=== PATIENT | female | born 1935 | race Caucasian/White ===

== ENCOUNTER → 2017-01-18 | Outpatient (CLI) | payer MEDICARE, OTHER ==
[2017-01-18 10:56] LABS: ABSOLUTE BASOPHILS # (AUTO) 0.1 10^3/uL (0.0-0.2); ABSOLUTE EOSINOPHILS # (AUTO) 0.3 10^3/uL (0.0-0.6); ABSOLUTE LYMPHOCYTES (AUTO) 1.8 10^3/uL (0.5-4.7); ABSOLUTE MONOCYTES (AUTO) 0.6 10^3/uL (0.1-1.4); ABSOLUTE NEUT (AUTO) 4.5 10^3/uL (1.7-8.2); BASOPHILS % (AUTO) 0.8 % (0-2); EOSINOPHILS % (AUTO) 4.1 % (0-6); HEMATOCRIT 39.7 % (36.0-47.0); HEMOGLOBIN 13.1 g/dL (12.0-15.5); HGB HCT DIFFERENCE -0.4; LYMPHOCYTES % (AUTO) 25.3 % (13-45); MEAN CORPUSCULAR HEMOGLOBIN 29.5 pg (27.0-33.4); MEAN CORPUSCULAR VOLUME 89 fl (80-97); MONOCYTES % (AUTO) 8.1 % (3-13); RED BLOOD COUNT 4.44 10^6/uL (3.72-5.28); RED CELL DISTRIBUTION WIDTH 13.8 % (11.5-14.0); SEGMENTED NEUTROPHILS % (AUTO) 61.7 % (42-78); WHITE BLOOD COUNT 7.3 10^3/uL (4.0-10.5)
[2017-01-18 11:26] LABS: ALANINE AMINOTRANSFERASE 26 U/L (9-52); ALBUMIN 3.5 g/dL (3.5-5.0); ALKALINE PHOSPHATASE 95 U/L (38-126); ANION GAP 10 (5-19); ASPARTATE AMINO TRANSFERASE 22 U/L (14-36); BILIRUBIN,TOTAL 0.5 mg/dL (0.2-1.3); BLOOD UREA NITROGEN 14 mg/dL (7-20); CALCIUM 9.9 mg/dL (8.4-10.2); CARBON DIOXIDE 25 mmol/L (22-30); CHLORIDE 106 mmol/L (98-107); CREATININE RESULT 0.77 mg/dL (0.52-1.25); GLUCOSE 140 mg/dL (75-110); POTASSIUM 4.9 mmol/L (3.6-5.0); SODIUM 140.9 mmol/L (137-145); TOTAL PROTEIN 6.6 g/dL (6.3-8.2)
[2017-01-19 11:39] LABS: CREATININE URINE 115.9 mg/dL (Not Estab.); MICROALBUMIN URINE 12.1 ug/mL (Not Estab.)
== END ==
LOC: OD 09:50
PROVIDERS: ATTEND Family Medicine
DX: E11.9 Type 2 diabetes mellitus without complications (principal); Z79.899 Other long term (current) drug therapy
CPT/HCPCS: 36415; 80048; 80076; 82043; 82570; 83036; 85025

== ENCOUNTER → 2017-07-26 | Outpatient (CLI) | payer MEDICARE, OTHER ==
[2017-07-26 08:37] LABS: ABSOLUTE BASOPHILS # (AUTO) 0.1 10^3/uL (0.0-0.2); ABSOLUTE EOSINOPHILS # (AUTO) 0.3 10^3/uL (0.0-0.6); ABSOLUTE LYMPHOCYTES (AUTO) 2.2 10^3/uL (0.5-4.7); ABSOLUTE MONOCYTES (AUTO) 0.5 10^3/uL (0.1-1.4); BASOPHILS % (AUTO) 1.1 % (0-2); EOSINOPHILS % (AUTO) 4.6 % (0-6); HEMOGLOBIN 13.1 g/dL (12.0-15.5); HGB HCT DIFFERENCE -0.7; LYMPHOCYTES % (AUTO) 30.7 % (13-45); MEAN CORPUSCULAR HEMOGLOBIN 29.2 pg (27.0-33.4); MEAN CORPUSCULAR HGB CONC 32.8 g/dL (32.0-36.0); MEAN CORPUSCULAR VOLUME 89 fl (80-97); RED CELL DISTRIBUTION WIDTH 14.8 % (11.5-14.0); SEGMENTED NEUTROPHILS % (AUTO) 56.6 % (42-78); WHITE BLOOD COUNT 7.1 10^3/uL (4.0-10.5)
[2017-07-26 09:16] LABS: ALANINE AMINOTRANSFERASE 21 U/L (9-52); ALBUMIN 3.8 g/dL (3.5-5.0); ALKALINE PHOSPHATASE 126 U/L (38-126); ANION GAP 10 (5-19); ASPARTATE AMINO TRANSFERASE 19 U/L (14-36); BILIRUBIN,DIRECT 0.4 mg/dL (0.0-0.4); BILIRUBIN,TOTAL 0.6 mg/dL (0.2-1.3); BLOOD UREA NITROGEN 12 mg/dL (7-20); CALCIUM 9.6 mg/dL (8.4-10.2); CARBON DIOXIDE 27 mmol/L (22-30); CHLORIDE 105 mmol/L (98-107); CHOLESTEROL 172.14 mg/dL (0-200); CREATININE RESULT 0.73 mg/dL (0.52-1.25); Direct HDL 77 mg/dL (>40); GLUCOSE 192 mg/dL (75-110); POTASSIUM 5.2 mmol/L (3.6-5.0); SODIUM 142.1 mmol/L (137-145); TOTAL PROTEIN 6.3 g/dL (6.3-8.2); TRIGLYCERIDES 130 mg/dL (<150)
[2017-07-26 09:27] LABS: DIRECT LDL 67 mg/dL (<100)
[2017-07-29 14:54] LABS: CREATININE URINE 171.7 mg/dL (Not Estab.); MICROALBUMIN URINE 21.1 ug/mL (Not Estab.)
== END ==
LOC: OD 07:20
PROVIDERS: ATTEND Family Medicine
DX: E11.9 Type 2 diabetes mellitus without complications (principal); E78.5 Hyperlipidemia, unspecified; E55.9 Vitamin D deficiency, unspecified; Z79.899 Other long term (current) drug therapy
CPT/HCPCS: 36415; 80053; 80061; 82043; 82306; 82570; 83036; 84443; 85025

== ENCOUNTER → 2017-08-04 | Outpatient (CLI) | payer MEDICARE, OTHER ==
--- NOTE | 2017-08-04 11:19 | WOMENS IMAGING REPORT ---
EXAM DESCRIPTION: BONE DENSITY HIP/SPINE COMPLETED DATE/TIME: 08/04/2017 9:18 am REASON FOR STUDY: AGE-RELATED OSTEOPROSIS; M81.0 Z12.31 ENCNTR SCREEN MAMMOGRAM FOR MALIGNANT NEOPL ASM OF LAURYN M81.0 AGE-RELATED OSTEOPOROSIS W/O CURRENT PATHOLOGICAL FRAC COMPARISON: 2005, 2009, 2012, 2014 TECHNIQUE: Dual-Energy X-ray Absorptiometry (DEXA) of the AP Spine and Hip. LIMITATIONS: None. FINDINGS: LUMBAR SPINE: The bone mineral density (BMD) measured from L1-L4 in the AP projection correlates with a T-score of -2.4, which is borderline osteoporotic as defined by the World Health Organization. This represents a 4% increase in bone density compared to 2005. This is not statistically significantly different fr om study in 2014 HIP: The bone mineral density (BMD) measured in the left femoral neck at the hip correlates with a T-score of -2.0 , which is osteopenic as defined by the World Health Organization. This represents an 8% in crease in bone density compared to 2014. IMPRESSION: 1. LUMBAR SPINE: Borderline osteoporotic 2. HIP: Osteopenic COMMENT: The World Health Organization defines low BMD as follows: T-score: Normal: Greater than -1.0 Osteopenia: Between -1.0 and -2.5 Osteoporosis: Less than -2.5 without fractures Established osteoporosis: Less than -2.5 with fractures In general, you may wish to consider: Diagnosis Treatment Follow-up DEXA Normal BMD Prevention 2-3 years Osteopenia Prevention/Therapy 1-2 years Osteoporosis Therapy Yearly TECHNICAL DOCUMENTATION: JOB ID: [id number] [employer]- All Rights Reserved
--- NOTE | 2017-08-04 17:11 | WOMENS IMAGING REPORT ---
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 LIMITATIONS: None. FINDINGS: Findings present which are benign by mammographic criteria. No suspicious masses, calcifi cations or architectural distortion. Pertinent benign findings: Stable bilateral breast parenchymal calcifications Read with the assistance of CAD. .[facility] - R2 Cenova Version 1.3 .[facility] Imaging - R2 Cenova Version 1.3 .[facility] Imaging - R2 Cenova Version 2.4 .[facility] - R2 Cenova Version 2.4 .[facility] - R2 [employer] Cook Version 9.2 Benign mammographic findings may include one or more of the following: Smooth masses, popcorn/rim/co arse calcifications, asymmetries, post-procedure changes, and lesions with long-standing stability. IMPRESSION: BENIGN MAMMOGRAPHIC FINDINGS. BIRADS 2 BREAST DENSITY: b. There are scattered areas of fibroglandular density. BIRAD: 2 BENIGN FINDING(S) RECOMMENDATION: RECOMMENDATION: ROUTINE SCREENING Please continue bilateral screening tomosynthesis in July 2018 COMMENT: The patient has been notified of the results by letter per SA requirements. Additional no tification policies are in place for contacting patient with suspicious or incomplete findings. Quality ID #[id number]: The [employer] recommends an annual screening mammogram for women aged 40 years or over. This facility utilizes a reminder system to ensure that all patients receive reminder letters, and/or direct phone calls for appointments. This includes reminders for routine scr eening mammograms, diagnostic mammograms, or other Breast Imaging Interventions when appropriate. Th is patient will be placed in the appropriate reminder system. The [employer] (ACR) has developed recommendations for screening MRI of the breast s in certain patient populations, to be used in conjunction with mammography. Breast MRI surveillanc e may be appropriate for women with more than 20% lifetime risk of developing breast cancer as deter mined by genetic testing, significant family history of the disease, or history of mantle radiation f or Hodgkins Disease. ACR Practice Guidelines 2008. DBT Technology DBT is a type of tomographic mammography. With conventional mammography, overlapping breast tissue ma y make lesions difficult to detect, even with good compression. DBT uses an x-ray tube that rotates a round the breast, taking images at different angles. These images are then combined to create thin sl ices of the breast that the radiologist can view as a 3D reconstruction. The Hologic unit can perform full-field digital mammograms (2D imaging); or DBT (3D imaging); or both, in a combination mode that quickly performs both the mammogram and the tomosynthesis scan while the breast is still compressed. PQRS 6045F: Fluoroscopic imaging is not utilized for breast tomosynthesis. TECHNICAL DOCUMENTATION: FINDING NUMBER: (1) ASSESSMENT: (1) JOB ID: [id number]- All Rights Reserved
== END ==
LOC: WI 08:38
PROVIDERS: ATTEND Family Medicine
DX: Z12.31 Encounter for screening mammogram for malignant neoplasm of breast (principal); M81.0 Age-related osteoporosis without current pathological fracture
CPT/HCPCS: 77063; 77080; G0202; 77067

== ENCOUNTER → 2017-10-28 | Outpatient (CLI) | payer MEDICARE, OTHER ==
[2017-10-28 10:18] LABS: ANION GAP 11 (5-19); BLOOD UREA NITROGEN 16 mg/dL (7-20); CALCIUM 9.9 mg/dL (8.4-10.2); CARBON DIOXIDE 27 mmol/L (22-30); CHLORIDE 105 mmol/L (98-107); GLUCOSE 199 mg/dL (75-110); SODIUM 142.7 mmol/L (137-145)
[2017-10-28 10:25] LABS: POTASSIUM 6.1 mmol/L (3.6-5.0)
[2017-10-28 12:58] LABS: ABSOLUTE BASOPHILS # (AUTO) 0.1 10^3/uL (0.0-0.2); ABSOLUTE EOSINOPHILS # (AUTO) 0.2 10^3/uL (0.0-0.6); ABSOLUTE LYMPHOCYTES (AUTO) 2.4 10^3/uL (0.5-4.7); ABSOLUTE MONOCYTES (AUTO) 0.4 10^3/uL (0.1-1.4); ABSOLUTE NEUT (AUTO) 4.6 10^3/uL (1.7-8.2); BASOPHILS % (AUTO) 1.1 % (0-2); EOSINOPHILS % (AUTO) 2.7 % (0-6); HEMATOCRIT 38.8 % (36.0-47.0); HEMOGLOBIN 13.1 g/dL (12.0-15.5); HGB HCT DIFFERENCE 0.5; MEAN CORPUSCULAR HEMOGLOBIN 29.8 pg (27.0-33.4); MEAN CORPUSCULAR HGB CONC 33.8 g/dL (32.0-36.0); MEAN CORPUSCULAR VOLUME 88 fl (80-97); MONOCYTES % (AUTO) 5.8 % (3-13); RED CELL DISTRIBUTION WIDTH 13.7 % (11.5-14.0); SEGMENTED NEUTROPHILS % (AUTO) 59.4 % (42-78); WHITE BLOOD COUNT 7.7 10^3/uL (4.0-10.5)
--- NOTE | 2017-10-28 13:35 | EKG REPORT ---
SEVERITY:- NORMAL ECG - SINUS RHYTHM : Confirmed by: Brent Pack MD 28-Oct-2017 13:35:02
== END ==
LOC: OD 09:00
PROVIDERS: ATTEND Family Medicine
DX: E87.5 Hyperkalemia (principal); E11.9 Type 2 diabetes mellitus without complications
CPT/HCPCS: 36415; 80048; 83036; 84132; 85025; 93005; 93010

== ENCOUNTER → 2018-01-24 | Outpatient (CLI) | payer MEDICARE, OTHER ==
[2018-01-24 09:51] LABS: ANION GAP 12 (5-19); BLOOD UREA NITROGEN 16 mg/dL (7-20); CALCIUM 9.9 mg/dL (8.4-10.2); CARBON DIOXIDE 24 mmol/L (22-30); CHLORIDE 105 mmol/L (98-107); GLUCOSE 181 mg/dL (75-110); POTASSIUM 5.4 mmol/L (3.6-5.0); SODIUM 141.2 mmol/L (137-145)
== END ==
LOC: OD 08:30
PROVIDERS: ATTEND Family Medicine
DX: E11.9 Type 2 diabetes mellitus without complications (principal)
CPT/HCPCS: 36415; 80048; 83036

== ENCOUNTER → 2018-01-31 | Outpatient (CLI) | payer MEDICARE, OTHER ==
[2018-02-03 11:42] LABS: ALDOSTERONE 2.1 ng/dL (0.0-30.0)
[2018-02-03 14:29] LABS: RENIN ACTIVITY 1.153 ng/mL/hr (0.167-5.380)
== END ==
LOC: OD 07:45
PROVIDERS: ATTEND Family Medicine
DX: E87.5 Hyperkalemia (principal)
CPT/HCPCS: 36415; 82088; 82533; 84132; 84244

== ENCOUNTER → 2018-04-29 | Outpatient (CLI) | payer MEDICARE, OTHER ==
[2018-04-29 08:46] LABS: HEMATOCRIT 39.7 % (36.0-47.0); RED BLOOD COUNT 4.45 10^6/uL (3.72-5.28); WHITE BLOOD COUNT 7.4 10^3/uL (4.0-10.5)
[2018-04-29 08:47] LABS: ABSOLUTE BASOPHILS # (AUTO) 0.1 10^3/uL (0.0-0.2); ABSOLUTE EOSINOPHILS # (AUTO) 0.3 10^3/uL (0.0-0.6); ABSOLUTE LYMPHOCYTES (AUTO) 2.1 10^3/uL (0.5-4.7); ABSOLUTE MONOCYTES (AUTO) 0.6 10^3/uL (0.1-1.4); ABSOLUTE NEUT (AUTO) 4.4 10^3/uL (1.7-8.2); BASOPHILS % (AUTO) 1.1 % (0-2); EOSINOPHILS % (AUTO) 4.1 % (0-6); LYMPHOCYTES % (AUTO) 27.8 % (13-45); MEAN CORPUSCULAR HEMOGLOBIN 29.3 pg (27.0-33.4); MEAN CORPUSCULAR HGB CONC 32.9 g/dL (32.0-36.0); MEAN CORPUSCULAR VOLUME 89 fl (80-97); MONOCYTES % (AUTO) 7.5 % (3-13); PLATELET COUNT 221 10^3/uL (150-450); RED CELL DISTRIBUTION WIDTH 13.8 % (11.5-14.0); SEGMENTED NEUTROPHILS % (AUTO) 59.5 % (42-78); TOTAL CELLS COUNTED % (AUTO) 100 %
[2018-04-29 09:19] LABS: ALANINE AMINOTRANSFERASE 23 U/L (9-52); ALBUMIN 3.7 g/dL (3.5-5.0); ALKALINE PHOSPHATASE 104 U/L (38-126); ANION GAP 10 (5-19); ASPARTATE AMINO TRANSFERASE 17 U/L (14-36); BILIRUBIN,DIRECT 0.3 mg/dL (0.0-0.4); BILIRUBIN,TOTAL 0.6 mg/dL (0.2-1.3); BLOOD UREA NITROGEN 14 mg/dL (7-20); CALCIUM 9.3 mg/dL (8.4-10.2); CARBON DIOXIDE 23 mmol/L (22-30); CHLORIDE 110 mmol/L (98-107); CHOLESTEROL 184.83 mg/dL (0-200); GLUCOSE 162 mg/dL (75-110); POTASSIUM 4.9 mmol/L (3.6-5.0); SODIUM 142.8 mmol/L (137-145); TOTAL PROTEIN 6.3 g/dL (6.3-8.2); TRIGLYCERIDES 100 mg/dL (<150)
[2018-04-29 09:30] LABS: DIRECT LDL 72 mg/dL (<100)
[2018-04-30 11:38] LABS: CREATININE URINE 112.7 mg/dL (Not Estab.); MICROALBUMIN URINE 8.4 ug/mL (Not Estab.)
== END ==
LOC: OD 07:47
PROVIDERS: ATTEND Family Medicine
DX: E11.9 Type 2 diabetes mellitus without complications (principal); E78.5 Hyperlipidemia, unspecified; Z79.899 Other long term (current) drug therapy
CPT/HCPCS: 36415; 80053; 80061; 82043; 82570; 83036; 84443; 85025

== ENCOUNTER → 2018-08-02 | Outpatient (CLI) | payer MEDICARE, OTHER ==
[2018-08-02 09:08] LABS: ABSOLUTE BASOPHILS # (AUTO) 0.1 10^3/uL (0.0-0.2); ABSOLUTE EOSINOPHILS # (AUTO) 0.2 10^3/uL (0.0-0.6); ABSOLUTE LYMPHOCYTES (AUTO) 1.9 10^3/uL (0.5-4.7); ABSOLUTE MONOCYTES (AUTO) 0.5 10^3/uL (0.1-1.4); ABSOLUTE NEUT (AUTO) 3.8 10^3/uL (1.7-8.2); BASOPHILS % (AUTO) 1.2 % (0-2); EOSINOPHILS % (AUTO) 3.6 % (0-6); HEMATOCRIT 38.2 % (36.0-47.0); HEMOGLOBIN 12.8 g/dL (12.0-15.5); LYMPHOCYTES % (AUTO) 29.3 % (13-45); MEAN CORPUSCULAR HEMOGLOBIN 29.8 pg (27.0-33.4); MEAN CORPUSCULAR HGB CONC 33.6 g/dL (32.0-36.0); MEAN CORPUSCULAR VOLUME 89 fl (80-97); PLATELET COUNT 190 10^3/uL (150-450); RED BLOOD COUNT 4.31 10^6/uL (3.72-5.28); RED CELL DISTRIBUTION WIDTH 13.9 % (11.5-14.0); SEGMENTED NEUTROPHILS % (AUTO) 57.9 % (42-78); TOTAL CELLS COUNTED % (AUTO) 100 %; WHITE BLOOD COUNT 6.5 10^3/uL (4.0-10.5)
[2018-08-02 09:52] LABS: ALANINE AMINOTRANSFERASE 21 U/L (9-52); ALBUMIN 3.7 g/dL (3.5-5.0); ALKALINE PHOSPHATASE 93 U/L (38-126); ANION GAP 9 (5-19); ASPARTATE AMINO TRANSFERASE 20 U/L (14-36); BILIRUBIN,DIRECT 0.3 mg/dL (0.0-0.4); BILIRUBIN,TOTAL 0.7 mg/dL (0.2-1.3); BLOOD UREA NITROGEN 16 mg/dL (7-20); CALCIUM 9.3 mg/dL (8.4-10.2); CARBON DIOXIDE 23 mmol/L (22-30); CHLORIDE 109 mmol/L (98-107); CHOLESTEROL 159.47 mg/dL (0-200); GLUCOSE 161 mg/dL (75-110); POTASSIUM 4.6 mmol/L (3.6-5.0); SODIUM 141.1 mmol/L (137-145); TOTAL PROTEIN 6.4 g/dL (6.3-8.2); TRIGLYCERIDES 90 mg/dL (<150)
[2018-08-02 10:03] LABS: DIRECT LDL 61 mg/dL (<100)
[2018-08-03 12:38] LABS: CREATININE URINE 118.9 mg/dL (Not Estab.); MICROALBUMIN URINE 5.8 ug/mL (Not Estab.)
== END ==
LOC: OD 07:57
PROVIDERS: ATTEND Family Medicine
DX: E11.9 Type 2 diabetes mellitus without complications (principal); E55.9 Vitamin D deficiency, unspecified; E78.5 Hyperlipidemia, unspecified; Z79.899 Other long term (current) drug therapy
CPT/HCPCS: 36415; 80053; 80061; 82043; 82306; 82570; 83036; 84443; 85025

== ENCOUNTER → 2019-01-03 | Outpatient (CLI) | payer MEDICARE, OTHER ==
--- NOTE | 2019-01-05 16:54 | WOMENS IMAGING REPORT ---
EXAM DESCRIPTION: 3D SCREENING MAMMO BILAT COMPLETED DATE/TIME: 01/03/2019 9:24 am REASON FOR STUDY: Z12.31 SCREENING MAMMO Z12.31 ENCNTR SCREEN MAMMOGRAM FOR MALIGNANT NEOPLASM OF B RE COMPARISON: Multiple since 2009 TECHNIQUE: Standard craniocaudal and mediolateral oblique views of each breast recorded using digita l acquisition and breast tomosynthesis. LIMITATIONS: None. FINDINGS: No masses, calcifications or architectural distortion. No areas of suspicion. Read with the assistance of CAD. .[facility] - R2 Cenova Version 1.3 .[facility] Imaging - R2 Cenova Version 2.1 .[facility] Imaging - R2 Cenova Version 2.4 .[facility] - R2 Cenova Version 2.4 .[facility] - R2 Field Technical Assistant Version 9.2 IMPRESSION: NORMAL MAMMOGRAM. BIRADS 1. BREAST DENSITY: b. There are scattered areas of fibroglandular density. BIRAD: 1 NEGATIVE RECOMMENDATION: ROUTINE SCREENING COMMENT: The patient has been notified of the results by letter per SA requirements. Additional no tification policies are in place for contacting patient with suspicious or incomplete findings. Quality ID #[id number]: The [employer] recommends an annual screening mammogram for women aged 40 years or over. This facility utilizes a reminder system to ensure that all patients receive reminder letters, and/or direct phone calls for appointments. This includes reminders for routine scr eening mammograms, diagnostic mammograms, or other Breast Imaging Interventions when appropriate. Th is patient will be placed in the appropriate reminder system. The [employer] (ACR) has developed recommendations for screening MRI of the breast s in certain patient populations, to be used in conjunction with mammography. Breast MRI surveillanc e may be appropriate for women with more than 20% lifetime risk of developing breast cancer as deter mined by genetic testing, significant family history of the disease, or history of mantle radiation f or Hodgkins Disease. ACR Practice Guidelines 2008. DBT Technology DBT is a type of tomographic mammography. With conventional mammography, overlapping breast tissue ma y make lesions difficult to detect, even with good compression. DBT uses an x-ray tube that rotates a round the breast, taking images at different angles. These images are then combined to create thin sl ices of the breast that the radiologist can view as a 3D reconstruction. The [employer] unit can perform full-field digital mammograms (2D imaging); or DBT (3D imaging); or both, in a combination mode that quickly performs both the mammogram and the tomosynthesis scan while the breast is still compressed. PQRS 6045F: Fluoroscopic imaging is not utilized for breast tomosynthesis. TECHNICAL DOCUMENTATION: FINDING NUMBER: (1) ASSESSMENT: (1) JOB ID: [id number] [employer]- All Rights Reserved Reading location - IP/workstation name: [email or web address]
== END ==
LOC: WI 07:22
PROVIDERS: ATTEND Family Medicine
DX: Z12.31 Encounter for screening mammogram for malignant neoplasm of breast (principal)
CPT/HCPCS: 77063; 77067

== ENCOUNTER → 2019-02-02 | Outpatient (CLI) | payer MEDICARE, OTHER ==
[2019-02-02 11:00] LABS: ABSOLUTE BASOPHILS # (AUTO) 0.1 10^3/uL (0.0-0.2); ABSOLUTE EOSINOPHILS # (AUTO) 0.2 10^3/uL (0.0-0.6); ABSOLUTE LYMPHOCYTES (AUTO) 1.8 10^3/uL (0.5-4.7); ABSOLUTE MONOCYTES (AUTO) 0.5 10^3/uL (0.1-1.4); ABSOLUTE NEUT (AUTO) 6.4 10^3/uL (1.7-8.2); BASOPHILS % (AUTO) 0.8 % (0-2); EOSINOPHILS % (AUTO) 2.6 % (0-6); HEMATOCRIT 40.6 % (36.0-47.0); HEMOGLOBIN 13.6 g/dL (12.0-15.5); LYMPHOCYTES % (AUTO) 19.4 % (13-45); MEAN CORPUSCULAR HEMOGLOBIN 29.7 pg (27.0-33.4); MEAN CORPUSCULAR HGB CONC 33.4 g/dL (32.0-36.0); MEAN CORPUSCULAR VOLUME 89 fl (80-97); MONOCYTES % (AUTO) 5.8 % (3-13); PLATELET COUNT 189 10^3/uL (150-450); RED BLOOD COUNT 4.58 10^6/uL (3.72-5.28); RED CELL DISTRIBUTION WIDTH 13.9 % (11.5-14.0); SEGMENTED NEUTROPHILS % (AUTO) 71.4 % (42-78); TOTAL CELLS COUNTED % (AUTO) 100 %
[2019-02-02 11:17] LABS: ALANINE AMINOTRANSFERASE 14 U/L (9-52); ALBUMIN 4.4 g/dL (3.5-5.0); ALKALINE PHOSPHATASE 114 U/L (38-126); ANION GAP 9 (5-19); ASPARTATE AMINO TRANSFERASE 28 U/L (14-36); BILIRUBIN,DIRECT 0.3 mg/dL (0.0-0.4); BILIRUBIN,TOTAL 0.9 mg/dL (0.2-1.3); BLOOD UREA NITROGEN 17 mg/dL (7-20); CALCIUM 9.8 mg/dL (8.4-10.2); CARBON DIOXIDE 24 mmol/L (22-30); CHLORIDE 108 mmol/L (98-107); CHOLESTEROL 156.98 mg/dL (0-200); GLUCOSE 160 mg/dL (75-110); POTASSIUM 5.3 mmol/L (3.6-5.0); SODIUM 141.3 mmol/L (137-145); TOTAL PROTEIN 6.4 g/dL (6.3-8.2); TRIGLYCERIDES 97 mg/dL (<150)
[2019-02-02 11:28] LABS: DIRECT LDL 65 mg/dL (<100)
[2019-02-03 10:38] LABS: CREATININE URINE 160.3 mg/dL (Not Estab.); MICROALBUMIN URINE 11.6 ug/mL (Not Estab.)
== END ==
LOC: OD 10:25
PROVIDERS: ATTEND Family Medicine
DX: E11.9 Type 2 diabetes mellitus without complications (principal); E55.9 Vitamin D deficiency, unspecified; E78.5 Hyperlipidemia, unspecified
CPT/HCPCS: 36415; 80053; 80061; 82043; 82306; 82570; 83036; 85025

== ENCOUNTER → 2019-03-22 | Outpatient (CLI) | payer MEDICARE, OTHER ==
--- NOTE | 2019-03-22 13:09 | RADIOLOGY REPORT (SQ) ---
EXAM DESCRIPTION: LUMBAR SPINE COMPLETE COMPLETED DATE/TIME: 03/22/2019 11:05 am REASON FOR STUDY: PAIN LT HIP, STRAIN OF MUSCLE,FASCIA TENDON M25.552 PAIN IN LEFT HIP COMPARISON: None. NUMBER OF VIEWS: Five views including obliques. TECHNIQUE: AP, lateral, oblique, and sacral radiographic images acquired of the lumbar spine. LIMITATIONS: None. FINDINGS: MINERALIZATION: Osteopenic SEGMENTATION: Normal. No transitional anatomy. ALIGNMENT: Mild grade 1 anterolisthesis of L5 over S1 related to facet arthropathy VERTEBRAE: Maintained height. No fracture or worrisome bone lesion. DISCS: Disc space loss of height at L3-4, L4-5, and L5-S1 POSTERIOR ELEMENTS: Pedicles and facets are intact. No pars defect or posterior arch defects. Lower lumbar facet arthropathy at L3-4, L4-5, and L5-S1 HARDWARE: None in the spine. PARASPINAL SOFT TISSUES: Calcified abdominal aorta without aneurysm PELVIS: SI joints intact OTHER: No other significant finding. IMPRESSION: Degenerative changes lower lumbar spine. No gross acute fracture TECHNICAL DOCUMENTATION: JOB ID: [id number] [email or web address]- All Rights Reserved Reading location - IP/workstation name: [email or web address]
--- NOTE | 2019-03-22 13:11 | RADIOLOGY REPORT (SQ) ---
EXAM DESCRIPTION: HIP LEFT AP/LATERAL COMPLETED DATE/TIME: 03/22/2019 11:05 am REASON FOR STUDY: PAIN LT HIP, STRAIN OF MUSCLE,FASCIA TENDON M25.552 PAIN IN LEFT HIP COMPARISON: Left hip two views 07/26/2014 NUMBER OF VIEWS: Two views. TECHNIQUE: AP pelvis and additional frog-leg view of the left hip. LIMITATIONS: None. FINDINGS: MINERALIZATION: Age-appropriate osteopenia. LEFT HIP: No fracture or dislocation. No worrisome bone lesions. RIGHT HIP: No fracture or dislocation. No worrisome bone lesions. PUBIS AND ISCHIUM: No fracture. PELVIS: No fracture. SACRUM: No fracture or dislocation. No worrisome bone lesions. SOFT TISSUES: No findings. OTHER: No other significant finding. IMPRESSION: NEGATIVE STUDY OF THE LEFT HIP AND PELVIS. NO RADIOGRAPHIC EVIDENCE OF ACUTE INJURY. TECHNICAL DOCUMENTATION: JOB ID: [id number] [employer]- All Rights Reserved Reading location - IP/workstation name: [email or web address]
== END ==
LOC: OD 10:43
PROVIDERS: ATTEND Family Medicine
DX: M25.552 Pain in left hip (principal); M47.896 Other spondylosis, lumbar region
CPT/HCPCS: 72110

== ENCOUNTER → 2019-03-23 | Outpatient (CLI) | payer MEDICARE, OTHER ==
--- NOTE | 2019-03-23 17:39 | RADIOLOGY REPORT (SQ) ---
EXAM DESCRIPTION: MRI LUMBAR SPINE WITHOUT COMPLETED DATE/TIME: 03/23/2019 5:25 pm REASON FOR STUDY: SPONDYLOLISTHESIS, LUMBOSACRAL REGION M43.17 SPONDYLOLISTHESIS, LUMBOSACRAL REGIO N COMPARISON: Plain radiographs TECHNIQUE: Sagittal and Axial imaging includes T1, T2, STIR and gradient echo sequences. Coronal T2/ HASTE imaging. LIMITATIONS: None. FINDINGS: VISUALIZED UPPER ABDOMEN: Limited evaluation. No acute or suspicious findings suggested. SEGMENTATION: No transitional anatomy. The lowest well-developed disc space is labeled L5-S1. ALIGNMENT: Anatomic. VERTEBRAE: There is marked signal alteration in the L3 vertebral body. Under surface compression. N o significant loss of height. No extension into the pedicles. BONE MARROW: Signal alteration L3 as describe DISC SIGNAL: Normal. No significant abnormal signal or loss of height. POSTERIOR ELEMENTS: Generally intact. No pars defect evident. HARDWARE: None in the spine. CORD AND CONUS: Normal in size and signal intensity. Conus at the appropriate level. SOFT TISSUES: No aortic aneurysm seen. No bulky retroperitoneal adenopathy or mass. No paraspinal mas s or fluid. L1-L2: No significant spinal stenosis or exit foraminal stenosis. L2-L3: Disc bulge with mild narrowing of the exit foramina. L3-L4: Generalized disc bulge. Right paracentral protrusion. Moderate narrowing of the right exit f oramina. L4-L5: No significant spinal stenosis or exit foraminal stenosis. L5-S1: No significant spinal stenosis or exit foraminal stenosis. LOWER THORACIC: Incompletely imaged. No stenosis seen. SACRUM: Visualized upper sacrum intact. OTHER: No other significant findings. IMPRESSION: Significant finding is signal alteration the L3 vertebral body without significant loss of height, although there does appear to be minimal undersurface concavity. Possibly an early fractu re. Somewhat worrisome for marrow replacement/tumor within bone. TECHNICAL DOCUMENTATION: JOB ID: [id number] [employer]- All Rights Reserved Reading location - IP/workstation name: [email or web address]
== END ==
LOC: RAD 15:51
PROVIDERS: ATTEND Family Medicine
DX: M43.17 Spondylolisthesis, lumbosacral region (principal)
CPT/HCPCS: 72148

== ENCOUNTER 2019-05-05 15:05 | Emergency (ER) | payer MEDICARE, OTHER ==
--- NOTE | 2019-05-05 15:51 | ER Document Report ---
ED Medical Screen (RME) - General Chief Complaint: Palpitations Stated Complaint: HEART PALPITATIONS Time Seen by Provider: 05/05/19 15:49 Primary Care Provider: SLOANE CERDA MD [Primary Care Provider] - Follow up as needed Notes: Patient is a 84-year-old female history of hypertension hyperlipidemia presents feels as though her heart was "beating out of my chest." States she could hear it in her ears. States she did take her metoprolol prior to arrival to the emergency room. States she feels as though that has helped a lot. Patient is currently denying any chest pain or pressure or any palpitation feeling. Patient is denying any history of anxiety but states she has felt very anxious recently. States "I feel like I just want to cry." Patient is denying any SI or HI. GENERAL: Alert, interacts well. No acute distress. LUNGS: Clear to auscultation bilaterally, no wheezes, rales, or rhonchi. No respiratory distress. HEART: Regular rate and rhythm. No murmur I have greeted and performed a rapid initial assessment of this patient. A comprehensive ED assessment and evaluation of the patient, analysis of test results and completion of the medical decision making process will be conducted by additional ED providers. This medical record was dictated with voice recognizing software. There may be grammatical, syntax errors that are unintended. TRAVEL OUTSIDE OF THE [place] IN LAST 30 DAYS: No - Related Data Allergies/Adverse Reactions: No Known Drug Allergies Allergy (Verified 09/21/15 18:54) Past Medical History - Past Medical History Cardiac Medical History: Reports: Hx Hypercholesterolemia, Hx Hypertension Denies: Hx Coronary Artery Disease Endocrine Medical History: Reports: Hx Diabetes Mellitus Type 2 Physical Exam - Vital signs Vitals: Temp Pulse Resp BP Pulse Ox 97.9 F 98 20 145/114 H 97 05/05/19 15:11 05/05/19 15:11 05/05/19 15:11 05/05/19 15:11 05/05/19 15:11 Course - Vital Signs Vital signs: Temp Pulse Resp BP Pulse Ox 97.9 F 98 20 145/114 H 97 05/05/19 15:11 05/05/19 15:11 05/05/19 15:11 05/05/19 15:11 05/05/19 15:11 Doctor's Discharge - Discharge Referrals: SLOANE CERDA MD [Primary Care Provider] - Follow up as needed
[2019-05-05 16:14] LABS: ABSOLUTE BASOPHILS # (AUTO) 0.1 10^3/uL (0.0-0.2); ABSOLUTE EOSINOPHILS # (AUTO) 0.3 10^3/uL (0.0-0.6); ABSOLUTE LYMPHOCYTES (AUTO) 1.9 10^3/uL (0.5-4.7); ABSOLUTE MONOCYTES (AUTO) 0.6 10^3/uL (0.1-1.4); ABSOLUTE NEUT (AUTO) 4.4 10^3/uL (1.7-8.2); HEMATOCRIT 39.2 % (36.0-47.0); HEMOGLOBIN 12.9 g/dL (12.0-15.5); LYMPHOCYTES % (AUTO) 26.3 % (13-45); MEAN CORPUSCULAR VOLUME 88 fl (80-97); MONOCYTES % (AUTO) 8.7 % (3-13); PLATELET COUNT 206 10^3/uL (150-450); RED BLOOD COUNT 4.47 10^6/uL (3.72-5.28); RED CELL DISTRIBUTION WIDTH 13.7 % (11.5-14.0); TOTAL CELLS COUNTED % (AUTO) 100 %; WHITE BLOOD COUNT 7.4 10^3/uL (4.0-10.5)
--- NOTE | 2019-05-05 16:20 | RADIOLOGY REPORT (SQ) ---
EXAM DESCRIPTION: CHEST SINGLE VIEW COMPLETED DATE/TIME: 05/05/2019 4:11 pm REASON FOR STUDY: palpitations COMPARISON: 01/27/2016 NUMBER OF VIEWS: One view. TECHNIQUE: Single frontal radiographic view of the chest acquired. LIMITATIONS: None. FINDINGS: LUNGS AND PLEURA: There is hyperexpansion. Basilar interstitial markings are prominent major spect mild interstitial edema. No definite effusions. MEDIASTINUM AND HILAR STRUCTURES: No masses. Contour normal. HEART AND VASCULAR STRUCTURES: Heart size is stable with central vascular prominence. BONES: No acute findings. HARDWARE: None in the chest. OTHER: No other significant finding. IMPRESSION: COPD with probable superimposed mild interstitial edema. No consolidation. TECHNICAL DOCUMENTATION: JOB ID: [id number] [email or web address]- All Rights Reserved Reading location - IP/workstation name: [email or web address]
[2019-05-05 16:38] LABS: ALANINE AMINOTRANSFERASE 19 U/L (9-52); ALBUMIN 3.8 g/dL (3.5-5.0); ALKALINE PHOSPHATASE 132 U/L (38-126); ANION GAP 9 (5-19); ASPARTATE AMINO TRANSFERASE 24 U/L (14-36); BILIRUBIN,DIRECT 0.3 mg/dL (0.0-0.4); BILIRUBIN,TOTAL 0.5 mg/dL (0.2-1.3); BLOOD UREA NITROGEN 14 mg/dL (7-20); CALCIUM 9.5 mg/dL (8.4-10.2); CARBON DIOXIDE 23 mmol/L (22-30); CHLORIDE 109 mmol/L (98-107); CREATINE KINASE 69 U/L (30-135); GLUCOSE 147 mg/dL (75-110); POTASSIUM 5.1 mmol/L (3.6-5.0); SODIUM 140.8 mmol/L (137-145); TOTAL PROTEIN 6.6 g/dL (6.3-8.2)
[2019-05-05 16:49] LABS: CREATINE KINASE MB 1.49 ng/mL (<4.55); TROPONIN I 0.024 ng/mL
--- NOTE | 2019-05-05 17:17 | ER Document Report ---
ED General - General Chief Complaint: Palpitations Stated Complaint: HEART PALPITATIONS Time Seen by Provider: 05/05/19 15:49 Primary Care Provider: SLOANE CERDA MD [Primary Care Provider] - Follow up in 3-5 days Notes: Patient is a 84-year-old female that presents to the emergency department for chief complaint of elevated heart rate. Patient reports that she felt like her heart was racing at home earlier this evening. She has a long history of this and is supposed to be taking metoprolol, which she admits she is not very compliant with. She did take a dose after she felt it racing and now she is feeling much better. She denies having any chest pain, shortness of breath, nausea, vomiting, diaphoresis, or any recent illness. No other complaints at this time. Past Medical History: tachycardia, htn hld, dm Past Surgical History: denies surgical history Social History: admits to smoking cigarettes, denies ETOH, or drug use. Family History: Reviewed and noncontributory for presenting illness Allergies: Reviewed, see documented allergy list. REVIEW OF SYSTEMS: Other than noted above, the 12 point review of systems was reviewed with the patient and were negative, all pertinent findings are included in the HPI. PHYSICAL EXAMINATION: Vital signs reviewed, nursing noted reviewed. GENERAL: Well-appearing, well-nourished and in no acute distress. HEAD: Atraumatic, normocephalic. EYES: Eyes appear normal, extraocular movements intact, sclera anicteric, conjunctiva are normal. ENT: nares patent, oropharynx clear without exudates. Moist mucous membranes. NECK: Normal range of motion, supple without lymphadenopathy LUNGS: Breath sounds clear to auscultation bilaterally and equal. No wheezes rales or rhonchi. HEART: Regular rate and rhythm without murmurs ABDOMEN: Soft, nontender, normoactive bowel sounds. No rebound, guarding, or rigidity. No masses appreciated. EXTREMITIES: Nontender, good range of motion, no pitting or edema. NEUROLOGICAL: No focal neurological deficits. Moves all extremities spontaneously Motor and sensory grossly intact on exam. PSYCH: Appears anxious on exam. Answering questions appropriately. SKIN: Warm, Dry, normal turgor, no rashes or lesions noted on exposed skin TRAVEL OUTSIDE OF THE [place] IN LAST 30 DAYS: No - Related Data Allergies/Adverse Reactions: No Known Drug Allergies Allergy (Verified 10/24/15 18:54) Past Medical History - Social History Smoking Status: Never Smoker Frequency of alcohol use: None Drug Abuse: None Family History: DM, Hypertension Patient has suicidal ideation: No Patient has homicidal ideation: No - Past Medical History Cardiac Medical History: Reports: Hx Hypercholesterolemia, Hx Hypertension Denies: Hx Coronary Artery Disease Endocrine Medical History: Reports: Hx Diabetes Mellitus Type 2 Renal/ Medical History: Denies: Hx Peritoneal Dialysis Physical Exam - Vital signs Vitals: Temp Pulse Resp BP Pulse Ox 97.9 F 98 20 145/114 H 97 05/05/19 15:11 05/05/19 15:11 05/05/19 15:11 05/05/19 15:11 05/05/19 15:11 Course - Re-evaluation Re-evalutation: Patient seen and examined, vital signs reviewed, patient is not tachycardic at this time on my exam. Laboratory data and CXR obtained, and reviewed. Bloodwork was unremarkable, no significant anemia, no leukocytosis, normal renal function, troponin negative, and negative cxr, and normal TSH. Patient was feeling well, although anxious, and overall felt improved and was asking to be discharged. I discussed with her results and advised follow-up with her PCP and to return if her symptoms came back or is she developed any chest pain or shortness of breath associated. She was agreeable with plan of care and discharged to home. Laboratory 05/05/19 05/05/19 05/05/19 16:00 16:00 16:00 WBC 7.4 RBC 4.47 Hgb 12.9 Hct 39.2 MCV 88 MCH 29.0 MCHC 33.0 RDW 13.7 Plt Count 206 Seg Neutrophils % 60.0 Lymphocytes % 26.3 Monocytes % 8.7 Eosinophils % 4.0 Basophils % 1.0 Absolute Neutrophils 4.4 Absolute Lymphocytes 1.9 Absolute Monocytes 0.6 Absolute Eosinophils 0.3 Absolute Basophils 0.1 Sodium 140.8 Potassium 5.1 H Chloride 109 H Carbon Dioxide 23 Anion Gap 9 BUN 14 Creatinine 0.69 Est GFR ( Amer) > 60 Est GFR (Non-Af Amer) > 60 Glucose 147 H Calcium 9.5 Total Bilirubin 0.5 Direct Bilirubin 0.3 Neonat Total Bilirubin Not Reportable Neonat Direct Bilirubin Not Reportable Neonat Indirect Bili Not Reportable AST 24 ALT 19 Alkaline Phosphatase 132 H Creatine Kinase 69 CK-MB (CK-2) 1.49 Troponin I 0.024 Total Protein 6.6 Albumin 3.8 TSH 05/05/19 16:00 WBC RBC Hgb Hct MCV MCH MCHC RDW Plt Count Seg Neutrophils % Lymphocytes % Monocytes % Eosinophils % Basophils % Absolute Neutrophils Absolute Lymphocytes Absolute Monocytes Absolute Eosinophils Absolute Basophils Sodium Potassium Chloride Carbon Dioxide Anion Gap BUN Creatinine Est GFR ( Amer) Est GFR (Non-Af Amer) Glucose Calcium Total Bilirubin Direct Bilirubin Neonat Total Bilirubin Neonat Direct Bilirubin Neonat Indirect Bili AST ALT Alkaline Phosphatase Creatine Kinase CK-MB (CK-2) Troponin I Total Protein Albumin TSH 1.80 Chest X-Ray 05/05/19 15:49 IMPRESSION: COPD with probable superimposed mild interstitial edema. No consolidation. - Vital Signs Vital signs: Temp Pulse Resp BP Pulse Ox 97.8 F 65 16 168/78 H 97 05/05/19 18:00 05/05/19 18:00 05/05/19 18:00 05/05/19 18:00 05/05/19 18:00 - Laboratory Result Diagrams: 05/05/19 16:00 05/05/19 16:00 Laboratory results interpreted by me: 05/05/19 16:00 Potassium 5.1 H Chloride 109 H Glucose 147 H Alkaline Phosphatase 132 H - EKG Interpretation by Me Additional EKG results interpreted by me: EKG demonstrates sinus rhythm with a ventricular rate of 88 bpm, normal axis, normal intervals, no evidence of acute ischemia,'s compared to prior EKG without significant change from 2017. Discharge - Discharge Clinical Impression: Palpitations Condition: Stable Disposition: HOME, SELF-CARE Instructions: Palpitations (Irregular or Rapid Heartrate) ([facility]) Additional Instructions: Please follow-up with your primary care physician Dr. Cerda, call for an appointment tomorrow, scheduled for next week to be reevaluated, and encourage you to take your medication as directed, and try not to miss any doses. Referrals: SLOANE CERDA MD [Primary Care Provider] - Follow up in 3-5 days
[2019-05-05 18:05] VITALS: BP 168/78
--- NOTE | 2019-05-05 22:17 | EKG REPORT ---
SEVERITY:- NORMAL ECG - SINUS RHYTHM : Confirmed by: Brent Pack MD 05-May-2019 22:15:50
== END 2019-05-05 18:00 | disposition home or self-care (01) ==
LOC: ER 15:05
DX: R00.2 Palpitations (principal); J44.9 Chronic obstructive pulmonary disease, unspecified; I10 Essential (primary) hypertension; E11.9 Type 2 diabetes mellitus without complications; F17.210 Nicotine dependence, cigarettes, uncomplicated; Z91.14 Patient's other noncompliance with medication regimen
CPT/HCPCS: 36415; 71045; 80053; 82550; 82553; 84443; 84484; 85025; 93005; 93010; 99285

== ENCOUNTER → 2019-08-14 | Outpatient (CLI) | payer MEDICARE, OTHER ==
[2019-08-14 10:12] LABS: ALBUMIN 3.9 g/dL (3.5-5.0); ALKALINE PHOSPHATASE 121 U/L (38-126); ANION GAP 9 (5-19); ASPARTATE AMINO TRANSFERASE 22 U/L (14-36); BILIRUBIN,TOTAL 0.7 mg/dL (0.2-1.3); BLOOD UREA NITROGEN 13 mg/dL (7-20); CALCIUM 9.1 mg/dL (8.4-10.2); CARBON DIOXIDE 24 mmol/L (22-30); CHLORIDE 106 mmol/L (98-107); CHOLESTEROL 147.66 mg/dL (0-200); GLUCOSE 170 mg/dL (75-110); POTASSIUM 4.5 mmol/L (3.6-5.0); TOTAL PROTEIN 6.8 g/dL (6.3-8.2); TRIGLYCERIDES 110 mg/dL (<150)
[2019-08-14 10:23] LABS: DIRECT LDL 68 mg/dL (<100)
[2019-08-15 10:36] LABS: CREATININE URINE 138.1 mg/dL (Not Estab.); MICROALBUMIN URINE 14.7 ug/mL (Not Estab.)
== END ==
LOC: OD 08:28
PROVIDERS: ATTEND Family Medicine
DX: E11.9 Type 2 diabetes mellitus without complications (principal); E55.9 Vitamin D deficiency, unspecified; E78.5 Hyperlipidemia, unspecified; I10 Essential (primary) hypertension
CPT/HCPCS: 36415; 80053; 80061; 82043; 82306; 82570; 83036; 84443

== ENCOUNTER → 2019-10-10 | Outpatient (CLI) | payer MEDICARE, OTHER ==
--- NOTE | 2019-10-10 13:39 | RADIOLOGY REPORT (SQ) ---
EXAM DESCRIPTION: SHOULDER RIGHT 2 OR MORE VIEWS COMPLETED DATE/TIME: 10/10/2019 1:26 pm REASON FOR STUDY: PAIN IN RIGHT SHOULDER M25.511 PAIN IN RIGHT SHOULDER COMPARISON: 09/14/2015 NUMBER OF VIEWS: Three views. TECHNIQUE: Internal rotation, external rotation, and Y view images acquired of the right shoulder. LIMITATIONS: None. FINDINGS: MINERALIZATION: Normal. BONES: Old nonunited clavicular fracture. No acute fracture or dislocation. GLENOHUMERAL JOINT: No significant findings. ACROMIOCLAVICULAR JOINT: No large osteophytes. SOFT TISSUES: No calcifications. VISUALIZED RIBS, SPINE, AND LUNG: No other significant finding. OTHER: No other significant finding. IMPRESSION: Old clavicular fracture. No acute finding. TECHNICAL DOCUMENTATION: JOB ID: [id number] [email or web address]- All Rights Reserved Reading location - IP/workstation name: [email or web address]
== END ==
LOC: OD 13:10
PROVIDERS: ATTEND Family Medicine
DX: M25.511 Pain in right shoulder (principal); Z87.81 Personal history of (healed) traumatic fracture

== ENCOUNTER → 2020-03-13 | Outpatient (CLI) | payer MEDICARE, OTHER ==
[2020-03-13 09:17] LABS: ABSOLUTE BASOPHILS # (AUTO) 0.1 10^3/uL (0.0-0.2); ABSOLUTE EOSINOPHILS # (AUTO) 0.2 10^3/uL (0.0-0.6); ABSOLUTE LYMPHOCYTES (AUTO) 2.4 10^3/uL (0.5-4.7); ABSOLUTE MONOCYTES (AUTO) 0.4 10^3/uL (0.1-1.4); ABSOLUTE NEUT (AUTO) 3.6 10^3/uL (1.7-8.2); BASOPHILS % (AUTO) 1.1 % (0-2); EOSINOPHILS % (AUTO) 3.6 % (0-6); HEMATOCRIT 41.6 % (36.0-47.0); HEMOGLOBIN 14.1 g/dL (12.0-15.5); LYMPHOCYTES % (AUTO) 35.3 % (13-45); MEAN CORPUSCULAR HEMOGLOBIN 30.4 pg (27.0-33.4); MEAN CORPUSCULAR HGB CONC 33.9 g/dL (32.0-36.0); MEAN CORPUSCULAR VOLUME 90 fl (80-97); MONOCYTES % (AUTO) 6.6 % (3-13); PLATELET COUNT 204 10^3/uL (150-450); RED BLOOD COUNT 4.64 10^6/uL (3.72-5.28); RED CELL DISTRIBUTION WIDTH 13.7 % (11.5-14.0); SEGMENTED NEUTROPHILS % (AUTO) 53.4 % (42-78); TOTAL CELLS COUNTED % (AUTO) 100 %; WHITE BLOOD COUNT 6.8 10^3/uL (4.0-10.5)
[2020-03-13 09:37] LABS: ALBUMIN 3.9 g/dL (3.5-5.0); ALKALINE PHOSPHATASE 153 U/L (38-126); ANION GAP 6 (5-19); ASPARTATE AMINO TRANSFERASE 22 U/L (14-36); BILIRUBIN,TOTAL 0.6 mg/dL (0.2-1.3); BLOOD UREA NITROGEN 15 mg/dL (7-20); CALCIUM 9.3 mg/dL (8.4-10.2); CARBON DIOXIDE 26 mmol/L (22-30); CHLORIDE 104 mmol/L (98-107); CHOLESTEROL 148.52 mg/dL (0-200); GLUCOSE 267 mg/dL (75-110); POTASSIUM 5.4 mmol/L (3.6-5.0); TOTAL PROTEIN 6.8 g/dL (6.3-8.2); TRIGLYCERIDES 87 mg/dL (<150)
[2020-03-13 10:12] LABS: DIRECT LDL 52 mg/dL (<100)
[2020-03-14 07:37] LABS: MICROALBUMIN URINE 34.9 ug/mL (Not Estab.)
== END ==
LOC: OD 08:21
PROVIDERS: ATTEND Family Medicine
DX: E11.9 Type 2 diabetes mellitus without complications (principal); I10 Essential (primary) hypertension; E55.9 Vitamin D deficiency, unspecified; E78.5 Hyperlipidemia, unspecified; Z79.899 Other long term (current) drug therapy
CPT/HCPCS: 36415; 80053; 80061; 82043; 82306; 82570; 83036; 84443; 85025

== ENCOUNTER → 2020-06-11 | Outpatient (CLI) | payer MEDICARE, OTHER ==
[2020-06-11 09:40] LABS: ANION GAP 6 (5-19); BLOOD UREA NITROGEN 14 mg/dL (7-20); CALCIUM 8.9 mg/dL (8.4-10.2); CARBON DIOXIDE 26 mmol/L (22-30); CHLORIDE 105 mmol/L (98-107); GLUCOSE 254 mg/dL (75-110); POTASSIUM 4.9 mmol/L (3.6-5.0)
== END ==
LOC: OD 08:10
PROVIDERS: ATTEND Family Medicine
DX: E11.9 Type 2 diabetes mellitus without complications (principal)
CPT/HCPCS: 36415; 80048; 83036

== ENCOUNTER 2020-07-05 03:24 | Emergency (ER) | payer MEDICARE, OTHER ==
[2020-07-05] MEDS ORDERED: OXYCODONE-ACETAMINOPHEN 5-325 MG TABLET PO ONE (04:13)
[2020-07-05] MEDS ORDERED: ONDANSETRON 4 MG TAB.RAPDIS PO ONE (04:13)
--- NOTE | 2020-07-05 04:15 | ER Document Report ---
ED General - General Chief Complaint: Low Back Pain Stated Complaint: LOWER BACK,LEFT HIP PAIN Time Seen by Provider: 07/05/20 04:13 Primary Care Provider: SLOANE CERDA MD [Primary Care Provider] - 07/08/20 Notes: Patient is an 85-year-old female who comes emergency department for chief complaint of left flank pain. She states that pain is severe, she states that she cannot get comfortable. She denies abdominal pain, injury, fever/chills, dysuria, numbness, incontinence. She does state that approximately 2 to 3 days ago she was cleaning up in the lawn and did assist moving some furniture but she denies significant strain or feeling pain at that time. She states she started hurting yesterday and states that she had no appetite since yesterday as well. She does report a history of compression fractures in her back, she is not on pain management, she denies back surgery. She is not on a blood thinner. Past medical history of type 2 diabetes, hypertension, hyperlipidemia. She lives at home with her family. TRAVEL OUTSIDE OF THE [place] IN LAST 30 DAYS: No - Related Data Allergies/Adverse Reactions: No Known Drug Allergies Allergy (Verified 09/21/15 18:54) Home Medications: metoprolol, lipitor, baby asa, janument Past Medical History - General Information source: Patient - Social History Smoking Status: Never Smoker Frequency of alcohol use: None Drug Abuse: None Lives with: Family Family History: DM, Hypertension Patient has homicidal ideation: No - Past Medical History Cardiac Medical History: Reports: Hx Hypercholesterolemia, Hx Hypertension Denies: Hx Coronary Artery Disease Endocrine Medical History: Reports: Hx Diabetes Mellitus Type 2 Renal/ Medical History: Denies: Hx Peritoneal Dialysis - Immunizations Immunizations up to date: Yes Hx Diphtheria, Pertussis, Tetanus Vaccination: Yes Review of Systems - Review of Systems Constitutional: No symptoms reported EENT: No symptoms reported Cardiovascular: No symptoms reported Respiratory: No symptoms reported Gastrointestinal: No symptoms reported Genitourinary: See HPI Female Genitourinary: No symptoms reported Musculoskeletal: See HPI Skin: No symptoms reported Hematologic/Lymphatic: No symptoms reported Neurological/Psychological: No symptoms reported Physical Exam - Vital signs Vitals: Temp Pulse Resp BP Pulse Ox 98.1 F 88 14 164/81 H 96 07/05/20 03:34 07/05/20 03:34 07/05/20 03:34 07/05/20 03:34 07/05/20 03:34 - Notes Notes: GENERAL: Alert and interactive, youthful in appearance, however patient is crying and restless HEAD: Normocephalic, atraumatic. EYES: Pupils equal, round, and reactive to light. Extraocular movements intact. ENT: Oral mucosa moist, tongue midline. Oropharynx unremarkable. Airway patent. NECK: Full range of motion. Supple. Trachea midline. No lymphadenopathy. LUNGS: Clear to auscultation bilaterally, no wheezes, rales, or rhonchi. No respiratory distress. Non-tender chest wall. HEART: Regular rate and rhythm. No murmur ABDOMEN: Soft, non-tender. Non-distended. EXTREMITIES: Moves all 4 extremities spontaneously. No edema, normal radial and dorsalis pedis pulses bilaterally. No cyanosis. BACK: There does appear to be pain along the left paralumbar musculature extending down towards the buttocks. Patient is able to ambulate. No midline tenderness, no saddle anesthesia, no signs of trauma. Normal upper and lower extremity range of motion, normal strength, normal distal neurovascular exam. NEUROLOGICAL: Alert and oriented x3. Normal speech. Cranial nerves II through XII grossly intact. Strength 5/5 in all extremities. PSYCH: Crying and restless SKIN: Warm, dry, normal turgor. No rashes or lesions noted. Course - Re-evaluation Re-evalutation: Patient did not have a specific injury although I do suspect she overdid it with her physical activity on Wednesday. She does have palpable back pain, however she is so uncomfortable, tearful, and restless that I became concerned and decided to perform additional work-up especially based on her advanced age. CT of the abdomen and pelvis along with CT of the back showing no acute findings. CBC, chemistry unremarkable. On reevaluation after pain medication patient is calm, relaxed, very grateful. I have a stronger suspicion that this is muscular strain, patient will be treated with patches, Tylenol, patient is requesting something stronger for pain because of her discomfort tonight, she will be given just a few with specific precautions. Urinalysis is pending and will help determine disposition as well, however I did discuss in detail the work-up, expectations, follow-up, and return precautions. Patient states appreciation and agreement. - Vital Signs Vital signs: Temp Pulse Resp BP Pulse Ox 98.1 F 88 14 164/81 H 96 07/05/20 03:34 07/05/20 03:34 07/05/20 03:34 07/05/20 03:34 07/05/20 03:34 - Laboratory Result Diagrams: 07/05/20 04:37 07/05/20 04:37 Laboratory results interpreted by me: 07/05/20 07/05/20 04:37 07:37 Sodium 133.2 L Glucose 178 H Urine Ketones 20 H Urine Blood SMALL H Discharge - Discharge Clinical Impression: Lower back pain Qualifiers: Chronicity: acute Back pain laterality: left Sciatica presence: without sciatica Qualified Code(s): M54.5 - Low back pain Condition: Stable Disposition: HOME, SELF-CARE Instructions: Oral Narcotic Medication ([facility]) Additional Instructions: Your CAT scan, laboratory work-up, and urine did not show any concerning finding s. Based on your exam and your work-up I suspect this is muscular strain and muscular spasm. I recommend heat to the area, rest, avoid lifting or twisting, you can also apply the patch for pain, take Tylenol for pain. Symptoms should slowly resolve. You have been provided with both a stronger pain medication and a stool softener to take only if needed for severe pain, use with the precautions listed. Follow close with your primary care provider. Return if you worsen including severe worsening pain, developing numbness, fever, vomiting, or any other concerning or worsening symptoms. Prescriptions: Lidocaine [Lidoderm 5% (700 mg) Transdermal Patch] 1 patch TP DAILY #30 adh..patch Polyethylene Glycol 3350 [Miralax Powder 17 gm/Packet] 1 packet PO DAILY PRN #1 pkg PRN Reason: Oxycodone HCl [Oxy-Ir 5 mg Tablet] 0.5 - 1 tab PO TID PRN #5 tab PRN Reason: Referrals: SLOANE CERDA MD [Primary Care Provider] - 07/08/20
[2020-07-05 04:54] LABS: ABSOLUTE BASOPHILS # (AUTO) 0.1 10^3/uL (0.0-0.2); ABSOLUTE EOSINOPHILS # (AUTO) 0.1 10^3/uL (0.0-0.6); ABSOLUTE LYMPHOCYTES (AUTO) 1.5 10^3/uL (0.5-4.7); ABSOLUTE MONOCYTES (AUTO) 0.7 10^3/uL (0.1-1.4); ABSOLUTE NEUT (AUTO) 6.9 10^3/uL (1.7-8.2); BASOPHILS % (AUTO) 0.8 % (0-2); EOSINOPHILS % (AUTO) 1.3 % (0-6); HEMATOCRIT 40.2 % (36.0-47.0); HEMOGLOBIN 13.5 g/dL (12.0-15.5); LYMPHOCYTES % (AUTO) 16.5 % (13-45); MEAN CORPUSCULAR HEMOGLOBIN 30.1 pg (27.0-33.4); MEAN CORPUSCULAR HGB CONC 33.7 g/dL (32.0-36.0); MEAN CORPUSCULAR VOLUME 89 fl (80-97); MONOCYTES % (AUTO) 7.8 % (3-13); PLATELET COUNT 200 10^3/uL (150-450); RED CELL DISTRIBUTION WIDTH 13.8 % (11.5-14.0); SEGMENTED NEUTROPHILS % (AUTO) 73.6 % (42-78); TOTAL CELLS COUNTED % (AUTO) 100 %; WHITE BLOOD COUNT 9.3 10^3/uL (4.0-10.5)
[2020-07-05 05:03] LABS: ALBUMIN 3.9 g/dL (3.5-5.0); ALKALINE PHOSPHATASE 106 U/L (38-126); ANION GAP 8 (5-19); ASPARTATE AMINO TRANSFERASE 20 U/L (14-36); BILIRUBIN,TOTAL 1.1 mg/dL (0.2-1.3); BLOOD UREA NITROGEN 11 mg/dL (7-20); CALCIUM 8.9 mg/dL (8.4-10.2); CARBON DIOXIDE 22 mmol/L (22-30); CHLORIDE 103 mmol/L (98-107); GLUCOSE 178 mg/dL (75-110); POTASSIUM 4.4 mmol/L (3.6-5.0)
--- NOTE | 2020-07-05 05:13 | RADIOLOGY REPORT (SQ) ---
CLINICAL HISTORY: left flank pain, pain in lower back going to left hip. COMPARISON: None. TECHNIQUE: CT ABDOMEN PELVIS WITHOUT IV CONTRAST on 07/05/2020 4:13 AM CDT This exam was performed according to our departmental dose-optimization program, which includes automated exposure control, adjustment of the mA and/or kV according to patient size and/or use of iterative reconstruction technique. FINDINGS: Lower lungs are clear. Abdomen: The liver is normal in appearance. There is no biliary dilatation. Gallbladder is normal in appearance. There is a small hiatal hernia. The pancreas and spleen are normal in appearance. Adrenal glands are normal. There is a small upper pole right renal cyst. Abdominal aorta is densely calcified without aneurysm. Abdominal aorta is densely calcified without aneurysm. There is no free air. There is no retroperitoneal adenopathy. Pelvis: There is moderate diverticulosis of the distal colon. Urinary bladder is unremarkable. There is no free fluid. Uterus is small in size. Appendix is normal. Left ovarian cyst measures 3.2 cm. Skeleton: There are no acute osseous findings. No suspicious bony lesions. IMPRESSION: No definite acute process. No renal or ureteral calculi.
[2020-07-05 08:06] LABS: APPEARANCE,URINE CLEAR; BILIRUBIN,URINE NEGATIVE (NEGATIVE); COLOR,URINE STRAW; GLUCOSE, URINE NEGATIVE (NEGATIVE); KETONES,URINE 20 mg/dL (NEGATIVE); LEUKOCYTE ESTERASE,URINE NEGATIVE (NEGATIVE); NITRITE,URINE NEGATIVE (NEGATIVE); PROTEIN,URINE NEGATIVE (NEGATIVE); URINE SPECIFIC GRAVITY 1.004; UROBILINOGEN,URINE NEGATIVE mg/dL (<2.0)
[2020-07-05 08:35] VITALS: BP 144/66
== END 2020-07-05 08:47 | disposition home or self-care (01) ==
LOC: ER 03:24
DX: M54.5 Low back pain (principal); R10.9 Unspecified abdominal pain; R63.0 Anorexia; E11.9 Type 2 diabetes mellitus without complications; I10 Essential (primary) hypertension; E78.5 Hyperlipidemia, unspecified; E78.00 Pure hypercholesterolemia, unspecified; Z79.899 Other long term (current) drug therapy; Z79.82 Long term (current) use of aspirin; Z79.84 Long term (current) use of oral hypoglycemic drugs
CPT/HCPCS: 99284; 36415; 83690; 85025; 80053; 81001; 74176; A9270 ×2; S0119

== ENCOUNTER 2020-07-06 12:05 | Emergency (ER) | payer MEDICARE ==
[2020-07-06] MEDS ORDERED: NORMAL SALINE 500 ML IV ONE (12:55)
[2020-07-06] MEDS ORDERED: HYDROMORPHONE HCL INJ/PF 2 MG/ML AMPULE IV ONE (12:55)
[2020-07-06] MEDS ORDERED: ONDANSETRON HCL INJ/PF 4 MG/2 ML SDV IV ONE (12:56)
--- NOTE | 2020-07-06 14:22 | RADIOLOGY REPORT (SQ) ---
EXAM DESCRIPTION: CT LUMBAR SPINE WITHOUT IMAGES COMPLETED DATE/TIME: 07/06/2020 2:03 pm REASON FOR STUDY: low back pain COMPARISON: None. TECHNIQUE: Axial images acquired through the lumbar spine without intravenous contrast. Images revi ewed with lung, soft tissue and bone windows. Reconstructed coronal and sagittal MPR images reviewed . All images stored on PACS. All CT scanners at this facility use dose modulation, iterative reconstruction, and/or weight based d osing when appropriate to reduce radiation dose to as low as reasonably achievable (ALARA). [facility]: Dose Right [facility]: CareDose [facility]: Dose Right [facility]: Teradose 4D [facility]: Smart [employer] RADIATION DOSE: mGy. LIMITATIONS: None. FINDINGS: Bones are osteopenic. Vacuum disc and Schmorl's node formation L3-4. Facet arthropathy e specially lower lumbar spine. No sacral fracture identified. No paraspinal hematoma. IMPRESSION: No acute findings. TECHNICAL DOCUMENTATION: JOB ID: [id number] Quality ID # [id number]: Final reports with documentation of one or more dose reduction techniques (e.g., Au tomated exposure control, adjustment of the mA and/or kV according to patient size, use of iterative reconstruction technique) 2010 [employer]- All Rights Reserved Reading location - IP/workstation name: [email or web address]
--- NOTE | 2020-07-06 14:29 | RADIOLOGY REPORT (SQ) ---
EXAM DESCRIPTION: CT PELVIS WITHOUT IMAGES COMPLETED DATE/TIME: 07/06/2020 2:04 pm REASON FOR STUDY: pain left pepvis COMPARISON: None. TECHNIQUE: CT scan of the pelvis performed without intravenous or oral contrast. Images reviewed wi th soft tissue and bone windows. Reconstructed coronal and sagittal MPR images reviewed. All images stored on PACS. All CT scanners at this facility use dose modulation, iterative reconstruction, and/or weight based d osing when appropriate to reduce radiation dose to as low as reasonably achievable (ALARA). [facility]: Dose Right [facility]: CareDose [facility]: Dose Right [facility]: Teradose 4D [facility]: Smart [employer] RADIATION DOSE: CT Rad equipment meets quality standard of care and radiation dose reduction techniq ues were employed. CTDIvol: 5.9 mGy. DLP: 213 mGy-cm. mGy. LIMITATIONS: None. FINDINGS: PELVIC BONES: No acute fracture. No worrisome bone lesions. VISUALIZED SPINE: See separate report same date. HIP(S): No acute fracture or dislocation. No worrisome bone lesions. PELVIC SOFT TISSUES: Diverticulosis. No evidence of diverticulitis. EXTRAPELVIC SOFT TISSUES: No significant findings. OTHER: No other significant finding. IMPRESSION: No acute findings. TECHNICAL DOCUMENTATION: JOB ID: [id number] Quality ID # [id number]: Final reports with documentation of one or more dose reduction techniques (e.g., Au tomated exposure control, adjustment of the mA and/or kV according to patient size, use of iterative reconstruction technique) 2010 [employer]- All Rights Reserved Reading location - IP/workstation name: [email or web address]
[2020-07-06 15:39] LABS: URINE AMPHETAMINES SCREEN NEGATIVE; URINE BARBITURATES SCREEN NEGATIVE; URINE BENZODIAZEPINES SCREEN NEGATIVE; URINE COCAINE SCREEN NEGATIVE; URINE MARIJUANA (THC) SCREEN NEGATIVE; URINE METHADONE SCREEN NEGATIVE; URINE PHENCYCLIDINE SCREEN NEGATIVE
[2020-07-06 15:42] LABS: APPEARANCE,URINE CLEAR; BILIRUBIN,URINE NEGATIVE (NEGATIVE); COLOR,URINE YELLOW; GLUCOSE, URINE 50 mg/dL (NEGATIVE); KETONES,URINE 20 mg/dL (NEGATIVE); LEUKOCYTE ESTERASE,URINE MODERATE (NEGATIVE); NITRITE,URINE NEGATIVE (NEGATIVE); PROTEIN,URINE NEGATIVE (NEGATIVE); URINE SPECIFIC GRAVITY 1.021; UROBILINOGEN,URINE NEGATIVE mg/dL (<2.0)
[2020-07-06 17:52] VITALS: BP 135/80
[2020-07-06] MEDS ORDERED: LORAZEPAM INJ 2 MG/1 ML VIAL IV ONE (17:53)
[2020-07-06] MEDS ORDERED: KETOROLAC TROMETHAMINE INJ/PF 30 MG/1 ML SDV IV ONE (18:01)
[2020-07-06] MEDS ORDERED: NITROFURANTOIN MONOHYD/M-CRYST 100 MG CAPSULE PO ONE (18:07)
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
== END 2020-07-06 18:44 | disposition home or self-care (01) ==
LOC: ER 12:05
DX: M54.5 Low back pain (principal); M62.830 Muscle spasm of back; N39.0 Urinary tract infection, site not specified; R10.2 Pelvic and perineal pain; E78.00 Pure hypercholesterolemia, unspecified; I10 Essential (primary) hypertension; E11.9 Type 2 diabetes mellitus without complications
CPT/HCPCS: 99284; 96361; 96374; 96375; 87086; 81001; 80307; 72131; 72192; J1885; J1170; J2060; J2405; J7040; A9270; J8499

== ENCOUNTER 2020-07-07 13:27 | Emergency (ER) | payer MEDICARE ==
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
[2020-07-07 15:01] LABS: ABSOLUTE BASOPHILS # (AUTO) 0.1 10^3/uL (0.0-0.2); ABSOLUTE EOSINOPHILS # (AUTO) 0.1 10^3/uL (0.0-0.6); ABSOLUTE LYMPHOCYTES (AUTO) 1.3 10^3/uL (0.5-4.7); ABSOLUTE MONOCYTES (AUTO) 0.8 10^3/uL (0.1-1.4); ABSOLUTE NEUT (AUTO) 9.5 10^3/uL (1.7-8.2); BASOPHILS % (AUTO) 0.5 % (0-2); HEMATOCRIT 40.8 % (36.0-47.0); HEMOGLOBIN 13.6 g/dL (12.0-15.5); LYMPHOCYTES % (AUTO) 11.2 % (13-45); MEAN CORPUSCULAR HEMOGLOBIN 29.7 pg (27.0-33.4); MEAN CORPUSCULAR HGB CONC 33.4 g/dL (32.0-36.0); MEAN CORPUSCULAR VOLUME 89 fl (80-97); MONOCYTES % (AUTO) 6.9 % (3-13); PLATELET COUNT 197 10^3/uL (150-450); RED BLOOD COUNT 4.59 10^6/uL (3.72-5.28); RED CELL DISTRIBUTION WIDTH 13.7 % (11.5-14.0); SEGMENTED NEUTROPHILS % (AUTO) 80.4 % (42-78); TOTAL CELLS COUNTED % (AUTO) 100 %; WHITE BLOOD COUNT 11.8 10^3/uL (4.0-10.5)
[2020-07-07 15:10] LABS: APPEARANCE,URINE CLEAR; BILIRUBIN,URINE NEGATIVE (NEGATIVE); COLOR,URINE YELLOW; GLUCOSE, URINE NEGATIVE (NEGATIVE); KETONES,URINE 20 mg/dL (NEGATIVE); LEUKOCYTE ESTERASE,URINE MODERATE (NEGATIVE); NITRITE,URINE NEGATIVE (NEGATIVE); PROTEIN,URINE 30 mg/dL (NEGATIVE); URINE SPECIFIC GRAVITY 1.023; UROBILINOGEN,URINE NEGATIVE mg/dL (<2.0)
[2020-07-07 15:20] LABS: ALBUMIN 3.8 g/dL (3.5-5.0); ALKALINE PHOSPHATASE 101 U/L (38-126); ANION GAP 10 (5-19); ASPARTATE AMINO TRANSFERASE 23 U/L (14-36); BILIRUBIN,TOTAL 1.1 mg/dL (0.2-1.3); BLOOD UREA NITROGEN 22 mg/dL (7-20); CARBON DIOXIDE 20 mmol/L (22-30); CHLORIDE 104 mmol/L (98-107); GLUCOSE 153 mg/dL (75-110); POTASSIUM 4.3 mmol/L (3.6-5.0); TOTAL PROTEIN 6.9 g/dL (6.3-8.2)
--- NOTE | 2020-07-07 16:37 | ER Document Report ---
ED General - General Chief Complaint: Low Back Pain Stated Complaint: LOWER BACK PAIN Time Seen by Provider: 07/07/20 14:27 Primary Care Provider: SLOANE CERDA MD [Primary Care Provider] - Follow up as needed Mode of Arrival: Wheelchair Notes: Patient is an 85-year-old white female with a recent history of acute low back pain who returns to the emergency department here for her third visit. She was seen here twice over the past 2 days for the same. She states the first visit she was given oxycodone which did not help the pain but made her sleepy. She states she returned had another evaluation and was given a prescription for tramadol. She states that her son took the prescription to the pharmacy and filled it but she has not yet tried it. She states she took a baclofen this morning and she was not sure if she could take the tramadol with the baclofen so she abstained. She states that the pain continues to persist in the same severity that it was. She reports the only thing that helped her yesterday was the IV medications they gave prior to discharge which was Toradol and Ativan. She states that allow her to move and get up and walk about a bit but made her very sleepy, she went home went to bed and woke up this morning and pain again. She denies any new injury, fall or trauma. Denies any urinary or bowel incontinence or retention. Denies any saddle anesthesia. Denies any numbness, tingling or weakness. TRAVEL OUTSIDE OF THE [place] IN LAST 30 DAYS: No - Related Data Allergies/Adverse Reactions: No Known Drug Allergies Allergy (Verified 09/21/15 18:54) Past Medical History - General Information source: Patient - Social History Smoking Status: Never Smoker Frequency of alcohol use: Occasional Drug Abuse: None Family History: DM, Hypertension - Past Medical History Cardiac Medical History: Reports: Hx Hypercholesterolemia, Hx Hypertension Denies: Hx Coronary Artery Disease Endocrine Medical History: Reports: Hx Diabetes Mellitus Type 2 Renal/ Medical History: Denies: Hx Peritoneal Dialysis - Immunizations Immunizations up to date: Yes Hx Diphtheria, Pertussis, Tetanus Vaccination: Yes Review of Systems - Review of Systems Constitutional: denies: Fever EENT: denies: Throat pain Cardiovascular: denies: Chest pain Respiratory: denies: Short of breath Gastrointestinal: denies: Abdominal pain Genitourinary: denies: Incontinence Female Genitourinary: denies: Vaginal discharge Musculoskeletal: Back pain Skin: denies: Change in color Hematologic/Lymphatic: denies: Easy bleeding Neurological/Psychological: denies: Loss of power, Numbness, Tingling Physical Exam - Vital signs Vitals: Temp Pulse Resp BP Pulse Ox 98.6 F 79 18 120/67 97 07/07/20 13:49 07/07/20 13:49 07/07/20 13:49 07/07/20 13:49 07/07/20 13:49 - General General appearance: Alert In distress: None - Respiratory Respiratory status: No respiratory distress Chest status: Nontender Breath sounds: Normal Chest palpation: Normal - Cardiovascular Rhythm: Regular Heart sounds: Normal auscultation - Abdominal Inspection: Normal Distension: No distension Bowel sounds: Normal Tenderness: Nontender Organomegaly: No organomegaly - Back Back: Normal, Nontender. No: Deformity/step-off, CVA tenderness, Vertebra tenderness Notes: Lower extremity strength 5 out of 5 bilaterally. Patient able to elevate great toes bilaterally. 2+ DP/PT bilaterally. 2+ DTR prepatellar bilaterally. - Extremities General upper extremity: Normal inspection, Nontender, Normal color, Normal ROM, Normal temperature General lower extremity: Normal inspection, Nontender, Normal color, Normal ROM, Normal temperature, Normal weight bearing. No: Nelly's sign - Neurological Neuro grossly intact: Yes Cognition: Normal Orientation: AAOx4 [place] Coma Scale Verbal: Oriented Arlin Coma Scale Motor: Obeys Commands Speech: Normal Motor strength normal: LUE, RUE, LLE, RLE Additional motor exam normals: No: Weakness Sensory: Normal - Psychological Associated symptoms: Normal affect, Normal mood - Skin Skin Temperature: Warm Skin Moisture: Dry Skin Color: Normal Course - Re-evaluation Re-evalutation: 07/07/20 16:38 Patient with a relatively normal exam. She cries and is tearful and pain regarding the pain that she feels herself. She is nontender. She is got a great neurological exam and a great musculoskeletal exam without evidence of any acute abnormality other than her subjective cries out for pain with movement. She reports that the Ativan helped the most which is consistent with her recent suspicions here of muscular strain and spasm. Discussed with the patient today after my evaluation and review of the previous records and imaging studies that the neck step in management would be to obtain an MRI of her lumbar spine. She very adamantly stated that she did not wish to stay here. She states that she would rather go home and try her tramadol than stay here and undergo any further testing. I discussed with her that I was concerned that her pain seemed out of proportion to her exam and her suspicions and was therefore concern for further underlying pathology that may need to be identified with a more sensitive study such as an MRI. She was still very adamant that she did not wish to undergo MRI or stay here for any further testing or care. She stated that she has her son who will pick her up she will take her tramadol and try that medication. She is of sound mind and mental capacity to make informed decision. She is aware that she is free to return here at any time to continue her care. I advised strongly that she follow-up with her regular doctor as soon as possible for reevaluation and continued care and management. I advised that she return here or any ER immediately with any new, persistent or worsening symptoms. She verbalized understood and agreed. 07/07/20 16:43 07/07/20 16:45 - Vital Signs Vital signs: Temp Pulse Resp BP Pulse Ox 98.6 F 79 18 120/67 97 07/07/20 13:49 07/07/20 13:49 07/07/20 13:49 07/07/20 13:49 07/07/20 13:49 - Laboratory Result Diagrams: 07/07/20 14:40 07/07/20 14:40 Laboratory results interpreted by me: 07/07/20 07/07/20 07/07/20 14:40 14:40 14:40 WBC 11.8 H Lymph % (Auto) 11.2 L Absolute Neuts (auto) 9.5 H Seg Neutrophils % 80.4 H Sodium 133.6 L Carbon Dioxide 20 L BUN 22 H Glucose 153 H Urine Protein 30 H Urine Ketones 20 H Urine Blood SMALL H Ur Leukocyte Esterase MODERATE H Discharge - Discharge Clinical Impression: Low back pain Qualifiers: Chronicity: unspecified Back pain laterality: unspecified Sciatica presence: without sciatica Qualified Code(s): M54.5 - Low back pain Condition: Stable Disposition: HOME, SELF-CARE Instructions: Low Back Pain ([facility]), Oral Narcotic Medication ([facility]) Additional Instructions: Follow-up with your regular doctor in 2 to 3 days for reevaluation. Return here or any ER immediately with any new, persistent or worsening symptoms. Referrals: SLOANE CERDA MD [Primary Care Provider] - Follow up as needed
[2020-07-07 17:39] VITALS: BP 128/64
== END 2020-07-07 17:39 | disposition home or self-care (01) ==
LOC: ER 13:27
DX: M54.5 Low back pain (principal); I10 Essential (primary) hypertension; E11.9 Type 2 diabetes mellitus without complications
CPT/HCPCS: 36415; 80053; 81001; 85025; 99283

== ENCOUNTER 2020-07-08 10:56 | Observation (INO) | payer MEDICARE, OTHER ==
[2020-07-08] MEDS ORDERED: MAGNESIUM HYDROXIDE SUSP 30 ML UDCUP PO PRN (11:49)
[2020-07-08] MEDS ORDERED: NORMAL SALINE 1000 ML 1,000 ML IV PRN (11:49)
[2020-07-08] MEDS ORDERED: TEMAZEPAM 15 MG CAPSULE PO PRN (11:49)
[2020-07-08] MEDS ORDERED: DEXTROSE 50%-WATER 25 GM/50 ML DISP.SYRIN IV PRN ×2 (11:59)
[2020-07-08] MEDS ORDERED: DEXTROSE 40% GEL 15 GM TUBE PO PRN ×2 (11:59)
[2020-07-08] MEDS ORDERED: GLUCAGON,HUMAN RECOMB 1 MG INJ IM PRN (11:59)
[2020-07-08] MEDS ORDERED: METOPROLOL TARTRATE PF/INJ 5 MG/5 ML SDV IV PRN (12:01)
[2020-07-08 12:03] LABS: HEMATOCRIT 37.6 % (36.0-47.0); HEMOGLOBIN 12.5 g/dL (12.0-15.5); MEAN CORPUSCULAR HEMOGLOBIN 29.7 pg (27.0-33.4); MEAN CORPUSCULAR HGB CONC 33.2 g/dL (32.0-36.0); MEAN CORPUSCULAR VOLUME 90 fl (80-97); PLATELET COUNT 195 10^3/uL (150-450); RED CELL DISTRIBUTION WIDTH 13.8 % (11.5-14.0); WHITE BLOOD COUNT 8.9 10^3/uL (4.0-10.5)
--- NOTE | 2020-07-08 12:14 | PDOC H&P ---
History of Present Illness Admission Date/PCP: 07/08/20 11:54 SLOANE CERDA MD Patient complains of: Intractable back pain History of Present Illness: MANNY RENTERIA is a 85 year old female who was in the emergency department daily for the last 3 days. She went to her primary care provider who contacted me for direct admission. She has diabetes mellitus and hypertension and has been having intractable back pain with an inability to walk. This has precluded eating regularly at home. Past Medical History Cardiac Medical History: Reports: Hyperlipidema, Hypertension Denies: Coronary Artery Disease Pulmonary Medical History: Reports: Other - Former smoker. Quit greater than 20 years ago. Neurological Medical History: Denies: Ischemic CVA, Migraine Endocrine Medical History: Reports: Diabetes Mellitus Type 2 Musculoskeltal Medical History: Reports: Other - Fractured right clavicle Hematology: Reports: Anemia Past Surgical History Past Surgical History: Reports: None Social History Information Source: Patient, [facility] Records Lives with: Alone Smoking Status: Former Smoker Electronic Cigarette use?: No Frequency of Alcohol Use: Occasional Hx Recreational Drug Use: No Hx Prescription Drug Abuse: No - Advance Directive Resuscitation Status: Do Not Resuscitate Family History Family History: CAD, CVA, DM, Hypertension, Malignancy Parental Family History Reviewed: Yes Children Family History Reviewed: Yes Sibling(s) Family History Reviewed.: Yes Medication/Allergy Home Medications: Aspirin [Adult Low Dose Aspirin EC] 81 mg PO DAILY 09/21/15 Atorvastatin Calcium [Lipitor 40 mg Tablet] 40 mg PO DAILY 09/21/15 Metoprolol Tartrate [Lopressor] 50 mg PO BID 09/21/15 [place]-3 Fatty Acids [[place]-3] 1,000 mg PO DAILY 09/21/15 Sitagliptin Phos/Metformin HCl [Janumet 50-1,000 Mg Tablet] 1 each PO DAILY 09/21/15 Lidocaine [Lidoderm 5% (700 mg) Transdermal Patch] 1 patch TP DAILY #30 adh..patch 07/05/20 Oxycodone HCl [Oxy-Ir 5 mg Tablet] 0.5 - 1 tab PO TID PRN #5 tab 07/05/20 Baclofen [Baclofen 10 mg Tablet] 10 mg PO BID #20 tab 07/06/20 Nitrofurantoin Monohyd/M-Cryst [Macrobid 100 mg Capsule] 100 mg PO BID #20 cap 08/08/20 Tramadol HCl [Ultram 50 mg Tablet] 50 mg PO Q4HP PRN #12 tab 07/06/20 Cholecalciferol (Vitamin D3) [Vitamin D3] 25 mcg PO DAILY 07/08/20 Fluticasone Propionate [Flonase Nasal [place] 50 Mcg/[place] 16 gm] 1 spray NASL DAILY 07/08/20 Allergies/Adverse Reactions: No Known Drug Allergies Allergy (Verified 07/08/20 12:01) Review of Systems All systems: reviewed and no additional remarkable complaints except as stated Constitutional: PRESENT: other - Decreased appetite last several days Musculoskeletal: PRESENT: back pain, other - Left hip pain Neurological: PRESENT: abnormal gait - Difficult to walk due to pain Psychiatric: PRESENT: other - Increased stress level over the last 3 to 4 days Physical Exam Vital Signs: Temp Pulse Resp BP Pulse Ox 98.3 F 74 18 144/67 H 94 07/08/20 11:01 07/08/20 11:01 07/08/20 11:01 07/08/20 11:01 07/08/20 11:01 Intake & Output 07/07/20 07/08/20 07/09/20 06:59 06:59 06:59 Weight 60.1 kg General appearance: PRESENT: cooperative, mild distress, well-developed Head exam: PRESENT: atraumatic, normocephalic Eye exam: PRESENT: conjunctiva pale. ABSENT: scleral icterus Ear exam: PRESENT: normal external ear exam. ABSENT: bleeding, drainage Mouth exam: PRESENT: moist, tongue midline Respiratory exam: PRESENT: clear to auscultation damien, symmetrical, unlabored. ABSENT: prolonged expiratory phas, rales, rhonchi, tachypnea, wheezes Cardiovascular exam: PRESENT: RRR, +S1, +S2, systolic murmur - 2/6. ABSENT: bradycardia, diastolic murmur, irregular rhythm, tachycardia GI/Abdominal exam: PRESENT: normal bowel sounds, soft. ABSENT: distended, mass, tenderness Rectal exam: PRESENT: deferred Gentrourinary exam: ABSENT: indwelling catheter Extremities exam: ABSENT: calf tenderness, pedal edema Musculoskeletal exam: PRESENT: normal inspection, other - Normal musculature. ABSENT: deformity, dislocation Neurological exam: PRESENT: alert, awake, oriented to person, oriented to place, oriented to time, oriented to situation, reflexes normal - Patella and bicep, CN II-XII grossly intact, other - The patient has good and symmetric strength 5/5 upper and lower extremities. She is able to resist pressure with leg elevated off the bed. She has excellent plantar flexion and dorsiflexion. No tenderness in her extremities. With straight leg raise of the left leg she had no compla ints of left hip pain. When she went to sit up she complained of excruciating pain. She rolled to the left which is the side that hurts her the most. She also complained of pain and tightness across her lower back.. ABSENT: altered, motor sensory deficit Psychiatric exam: ABSENT: agitated, anxious Focused psych exam: ABSENT: delusional, paranoid, restlessness Skin exam: PRESENT: dry, normal color, warm. ABSENT: cyanosis, erythema, rash Results Laboratory Results: 07/08/20 11:11 07/08/20 11:11 WBC 8.9 RBC 4.20 Hgb 12.5 Hct 37.6 MCV 90 MCH 29.7 MCHC 33.2 RDW 13.8 Plt Count 195 Assessment and Plan - Diagnosis (1) Intractable low back pain Is this a current diagnosis for this admission?: Yes Plan: The patient has been in the emergency department daily for the last 3 days prior to today. It seems that the most relief was achieved with Toradol. An MRI last year showed lumbar disc disease with bulging however she does not have any findings for radicular neuropathy or weakness from compromised nerve. This certainly could be sciatica. We will focus on anti-inflammatory therapy with muscle relaxants. I am also adding low-dose duloxetine to help with pain krystal gement especially if this is going to be a chronic intermittent phenomenon. (2) Urinary tract infection Qualifiers: Urinary tract infection type: acute cystitis Hematuria presence: without hematuria Qualified Code(s): N30.00 - Acute cystitis without hematuria Is this a current diagnosis for this admission?: Yes Plan: Urinalysis from yesterday's emergency department was leukocyte Estrace positive and revealed many white cells. She was started on Macrobid and I will continue this antibiotic. (3) Lumbar disc disease Is this a current diagnosis for this admission?: Yes Plan: History of lumbar disc disease. She does not appear to have a focal neurologic exam. This may be more sciatica. We will try conservative therapy first before repeating an MRI. This will include physical therapy. (4) Hyperglycemia due to diabetes mellitus Is this a current diagnosis for this admission?: Yes Plan: We will continue Januvia and metformin as well as controlled carbohydrate cardiac diet with Accu-Cheks and sliding scale coverage (5) Hypertension Qualifiers: Hypertension type: essential hypertension Qualified Code(s): I10 - Essential (primary) hypertension Is this a current diagnosis for this admission?: Yes Plan: Continue metoprolol at this time. Monitor vital signs. We will also continue her aspirin and statin therapy. (6) Hyperlipidemia Qualifiers: Hyperlipidemia type: unspecified Qualified Code(s): E78.5 - Hyperlipidemia, unspecified Is this a current diagnosis for this admission?: Yes Plan: Continue atorvastatin. She can return to her supplements including fish oil after discharge. We will continue her aspirin daily. (7) Iron deficiency anemia Qualifiers: Iron deficiency anemia type: unspecified iron deficiency Qualified Code(s): D50.9 - Iron deficiency anemia, unspecified Is this a current diagnosis for this admission?: Yes Plan: The patient is on ferrous sulfate every other day. As I anticipate a less than 2-day stay I have not ordered it at this time. - Time Time Spent with patient: 35 or more minutes Medications reviewed and adjusted accordingly: Yes Anticipated Discharge Disposition: Home with Home Health Anticipated Discharge Timeframe: within 24 hours
[2020-07-08 12:15] LABS: ALBUMIN 3.5 g/dL (3.5-5.0); ALKALINE PHOSPHATASE 90 U/L (38-126); ANION GAP 5 (5-19); ASPARTATE AMINO TRANSFERASE 21 U/L (14-36); BILIRUBIN,TOTAL 0.7 mg/dL (0.2-1.3); BLOOD UREA NITROGEN 18 mg/dL (7-20); CALCIUM 8.7 mg/dL (8.4-10.2); CARBON DIOXIDE 24 mmol/L (22-30); CHLORIDE 104 mmol/L (98-107); GLUCOSE 151 mg/dL (75-110); POTASSIUM 4.4 mmol/L (3.6-5.0); TOTAL PROTEIN 6.6 g/dL (6.3-8.2)
[2020-07-08 12:41] LABS: ERYTHROCYTE SEDIMENTATION RATE 41 mm/hr (0-30)
[2020-07-08] MEDS: KETOROLAC TROMETHAMINE INJ/PF 30 MG/1 ML SDV IV PRN (13:09)
[2020-07-08] MEDS: HEPARIN SOD (PORCINE) 5,000 UNIT/ML 1 ML VIAL SUBCUT SCH ×2 (14:20→22:41)
[2020-07-08] MEDS: NAPROXEN 375 MG TABLET PO SCH (17:21)
[2020-07-08] MEDS: INSULIN LISPRO 100 UNIT/ML 3 ML VIAL SUBCUT SCH ×2 (17:22→23:03)
[2020-07-08] MEDS ORDERED: NITROFURANTOIN MONOHYD/M-CRYST 100 MG CAPSULE PO SCH (18:00)
[2020-07-08] MEDS: NITROFURANTOIN MONOHYD/M-CRYST 100 MG CAPSULE PO SCH (19:37)
[2020-07-08] MEDS: ASPIRIN 81 MG TABLET, ENT COATED PO SCH (22:40)
[2020-07-08] MEDS: FAMOTIDINE 20 MG TABLET PO SCH (22:40)
[2020-07-08] MEDS: ATORVASTATIN CALCIUM 40 MG TABLET PO SCH (22:41)
[2020-07-09] MEDS: HEPARIN SOD (PORCINE) 5,000 UNIT/ML 1 ML VIAL SUBCUT SCH ×3 (06:18→22:04)
[2020-07-09] MEDS: NITROFURANTOIN MONOHYD/M-CRYST 100 MG CAPSULE PO SCH ×2 (06:18→18:36)
[2020-07-09] MEDS: KETOROLAC TROMETHAMINE INJ/PF 30 MG/1 ML SDV IV PRN ×2 (06:18→16:42)
[2020-07-09] MEDS: SITAGLIPTIN PHOSPHATE 50 MG TABLET PO SCH (09:46)
[2020-07-09] MEDS: NAPROXEN 375 MG TABLET PO SCH ×2 (09:46→16:41)
[2020-07-09] MEDS: FAMOTIDINE 20 MG TABLET PO SCH ×2 (09:46→22:04)
[2020-07-09] MEDS: METOPROLOL TARTRATE 50 MG TABLET PO SCH ×2 (09:47→22:04)
[2020-07-09] MEDS: METFORMIN HCL 500 MG TABLET PO SCH (09:47)
[2020-07-09] MEDS: INSULIN LISPRO 100 UNIT/ML 3 ML VIAL SUBCUT SCH ×4 (09:51→22:05)
[2020-07-09] MEDS ORDERED: METOPROLOL SUCCINATE 50 MG TAB.SR.24H PO SCH (10:00)
[2020-07-09] MEDS: DULOXETINE HCL 20 MG CAPSULE.DR PO SCH (10:46)
[2020-07-09] MEDS: BACLOFEN 10 MG TABLET PO PRN ×2 (13:21→18:29)
[2020-07-09] MEDS: ACETAMINOPHEN 325 MG TABLET PO PRN ×2 (13:21→18:28)
--- NOTE | 2020-07-09 19:11 | PSYCHOLOGICAL NOTE ---
Psych Note - Psych Note Date seen by psych provider: 07/09/20 Time seen by psych provider: 17:05 - Evaluation with patient from [id number]. Psych Note: Patient is an 85 year old female admitted to hospitalist services. A psychiatric consult was ordered due to suicidal ideation and statement made just before discharge. Patient was sitting in the reclining chair when this clinician knocked and then entered. She started moaning and groaning. When asked what was wrong she said "my back and hips." Asked her what she said at discharge about suicidal ideation. She commented "the thing is I shouldn't have said what I said, I had/have no intention to do anything, I stated I have some at home maybe I'll take those." She stated "I did/said a foolish thing." Patient denied previous suicide attempts. She denied current suicidal and homicidal ideation. When this clinician commented pain can make people do things they wouldn't normally do patient stated "I can guarantee you I am not going to do anything to myself or anyone else." She denied being on any psychiatric medications. Patient denied previous mental health hospitalizations. She denied being linked to pain management. Patient identified she has an appointment tomorrow (07/10/2020) with her Primary Care Physician. She was informed Primary Care can make a referral to pain management if they feel it is appropriate. Patient said she would mention it to her Primary Care doctor at tomorrow's appointment. When this clinician stated she would let medical know about patient's pain she stated "there's nothing they can do, I just got a pain killer." Patient reported she resides with her son. Patient was alert and oriented to self, person, place, time and situation. Mood was euthymic with congruent affect. She denied current suicidal and homicidal ideation, admitted to making comment about having some pain medications at home and maybe she'll take those, stated she said a foolish thing and does not have any intentions of doing anything to herself. Patient did not appear to be responding to internal stimuli as evidenced by fair eye contact and answering questions appropriately when addressed. Thought processes were linear and organized. Conversational speech was within normal limits for rate, tone and prosody. Intellectual abilities are estimated to be average. Insight, judgment and impulse control were fair as evidenced by being engaged and admitting what she said to include processing whys he said it (in pain). At 1711 tried calling son Cristhian Carmen ([phone]) listed as Emergency Contact. No answer. Went straight to voice mail. Left a message with call back information. Was just going to check in with him about mental health history and then if he had access to patient's medications have him lock them all up. Attending Nurse noted patient was on Cymbalta. Chart review revealed it is only 20MG daily. Attending Hospitalist noted they started it here at hospital. Clinical Presentation: Chronic Pain Seeking pain medication Suicidal ideation/comment made at discharge after being informed she would not be getting pain medication prescription Impression/Plan: Patient is cleared from acute psychiatric services. She denied current suicidal ideation, admitted to making a foolish statement, denied any intentions, denied previous suicidal ideation and attempts. She noted a Primary Care appointment tomorrow (07/10/2020) and was encouraged to request pain management referral which she said she would. This shows future/forward/goal oriented thinking. She denied suicidal ideation and intent 3 different times throughout the evaluation. Tried to include son in plan of care but no answer. Was going to have him obtain all medications in the home if he had access. Consulted with Dr. Dodge regarding the management and care of patient. Attending Hospitalist made aware of recommendations.
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
[2020-07-09] MEDS ORDERED: LIDOCAINE 5% (700 MG) TRANSDERMAL ADH..PATCH TP ONE (20:30)
[2020-07-09] MEDS: ASPIRIN 81 MG TABLET, ENT COATED PO SCH (22:04)
[2020-07-09] MEDS: ATORVASTATIN CALCIUM 40 MG TABLET PO SCH (22:04)
[2020-07-10] MEDS: HEPARIN SOD (PORCINE) 5,000 UNIT/ML 1 ML VIAL SUBCUT SCH (06:34)
[2020-07-10] MEDS: NITROFURANTOIN MONOHYD/M-CRYST 100 MG CAPSULE PO SCH (06:34)
[2020-07-10] MEDS: INSULIN LISPRO 100 UNIT/ML 3 ML VIAL SUBCUT SCH (09:20)
[2020-07-10] MEDS: NAPROXEN 375 MG TABLET PO SCH (09:28)
[2020-07-10] MEDS: METFORMIN HCL 500 MG TABLET PO SCH (09:28)
[2020-07-10] MEDS: FAMOTIDINE 20 MG TABLET PO SCH (09:29)
[2020-07-10] MEDS: DULOXETINE HCL 20 MG CAPSULE.DR PO SCH (09:29)
[2020-07-10] MEDS: SITAGLIPTIN PHOSPHATE 50 MG TABLET PO SCH (09:29)
[2020-07-10] MEDS: METOPROLOL TARTRATE 50 MG TABLET PO SCH (09:29)
[2020-07-10 10:53] VITALS: BP 130/62
--- NOTE | 2020-07-14 07:24 | PDOC DISCHARGE SUMMARY ---
Impression - Admit/DC Date/PCP Admission Date/Primary Care Provider: 07/08/20 11:54 SLOANE CERDA MD Discharge Date: 07/10/20 - Discharge Diagnosis (1) Intractable low back pain Is this a current diagnosis for this admission?: Yes (2) Hyperglycemia due to diabetes mellitus Is this a current diagnosis for this admission?: Yes (3) Hyperlipidemia Is this a current diagnosis for this admission?: Yes (4) Hypertension Is this a current diagnosis for this admission?: Yes (5) Iron deficiency anemia Is this a current diagnosis for this admission?: Yes (6) Lumbar disc disease Is this a current diagnosis for this admission?: Yes (7) Suicidal ideation Is this a current diagnosis for this admission?: Yes - Additional Information Resuscitation Status: Do Not Resuscitate Discharge Diet: Cardiac, Diabetic Discharge Activity: Activity As Tolerated, Balance Activity w/Rest, Slowly Increase Activity Referrals: SLOANE CERDA MD [Primary Care Provider] - 07/10/20 1:30 pm CARLOS ESPINO MD [ACTIVE STAFF] - 07/11/20 8:30 am Prescriptions: Duloxetine HCl [Cymbalta 20 mg Capsule.dr] 20 mg PO DAILY #30 capsule.dr Naproxen [Naprosyn 375 mg Tablet] 375 mg PO BIDBS #14 tablet Oxycodone HCl/Acetaminophen [Percocet 5-325 mg Tablet] 1 tab PO Q6HP PRN #12 tab PRN Reason: Home Medications: Aspirin [Adult Low Dose Aspirin EC] 81 mg PO DAILY 09/21/15 Atorvastatin Calcium [Lipitor 40 mg Tablet] 40 mg PO DAILY 09/21/15 Metoprolol Tartrate [Lopressor] 50 mg PO BID 09/21/15 [place]-3 Fatty Acids [[place]-3] 1,000 mg PO DAILY 09/21/15 Sitagliptin Phos/Metformin HCl [Janumet 50-1,000 mg Tablet] 1 each PO DAILY 09/21/15 Lidocaine [Lidoderm 5% (700 mg) Transdermal Patch] 1 patch TP DAILY #30 adh..patch 07/05/20 Oxycodone HCl [Oxy-Ir 5 mg Tablet] 0.5 - 1 tab PO TID PRN #5 tab 07/05/20 Baclofen [Baclofen 10 mg Tablet] 10 mg PO BID #20 tab 07/06/20 Nitrofurantoin Monohyd/M-Cryst [Macrobid 100 mg Capsule] 100 mg PO BID #20 cap 07/06/20 Tramadol HCl [Ultram 50 mg Tablet] 50 mg PO Q4HP PRN #12 tab 07/06/20 Cholecalciferol (Vitamin D3) [Vitamin D3] 25 mcg PO DAILY 07/08/20 Fluticasone Propionate [Flonase Nasal [place] 50 Mcg/[place] 16 gm] 1 spray NASL DAILY 07/08/20 Acetaminophen [Tylenol 325 mg Tablet] 650 mg PO Q4HP PRN tablet 07/09/20 Duloxetine HCl [Cymbalta 20 mg Capsule.] 20 mg PO DAILY #30 capsule. 07/09/20 Naproxen [Naprosyn 375 mg Tablet] 375 mg PO BIDBS #14 tablet 07/09/20 Oxycodone HCl/Acetaminophen [Percocet 5-325 mg Tablet] 1 tab PO Q6HP PRN #12 tab 07/10/20 Docusate Sodium [Colace 100 mg Capsule] 100 mg PO BID #60 capsule 07/12/20 History of Present Illiness History of Present Illness: Per H&P by Dr. Castaneda: MANNY RENTERIA is a 85 year old female who was in the emergency department daily for the last 3 days. She went to her primary care provider who contacted me for direct admission. She has diabetes mellitus and hypertension and has been having intractable back pain with an inability to walk. This has precluded eating regularly at home. Hospital Course Hospital Course: (1) Intractable low back pain The patient has been in the emergency department daily for the last 3 days prior to admission. An MRI last year showed lumbar disc disease with bulging however she does not have any findings for radicular neuropathy or weakness from compromised nerve. Reveiw of the [place] Controlled Substance Database showed two recent, short, prescriptions for narcotics (tramadol and [place]); no chronic medications. Continue baclofen 3 times daily as needed. Continue naproxen twice daily. Patient has been started on Cymbalta. Toradol as needed for breakthrough pain. Encourage nonpharmacological interventions. Recommend outpatient orthopedic and/or pain management consultation. She is provided short Rx for percocet; discussed importance of ortho/pain management consultations as I did not recommend that she continue on intermediate opiates. (2) Hyperglycemia due to diabetes mellitus A1c 8.3%; 8.5% is acceptable for a frail elderly patient prone to hypoglycemia. Would recommend close outpatient follow-up. Consistent carb diet. Resume outpatient regiment at discharge. Close outpatient follow-up with PCP (3) Hyperlipidemia Continue atorvastatin. She can return to her supplements including fish oil after discharge. (4) Hypertension Adequately controlled blood pressures; slight elevation related to pain/discomfort. Continue metoprolol at this time. We will also continue her aspirin and statin therapy. (5) Iron deficiency anemia Continue home dose ferrous sulfate. (6) Lumbar disc disease History of lumbar disc disease. She does not appear to have a focal neurologic exam. This may be more sciatica. Physical therapy consultation obtained; patient was able to stand from supine position, ambulate ~10 feet, and toilet herself independently. Remaining management as above. (7) Urinary tract infection Urinalysis from yesterday's emergency department was leukocyte Estrace positive and revealed many white cells. She was started on Macrobid at that time. Medication was continued in house and patient was advised to complete her course of therapy at discharge. (8) Suicidal ideation At time of planned discharge, the patient made statements to the nurse that she had multiple prescriptions at home from her previous emergency department visits that she had been stating. She stated that she intended to take these medications "to end it." Discharge placed on hold and Mental health consultation is requested to evaluate suicide risk. Mental Health evaluation determined patient was low risk for SI; patient was demonstrating symptoms of chronic pain and medication seeking behaviors. Cleared from their perspective for d/c home. Physical Exam Vital Signs: Temp Pulse Resp BP Pulse Ox 97.5 F 81 17 130/62 H 94 07/10/20 10:53 07/10/20 10:53 07/10/20 10:53 07/10/20 10:53 07/10/20 10:53 General appearance: PRESENT: no acute distress, thin, well-developed, well- nourished Head exam: PRESENT: atraumatic, normocephalic Eye exam: PRESENT: conjunctiva pink, EOMI, PERRLA. ABSENT: scleral icterus Mouth exam: PRESENT: moist, tongue midline Respiratory exam: PRESENT: clear to auscultation damien, symmetrical, unlabored. ABSENT: rales, rhonchi, wheezes Cardiovascular exam: PRESENT: RRR. ABSENT: diastolic murmur, rubs, systolic murmur Pulses: PRESENT: normal dorsalis pedis pul Vascular exam: PRESENT: normal capillary refill Extremities exam: PRESENT: full ROM. ABSENT: calf tenderness, clubbing, pedal edema Musculoskeletal exam: PRESENT: ambulatory, tenderness - With weightbearing to LLE Neurological exam: PRESENT: alert, awake, oriented to person, oriented to place, oriented to time, oriented to situation, CN II-XII grossly intact. ABSENT: motor sensory deficit Psychiatric exam: PRESENT: agitated, anxious. ABSENT: homicidal ideation, suicidal ideation Skin exam: PRESENT: dry, intact, warm. ABSENT: cyanosis, rash Results Laboratory Results: WBC 8.9 10^3/uL (4.0-10.5) 07/08/20 11:11 RBC 4.20 10^6/uL (3.72-5.28) 07/08/20 11:11 Hgb 12.5 g/dL (12.0-15.5) 07/08/20 11:11 Hct 37.6 % (36.0-47.0) 07/08/20 11:11 MCV 90 fl (80-97) 07/08/20 11:11 MCH 29.7 pg (27.0-33.4) 07/08/20 11:11 MCHC 33.2 g/dL (32.0-36.0) 07/08/20 11:11 RDW 13.8 % (11.5-14.0) 07/08/20 11:11 Plt Count 195 10^3/uL (150-450) 07/08/20 11:11 ESR 41 mm/hr (0-30) H 07/08/20 11:11 Sodium 133.2 mmol/L (137-145) L 07/08/20 11:11 Potassium 4.4 mmol/L (3.6-5.0) 07/08/20 11:11 Chloride 104 mmol/L (98-107) 07/08/20 11:11 Carbon Dioxide 24 mmol/L (22-30) 07/08/20 11:11 Anion Gap 5 (5-19) 07/08/20 11:11 BUN 18 mg/dL (7-20) 07/08/20 11:11 Creatinine 0.71 mg/dL (0.52-1.25) 07/08/20 11:11 Est GFR ( Amer) > 60 (>60) 07/08/20 11:11 Est GFR (MDRD) Non-Af > 60 (>60) 07/08/20 11:11 Glucose 151 mg/dL (75-110) H 07/08/20 11:11 POC Glucose 147 mg/dL (70-110) H 07/10/20 07:57 Hemoglobin A1c % 8.3 % (4.7-6.0) H 07/08/20 11:11 Calcium 8.7 mg/dL (8.4-10.2) 07/08/20 11:11 Total Bilirubin 0.7 mg/dL (0.2-1.3) 07/08/20 11:11 Direct Bilirubin 0.0 mg/dL (0.0-0.4) 07/08/20 11:11 Neonat Total Bilirubin Not Reportable 07/08/20 11:11 Neonat Direct Bilirubin Not Reportable 07/08/20 11:11 Neonat Indirect Bili Not Reportable 07/08/20 11:11 AST 21 U/L (14-36) 07/08/20 11:11 ALT 11 U/L (<35) 07/08/20 11:11 Alkaline Phosphatase 90 U/L (38-126) 07/08/20 11:11 Total Protein 6.6 g/dL (6.3-8.2) 07/08/20 11:11 Albumin 3.5 g/dL (3.5-5.0) 07/08/20 11:11 Plan Plan of Treatment: Patient is discharged home, in stable condition, to the care of family members. She is advised to follow-up with her primary care provider within [address] Espino for further evaluation of her hip pain as scheduled. She is instructed to take her medications as prescribed. Continue use nonpharmacological interventions such as ice, heat, position changing, gentle stretches and to avoid bedbound status. She is encouraged to return to the emergency department as needed for concerning symptoms. Time Spent: Greater than 30 Minutes Stroke Is this a Stroke Patient?: No Acute Heart Failure - Is this a Heart Failure Patient?: No
== END 2020-07-10 11:19 | disposition home or self-care (01) ==
LOC: ER 10:56 → EH 11:54 → 5 13:42
PROVIDERS: ADMIT Hospitalist; ATTEND Registered Nurse
DX: M54.5 Low back pain (principal); N30.00 Acute cystitis without hematuria; M51.36 Other intervertebral disc degeneration, lumbar region; E11.65 Type 2 diabetes mellitus with hyperglycemia; G89.29 Other chronic pain; R26.2 Difficulty in walking, not elsewhere classified; I10 Essential (primary) hypertension; E78.5 Hyperlipidemia, unspecified; D50.9 Iron deficiency anemia, unspecified; R45.851 Suicidal ideations; M25.552 Pain in left hip; Z73.3 Stress, not elsewhere classified; R63.0 Anorexia; Z87.891 Personal history of nicotine dependence; Z60.2 Problems related to living alone; Z79.82 Long term (current) use of aspirin; Z79.899 Other long term (current) drug therapy; Z66 Do not resuscitate
CPT/HCPCS: 36415; 82962 ×3; 85027; 85652; 80053; 83036; 97530; 97161; G0378 ×3; G0379; A9270 ×26; J1644 ×3; J1885 ×2; J3490 ×2; J7030; J1815; J8499

== ENCOUNTER 2020-07-12 10:06 | Emergency (ER) | payer MEDICARE, OTHER ==
[2020-07-12] MEDS ORDERED: ONDANSETRON HCL INJ/PF 4 MG/2 ML SDV IV ONE (10:25)
[2020-07-12] MEDS ORDERED: MORPHINE SULFATE 10 MG/ML INJ IV ONE ×2 (10:25→14:40)
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
[2020-07-12 11:10] LABS: ABSOLUTE BASOPHILS # (AUTO) 0.1 10^3/uL (0.0-0.2); ABSOLUTE EOSINOPHILS # (AUTO) 0.1 10^3/uL (0.0-0.6); ABSOLUTE LYMPHOCYTES (AUTO) 1.4 10^3/uL (0.5-4.7); ABSOLUTE MONOCYTES (AUTO) 0.9 10^3/uL (0.1-1.4); ABSOLUTE NEUT (AUTO) 7.2 10^3/uL (1.7-8.2); BASOPHILS % (AUTO) 0.6 % (0-2); EOSINOPHILS % (AUTO) 1.1 % (0-6); HEMATOCRIT 39.6 % (36.0-47.0); HEMOGLOBIN 13.1 g/dL (12.0-15.5); LYMPHOCYTES % (AUTO) 14.1 % (13-45); MEAN CORPUSCULAR HEMOGLOBIN 29.8 pg (27.0-33.4); MEAN CORPUSCULAR VOLUME 90 fl (80-97); MONOCYTES % (AUTO) 9.7 % (3-13); PLATELET COUNT 248 10^3/uL (150-450); RED BLOOD COUNT 4.39 10^6/uL (3.72-5.28); RED CELL DISTRIBUTION WIDTH 14.1 % (11.5-14.0); SEGMENTED NEUTROPHILS % (AUTO) 74.5 % (42-78); TOTAL CELLS COUNTED % (AUTO) 100 %; WHITE BLOOD COUNT 9.7 10^3/uL (4.0-10.5)
[2020-07-12 11:18] LABS: ALBUMIN 3.5 g/dL (3.5-5.0); ALKALINE PHOSPHATASE 86 U/L (38-126); ANION GAP 6 (5-19); ASPARTATE AMINO TRANSFERASE 40 U/L (14-36); BILIRUBIN,TOTAL 0.7 mg/dL (0.2-1.3); BLOOD UREA NITROGEN 11 mg/dL (7-20); C-REACTIVE PROTEIN 72.7 mg/L (<10.0); CALCIUM 8.5 mg/dL (8.4-10.2); CARBON DIOXIDE 25 mmol/L (22-30); CHLORIDE 99 mmol/L (98-107); GLUCOSE 166 mg/dL (75-110); POTASSIUM 4.8 mmol/L (3.6-5.0); TOTAL PROTEIN 6.6 g/dL (6.3-8.2)
--- NOTE | 2020-07-12 12:06 | RADIOLOGY REPORT (SQ) ---
EXAM DESCRIPTION: KUB/ABDOMEN (SINGLE VIEW) IMAGES COMPLETED DATE/TIME: 07/12/2020 11:56 am REASON FOR STUDY: L hip pain, severe, no trauma, [id number] COMPARISON: 11/04/2016 NUMBER OF VIEWS: One view. TECHNIQUE: Supine radiographic image of the abdomen acquired. LIMITATIONS: None. FINDINGS: BOWEL GAS PATTERN: Nonobstructive gas pattern. Large amount of stool throughout the colon consistent with constipation. CALCIFICATIONS: No suspicious calcifications. SOFT TISSUES: No gross mass or suggestion of organomegaly. HARDWARE: None in the abdomen. BONES: No acute fracture. No worrisome bone lesions. OTHER: No other significant finding. IMPRESSION: Constipation. TECHNICAL DOCUMENTATION: JOB ID: [id number] 2010 [employer]- All Rights Reserved Reading location - IP/workstation name: [email or web address]
--- NOTE | 2020-07-12 12:45 | RADIOLOGY REPORT (SQ) ---
EXAM DESCRIPTION: MRI LUMBAR SPINE COMBO IMAGES COMPLETED DATE/TIME: 07/12/2020 12:32 pm REASON FOR STUDY: LBP,L hip,supposed to have MRIF@ 3p per Dr Espino COMPARISON: CT lumbar spine dated 07/18/2020 TECHNIQUE: Sagittal and Axial imaging includes T1, T1 post gadolinium, T2, STIR and gradient echo se quences. Coronal T2/HASTE imaging. CONTRAST TYPE AND DOSE: 10 mL Prohance. RENAL FUNCTION: Not indicated. ACR Type II contrast agent associated with few, if any, unconfounded cases of NSF LIMITATIONS: None. FINDINGS: VISUALIZED UPPER ABDOMEN: Limited evaluation. No acute or suspicious findings suggested. SEGMENTATION: No transitional anatomy. The lowest well-developed disc space is labeled L5-S1. ALIGNMENT: Anatomic. VERTEBRAE: Acute L1 compression fracture. Approximately 7 mm of retropulsion. Impingement of the an terior aspect of the thecal sac no significant mass effect on the conus or nerve roots. BONE MARROW: Marrow edema throughout the body of L1 DISC SIGNAL: Normal. No significant abnormal signal or loss of height. POSTERIOR ELEMENTS: Generally intact. No pars defect evident. HARDWARE: None in the spine. CORD AND CONUS: Normal in size and signal intensity. Conus at the appropriate level. SOFT TISSUES: No aortic aneurysm seen. No bulky retroperitoneal adenopathy or mass. No paraspinal mas s or fluid. L1-L2: No significant spinal stenosis or exit foraminal stenosis. L2-L3: No significant spinal stenosis or exit foraminal stenosis. L3-L4: Broad-based disc/osteophyte complex. No high-grade central stenosis. Mild bilateral foramina l narrowing. L4-L5: No significant spinal stenosis or exit foraminal stenosis. L5-S1: No significant spinal stenosis or exit foraminal stenosis. LOWER THORACIC: Incompletely imaged. No stenosis seen. SACRUM: Visualized upper sacrum intact. ENHANCEMENT: There is enhancement of the L1 vertebral body consistent with the fracture. OTHER: No other significant findings. IMPRESSION: Acute L1 compression fracture. There is approximately 7 mm of retropulsion as described . No other significant findings. TECHNICAL DOCUMENTATION: JOB ID: [id number] [employer]- All Rights Reserved Reading location - IP/workstation name: [email or web address]
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
[2020-07-12] MEDS ORDERED: NORMAL SALINE 1000 ML 1,000 ML IV ONE (14:11)
[2020-07-12] MEDS ORDERED: MAGNESIUM CITRATE 296 ML BOTTLE PO ONE (14:13)
[2020-07-12 14:56] LABS: APPEARANCE,URINE CLEAR; BILIRUBIN,URINE NEGATIVE (NEGATIVE); COLOR,URINE YELLOW; GLUCOSE, URINE NEGATIVE (NEGATIVE); KETONES,URINE 20 mg/dL (NEGATIVE); LEUKOCYTE ESTERASE,URINE TRACE (NEGATIVE); NITRITE,URINE NEGATIVE (NEGATIVE); PROTEIN,URINE NEGATIVE (NEGATIVE); URINE SPECIFIC GRAVITY 1.015; UROBILINOGEN,URINE NEGATIVE mg/dL (<2.0)
[2020-07-12 15:39] VITALS: BP 141/56
== END 2020-07-12 15:56 | disposition home or self-care (01) ==
LOC: ER 10:06
DX: M54.42 Lumbago with sciatica, left side (principal); R19.4 Change in bowel habit; N39.0 Urinary tract infection, site not specified; I10 Essential (primary) hypertension; E11.9 Type 2 diabetes mellitus without complications
CPT/HCPCS: 96376; 99285; 96374; 96375; 36415; 83605; 85025; 86140; 80053; 81001; 72158; 74018; A9576; A9270; J2270; J2405; J7030; J3490

== ENCOUNTER 2020-07-16 17:51 | Inpatient (IN) | payer MEDICARE, OTHER ==
[2020-07-16] MEDS ORDERED: ACETAMINOPHEN 325 MG TABLET PO PRN (19:06)
[2020-07-16] MEDS ORDERED: HYDROMORPHONE HCL INJ/PF 2 MG/ML AMPULE IV PRN (19:06)
[2020-07-16] MEDS ORDERED: ONDANSETRON HCL INJ/PF 4 MG/2 ML SDV IV PRN (19:06)
--- NOTE | 2020-07-16 19:24 | ADVANCED CARE ---
- Diagnosis (1) Compression fracture of L1 lumbar vertebra Diagnosis Current: Yes (2) T2DM (type 2 diabetes mellitus) Diagnosis Current: Yes (3) Anxiety Diagnosis Current: Yes (4) Hyperlipidemia Diagnosis Current: Yes (5) Hypertension Diagnosis Current: Yes (6) Intractable low back pain Diagnosis Current: Yes Attendance: Patient and former [id number] Resuscitation Status: Full Code Discussion: All aspects of code status discussed with patient/POA including cardioversion, chest compressions, and intubation and the patient/POA indicated they wish to be full code MPOA is designated as: Cristhian Leal Time Spent: Greater than 16 minutes
--- NOTE | 2020-07-16 19:24 | PDOC H&P ---
History of Present Illness Admission Date/PCP: 07/16/20 17:51 SLOANE CERDA MD History of Present Illness: MANNY RENTERIA is a 85 year old female with past medical history significant for HTN, HLD, T2DM who presents to the ED with 2 weeks of severe progressive low back pain radiating to her left hip which patient states began suddenly while she was working in her yard. Patient came to ED reportedly 3 times over the past few weeks and was sent home each time with pain medications and follow-up. Patient was also admitted on 07/08 and discharged on 07/14 for similar back pain episode. Patient had seen her orthopedist last week who had ordered an MRI of her lumbar spine which showed a acute L1 compression fracture. Patient was instructed to go to the ED for admission and kyphoplasty unfortunately this did not happen. Today, patient is having another episode of severe pain and she was seen in her PCP office who recommended patient go to the ER and get admitted after PCP had spoken with Dr. Espino about the MRI results. Patient started on very low-dose Dilaudid as needed with scheduled gabapentin. Past Medical History Cardiac Medical History: Reports: Hyperlipidema, Hypertension Denies: Congestive Heart Failure, Coronary Artery Disease, Myocardial Infarction Pulmonary Medical History: Denies: Asthma, Bronchitis, Chronic Obstructive Pulmonary Disease (COPD) Neurological Medical History: Denies: Migraine Endocrine Medical History: Reports: Diabetes Mellitus Type 2 GI Medical History: Reports: Gastroesophageal Reflux Disease Musculoskeltal Medical History: Reports: Arthritis Psychiatric Medical History: Denies: Depression Hematology: Reports: Anemia Social History Smoking Status: Never Smoker Frequency of Alcohol Use: Occasional Hx Recreational Drug Use: No Drugs: None Hx Prescription Drug Abuse: No - Advance Directive Resuscitation Status: Full Code Surrogate healthcare decision maker:: Cristhian Leal Family History Family History: CAD, CVA, DM, Hypertension, Malignancy Parental Family History Reviewed: Yes Children Family History Reviewed: Yes Sibling(s) Family History Reviewed.: Yes Medication/Allergy Home Medications: Aspirin [Adult Low Dose Aspirin EC] 81 mg PO DAILY 09/21/15 Atorvastatin Calcium [Lipitor 40 mg Tablet] 40 mg PO DAILY 09/21/15 Metoprolol Tartrate [Lopressor] 50 mg PO BID 09/21/15 [place]-3 Fatty Acids [[place]-3] 1,000 mg PO DAILY 09/21/15 Sitagliptin Phos/Metformin HCl [Janumet 50-1,000 mg Tablet] 1 each PO DAILY 09/21/15 Lidocaine [Lidoderm 5% (700 mg) Transdermal Patch] 1 patch TP DAILY #30 adh..patch 07/05/20 Oxycodone HCl [Oxy-Ir 5 mg Tablet] 0.5 - 1 tab PO TID PRN #5 tab 07/05/20 Baclofen [Baclofen 10 mg Tablet] 10 mg PO BID #20 tab 07/06/20 Nitrofurantoin Monohyd/M-Cryst [Macrobid 100 mg Capsule] 100 mg PO BID #20 cap 07/06/20 Tramadol HCl [Ultram 50 mg Tablet] 50 mg PO Q4HP PRN #12 tab 07/06/20 Cholecalciferol (Vitamin D3) [Vitamin D3] 25 mcg PO DAILY 07/08/20 Fluticasone Propionate [Flonase Nasal [place] 50 Mcg/[place] 16 gm] 1 spray NASL DAILY 07/08/20 Acetaminophen [Tylenol 325 mg Tablet] 650 mg PO Q4HP PRN tablet 07/09/20 Duloxetine HCl [Cymbalta 20 mg Capsule.dr] 20 mg PO DAILY #30 capsule.dr 07/09/20 Naproxen [Naprosyn 375 mg Tablet] 375 mg PO BIDBS #14 tablet 07/09/20 Oxycodone HCl/Acetaminophen [Percocet 5-325 mg Tablet] 1 tab PO Q6HP PRN #12 tab 07/10/20 Docusate Sodium [Colace 100 mg Capsule] 100 mg PO BID #60 capsule 07/12/20 Allergies/Adverse Reactions: No Known Drug Allergies Allergy (Verified 07/08/20 12:01) Review of Systems All systems: reviewed and no additional remarkable complaints except as stated - Review of systems per HPI, otherwise negative Physical Exam General appearance: PRESENT: no acute distress, cooperative, well-developed, well-nourished Head exam: PRESENT: atraumatic, normocephalic Eye exam: PRESENT: conjunctiva pink Mouth exam: PRESENT: moist Respiratory exam: PRESENT: clear to auscultation damien. ABSENT: rales, rhonchi, wheezes Cardiovascular exam: PRESENT: RRR. ABSENT: diastolic murmur, rubs, systolic murmur GI/Abdominal exam: PRESENT: normal bowel sounds, soft. ABSENT: distended, guarding, mass, organolmegaly, rebound, tenderness Rectal exam: PRESENT: deferred Neurological exam: PRESENT: alert, awake, oriented to person, oriented to place, oriented to time, oriented to situation, reflexes normal. ABSENT: motor sensory deficit Psychiatric exam: PRESENT: anxious, normal mood Skin exam: PRESENT: dry, intact, warm Assessment and Plan - Diagnosis (1) Compression fracture of L1 lumbar vertebra Is this a current diagnosis for this admission?: Yes Plan: Seen on MRI lumbar spine Follows with Dr. Espino outpatient Admitted for severe intractable pain Kyphoplasty planned per Dr. Aj reportedly As needed very low-dose Dilaudid to be used sparingly Gabapentin 100 mg every 8 hours (2) T2DM (type 2 diabetes mellitus) Qualifiers: Diabetes mellitus terminal supervisor insulin use: without half-way use Diabetes mellitus complication status: without complication Qualified Code(s): E11.9 - Type 2 diabetes mellitus without complications Is this a current diagnosis for this admission?: Yes Plan: Continue Januvia and metformin Accu-Cheks, sliding scale insulin (3) Anxiety Is this a current diagnosis for this admission?: Yes (4) Hyperlipidemia Qualifiers: Hyperlipidemia type: unspecified Qualified Code(s): E78.5 - Hyperlipidemia, unspecified Is this a current diagnosis for this admission?: Yes (5) Hypertension Qualifiers: Hypertension type: essential hypertension Qualified Code(s): I10 - Essential (primary) hypertension Is this a current diagnosis for this admission?: Yes Plan: Restart home meds once confirmed (6) Intractable low back pain Is this a current diagnosis for this admission?: Yes Plan: Pain management as above Consulted Dr. Lyle - Time Time Spent with patient: 35 or more minutes Medications reviewed and adjusted accordingly: Yes Anticipated Discharge Disposition: Home with Home Health Anticipated Discharge Timeframe: within 72 hours - Inpatient Certification Based on my medical assessment, after consideration of the patient's comorbidities, presenting symptoms, or acuity I expect that the services needed warrant INPATIENT care.: Yes I certify that my determination is in accordance with my understanding of Medicare's requirements for reasonable and necessary INPATIENT services [42 CFR 412.3e].: Yes Medical Necessity: Significant Comorbidiites Make Outpatient Treatment Too Risky, Need Close Monitoring Due to Risk of Patient Decompensation, Need for Pain Control, Risk of Complication if Not Cared For in Hospital, Risk of Diagnosis Which Will Require Inpatient Eval/Care/Monitoring
[2020-07-16] MEDS: GABAPENTIN 100 MG CAPSULE PO SCH (22:18)
[2020-07-16] MEDS: HYDROMORPHONE HCL INJ/PF 2 MG/ML AMPULE IV PRN (23:19)
[2020-07-16] MEDS: INSULIN LISPRO 100 UNIT/ML 3 ML VIAL SUBCUT SCH (23:23)
[2020-07-17 04:41] LABS: ABSOLUTE EOSINOPHILS # (AUTO) 0.1 10^3/uL (0.0-0.6); ABSOLUTE LYMPHOCYTES (AUTO) 1.8 10^3/uL (0.5-4.7); ABSOLUTE MONOCYTES (AUTO) 0.7 10^3/uL (0.1-1.4); ABSOLUTE NEUT (AUTO) 3.6 10^3/uL (1.7-8.2); BASOPHILS % (AUTO) 0.8 % (0-2); EOSINOPHILS % (AUTO) 0.9 % (0-6); HEMATOCRIT 43.5 % (36.0-47.0); HEMOGLOBIN 14.5 g/dL (12.0-15.5); LYMPHOCYTES % (AUTO) 29.1 % (13-45); MEAN CORPUSCULAR HEMOGLOBIN 29.3 pg (27.0-33.4); MEAN CORPUSCULAR HGB CONC 33.3 g/dL (32.0-36.0); MEAN CORPUSCULAR VOLUME 88 fl (80-97); MONOCYTES % (AUTO) 11.6 % (3-13); PLATELET COUNT 221 10^3/uL (150-450); RED BLOOD COUNT 4.93 10^6/uL (3.72-5.28); RED CELL DISTRIBUTION WIDTH 13.7 % (11.5-14.0); SEGMENTED NEUTROPHILS % (AUTO) 57.6 % (42-78); TOTAL CELLS COUNTED % (AUTO) 100 %; WHITE BLOOD COUNT 6.3 10^3/uL (4.0-10.5)
[2020-07-17 04:52] LABS: ANION GAP 6 (5-19); BLOOD UREA NITROGEN 13 mg/dL (7-20); CALCIUM 8.6 mg/dL (8.4-10.2); CARBON DIOXIDE 31 mmol/L (22-30); CHLORIDE 98 mmol/L (98-107); GLUCOSE 122 mg/dL (75-110); PHOSPHORUS 4.3 mg/dL (2.5-4.5); POTASSIUM 3.8 mmol/L (3.6-5.0)
[2020-07-17] MEDS: GABAPENTIN 100 MG CAPSULE PO SCH ×2 (06:19→18:33)
[2020-07-17] MEDS: INSULIN LISPRO 100 UNIT/ML 3 ML VIAL SUBCUT SCH ×3 (08:00→22:52)
[2020-07-17] MEDS: HYDROMORPHONE HCL INJ/PF 2 MG/ML AMPULE IV PRN ×2 (09:13→23:19)
[2020-07-17] MEDS ORDERED: SITAGLIPTIN PHOSPHATE 25 MG TABLET PO SCH (10:00)
[2020-07-17] MEDS: SITAGLIPTIN PHOSPHATE 50 MG TABLET PO SCH (10:00)
[2020-07-17] MEDS: METFORMIN HCL 500 MG TABLET PO SCH (10:00)
--- NOTE | 2020-07-17 18:18 | PDOC PROGRESS REPORT ---
Subjective Progress Note for:: 07/17/20 Subjective:: Patient in for intractable back pain and compression fracture of L1 vertebrae. I spoke with pain management Dr. Reynoso today who stated patient is not a candidate for vertebroplasty or kyphoplasty. He recommended patient be put in a TLSO brace and follow-up with neurosurgery in [place] approximately 2 weeks after conservative management for pain. Patient states her pain is significantly improved after getting some gabapentin and low-dose Dilaudid overnight. She has no new complaints today although she does have some emotional lability intermittently. Per family, this is a chronic issue for her. Labs and vitals are stable. Patient is working with PT and after I spoke with the patient's family they are in agreement that the patient would be best served at a SNF. Reason For Visit: INTRACTABLE BACK PAIN T2DM HTN Physical Exam Vital Signs: Temp Pulse Resp BP Pulse Ox 98.3 F 77 14 132/67 H 97 07/17/20 15:56 07/17/20 15:56 07/17/20 15:56 07/17/20 15:56 07/17/20 15:56 Intake & Output 07/16/20 07/17/20 07/18/20 06:59 06:59 06:59 Intake Total 150 118 Output Total 300 Balance -150 118 Weight 58.3 kg General appearance: PRESENT: no acute distress, well-developed, well-nourished Head exam: PRESENT: atraumatic, normocephalic Eye exam: PRESENT: conjunctiva pink Mouth exam: PRESENT: moist Respiratory exam: PRESENT: clear to auscultation damien. ABSENT: rales, rhonchi, wheezes Cardiovascular exam: PRESENT: RRR. ABSENT: diastolic murmur, rubs, systolic murmur GI/Abdominal exam: PRESENT: normal bowel sounds, soft. ABSENT: distended, guarding, mass, organolmegaly, rebound, tenderness Neurological exam: PRESENT: alert, awake, oriented to person, oriented to place, oriented to time, oriented to situation Psychiatric exam: PRESENT: anxious, normal mood Skin exam: PRESENT: dry, intact, warm Results Laboratory Results: 07/17/20 04:12 07/17/20 04:12 07/17/20 07/17/20 04:12 04:12 WBC 6.3 RBC 4.93 Hgb 14.5 Hct 43.5 MCV 88 MCH 29.3 MCHC 33.3 RDW 13.7 Plt Count 221 Seg Neutrophils % 57.6 Sodium 135.1 L Potassium 3.8 Chloride 98 Carbon Dioxide 31 H Anion Gap 6 BUN 13 Creatinine 0.63 Est GFR ( Amer) > 60 Glucose 122 H Calcium 8.6 Phosphorus 4.3 Magnesium 2.0 Assessment and Plan - Diagnosis (1) Compression fracture of L1 lumbar vertebra Is this a current diagnosis for this admission?: Yes Plan: Seen on MRI lumbar spine Follows with Dr. Espino outpatient Admitted for severe intractable pain Kyphoplasty and vertebroplasty cannot be done due to progression of compression fracture; pain management recommends TLSO brace and conservative oral pain medicine with rehab As needed very low-dose Dilaudid to be used sparingly Gabapentin 100 mg every 8 hours (2) T2DM (type 2 diabetes mellitus) Qualifiers: Diabetes mellitus long term care pharmacist insulin use: without long term care pharmacist use Diabetes mellitus complication status: without complication Qualified Code(s): E11.9 - Type 2 diabetes mellitus without complications Is this a current diagnosis for this admission?: Yes Plan: Continue Januvia and metformin Accu-Cheks, sliding scale insulin Controlled (3) Anxiety Is this a current diagnosis for this admission?: Yes (4) Hyperlipidemia Qualifiers: Hyperlipidemia type: unspecified Qualified Code(s): E78.5 - Hyperlipidemia, unspecified Is this a current diagnosis for this admission?: Yes (5) Hypertension Qualifiers: Hypertension type: essential hypertension Qualified Code(s): I10 - Essential (primary) hypertension Is this a current diagnosis for this admission?: Yes (6) Intractable low back pain Is this a current diagnosis for this admission?: Yes - Time Time Spent with patient: 25-34 minutes Medications reviewed and adjusted accordingly: Yes Anticipated Discharge Disposition: [facility] Facility Anticipated Discharge Timeframe: within 72 hours - Inpatient Certification Based on my medical assessment, after consideration of the patient's comorbidities, presenting symptoms, or acuity I expect that the services needed warrant INPATIENT care.: Yes I certify that my determination is in accordance with my understanding of Medicare's requirements for reasonable and necessary INPATIENT services [42 CFR 412.3e].: Yes Medical Necessity: Significant Comorbidiites Make Outpatient Treatment Too Risky, Need Close Monitoring Due to Risk of Patient Decompensation, Need for Pain Control, Risk of Complication if Not Cared For in Hospital, Risk of Diagnosis Which Will Require Inpatient Eval/Care/Monitoring
[2020-07-17] MEDS: ENOXAPARIN SODIUM INJ 40 MG/0.4 ML DISP.SYRIN SUBCUT SCH (18:37)
[2020-07-17] MEDS: METOPROLOL TARTRATE 50 MG TABLET PO SCH (22:51)
[2020-07-18] MEDS: GABAPENTIN 100 MG CAPSULE PO SCH ×3 (02:12→17:07)
[2020-07-18] MEDS: INSULIN LISPRO 100 UNIT/ML 3 ML VIAL SUBCUT SCH ×4 (08:25→22:37)
[2020-07-18] MEDS: ATORVASTATIN CALCIUM 40 MG TABLET PO SCH (09:41)
[2020-07-18] MEDS: METFORMIN HCL 500 MG TABLET PO SCH (09:41)
[2020-07-18] MEDS: ASPIRIN 81 MG TABLET, ENT COATED PO SCH (09:41)
[2020-07-18] MEDS: OMEGA-3 ACID ETHYL ESTERS 1 GM CAPSULE PO SCH (09:42)
[2020-07-18] MEDS: SITAGLIPTIN PHOSPHATE 50 MG TABLET PO SCH (09:42)
[2020-07-18] MEDS: METOPROLOL TARTRATE 50 MG TABLET PO SCH ×2 (09:42→22:43)
[2020-07-18] MEDS: ENOXAPARIN SODIUM INJ 40 MG/0.4 ML DISP.SYRIN SUBCUT SCH (09:44)
[2020-07-18] MEDS ORDERED: CHOLECALCIFEROL (D3) 1,000 UNIT (25 MCG) TABLET PO SCH (10:00)
[2020-07-18] MEDS ORDERED: ESCITALOPRAM OXALATE 10 MG TABLET PO SCH (10:00)
[2020-07-18] MEDS ORDERED: (PENDING PHARMACY ID) (Ubidecarenone [Coq-10] 100 MG) PO SCH (10:00)
[2020-07-18] MEDS ORDERED: DOCUSATE SODIUM 100 MG CAPSULE PO SCH (10:00)
[2020-07-18] MEDS ORDERED: ENOXAPARIN SODIUM INJ 40 MG/0.4 ML DISP.SYRIN SUBCUT SCH (10:00)
[2020-07-18] MEDS ORDERED: (PENDING PHARMACY ID) (Omega-3 Fatty Acids [Omega-3] 1,000 MG) PO SCH (10:00)
[2020-07-18] MEDS: ONDANSETRON 4 MG TAB.RAPDIS PO PRN (13:00)
[2020-07-18] MEDS: HYDROMORPHONE HCL INJ/PF 2 MG/ML AMPULE IV PRN ×2 (13:11→22:43)
--- NOTE | 2020-07-18 15:48 | PDOC PROGRESS REPORT ---
Subjective Subjective:: Patient in for intractable back pain and compression fracture of L1 vertebrae. I spoke with pain management Dr. Reynoso today who stated patient is not a candidate for vertebroplasty or kyphoplasty. He recommended patient be put in a TLSO brace and follow-up with neurosurgery in [place] approximately 2 weeks after conservative management for pain. Patient states her pain is significantly improved after getting some gabapentin and low-dose Dilaudid overnight. She has no new complaints today although she does have some emotional lability intermittently. Per family, this is a chronic issue for her. Labs and vitals are stable. Patient is working with PT and after I spoke with the patient's family they are in agreement that the patient would be best served at a SNF. 07/18/2020 Patient is to be doing quite well today overall. I have placed an order yesterday for her back brace although this is not been delivered or fitted to her yet. She states her pain is primarily controlled. I have noted during this admission that she is rather anxious and per my discussion with her family this is an ongoing chronic problem. I have discussed starting Lexapro with her and she is agreeable to this. She may be able to go to [facility] tomorrow if she is accepted and she has her back brace delivered. She has no new complaints today. Reason For Visit: INTRACTABLE BACK PAIN T2DM HTN Physical Exam Vital Signs: Temp Pulse Resp BP Pulse Ox 98.4 F 67 15 118/52 L 99 07/18/20 11:27 07/18/20 11:27 07/18/20 11:27 07/18/20 11:27 07/18/20 11:27 Intake & Output 07/17/20 07/18/20 07/19/20 06:59 06:59 06:59 Intake Total 150 358 118 Output Total 300 Balance -150 358 118 Weight 58.3 kg 58 kg General appearance: PRESENT: no acute distress, well-developed, well-nourished Head exam: PRESENT: atraumatic, normocephalic Eye exam: PRESENT: conjunctiva pink Mouth exam: PRESENT: moist Respiratory exam: PRESENT: clear to auscultation damien. ABSENT: rales, rhonchi, wheezes Cardiovascular exam: PRESENT: RRR. ABSENT: diastolic murmur, rubs, systolic murmur GI/Abdominal exam: PRESENT: normal bowel sounds, soft. ABSENT: distended, guarding, mass, organolmegaly, rebound, tenderness Neurological exam: PRESENT: alert, awake, oriented to person, oriented to place, oriented to time, oriented to situation, CN II-XII grossly intact. ABSENT: motor sensory deficit Psychiatric exam: PRESENT: appropriate affect, normal mood Skin exam: PRESENT: dry, intact, warm Results Laboratory Results: 07/17/20 04:12 07/17/20 04:12 Assessment and Plan - Diagnosis (1) Compression fracture of L1 lumbar vertebra Is this a current diagnosis for this admission?: Yes Plan: Seen on MRI lumbar spine Follows with Dr. Espino outpatient Admitted for severe intractable pain Kyphoplasty and vertebroplasty cannot be done due to progression of compression fracture; pain management recommends TLSO brace and conservative oral pain medic ine with rehab As needed very low-dose Dilaudid to be used sparingly Gabapentin 100 mg every 8 hours Needs follow-up with spine/neurosurgery in [place] after discharge, discussed with patient and family (2) T2DM (type 2 diabetes mellitus) Qualifiers: Diabetes mellitus intermediate insulin use: without parts counterman use Diabetes mellitus complication status: without complication Qualified Code(s): E11.9 - Type 2 diabetes mellitus without complications Is this a current diagnosis for this admission?: Yes (3) Anxiety Is this a current diagnosis for this admission?: Yes Plan: Started on Lexapro which must be monitored by PCP with dose adjustments as appropriate (4) Hyperlipidemia Qualifiers: Hyperlipidemia type: unspecified Qualified Code(s): E78.5 - Hyperlipidemia, unspecified Is this a current diagnosis for this admission?: Yes (5) Hypertension Qualifiers: Hypertension type: essential hypertension Qualified Code(s): I10 - Essential (primary) hypertension Is this a current diagnosis for this admission?: Yes (6) Intractable low back pain Is this a current diagnosis for this admission?: Yes - Time Time Spent with patient: 15-24 minutes Medications reviewed and adjusted accordingly: Yes Anticipated Discharge Disposition: Group Home Facility Anticipated Discharge Timeframe: within 24 hours - Inpatient Certification Based on my medical assessment, after consideration of the patient's comorbidities, presenting symptoms, or acuity I expect that the services needed warrant INPATIENT care.: Yes I certify that my determination is in accordance with my understanding of [facility]'s requirements for reasonable and necessary INPATIENT services [42 CFR 412.3e].: Yes Medical Necessity: Significant Comorbidiites Make Outpatient Treatment Too Risky, Need Close Monitoring Due to Risk of Patient Decompensation, Need for Pain Control, Risk of Complication if Not Cared For in Hospital, Risk of Diagnosis Which Will Require Inpatient Eval/Care/Monitoring
[2020-07-19] MEDS: GABAPENTIN 100 MG CAPSULE PO SCH ×3 (01:36→18:00)
[2020-07-19] MEDS: INSULIN LISPRO 100 UNIT/ML 3 ML VIAL SUBCUT SCH ×4 (08:36→22:22)
[2020-07-19] MEDS ORDERED: PHARMACY COMMUNICATION ORDER MC NR (09:45)
[2020-07-19] MEDS: SITAGLIPTIN PHOSPHATE 50 MG TABLET PO SCH (11:14)
[2020-07-19] MEDS: ASPIRIN 81 MG TABLET, ENT COATED PO SCH (11:14)
[2020-07-19] MEDS: METOPROLOL TARTRATE 50 MG TABLET PO SCH ×2 (11:14→21:19)
[2020-07-19] MEDS: ATORVASTATIN CALCIUM 40 MG TABLET PO SCH (11:14)
[2020-07-19] MEDS: OMEGA-3 ACID ETHYL ESTERS 1 GM CAPSULE PO SCH (11:14)
[2020-07-19] MEDS: METFORMIN HCL 500 MG TABLET PO SCH (11:14)
[2020-07-19] MEDS: ENOXAPARIN SODIUM INJ 40 MG/0.4 ML DISP.SYRIN SUBCUT SCH (11:14)
[2020-07-19] MEDS: ASCORBIC ACID 500 MG TABLET PO SCH ×2 (11:15→18:00)
[2020-07-19] MEDS: ZINC SULFATE 220 MG CAPSULE PO SCH (11:15)
[2020-07-19] MEDS: CHOLECALCIFEROL (D3) 1,000 UNIT (25 MCG) TABLET PO SCH ×2 (11:15→18:00)
[2020-07-19 11:59] LABS: ALBUMIN 3.4 g/dL (3.5-5.0); ALKALINE PHOSPHATASE 98 U/L (38-126); ASPARTATE AMINO TRANSFERASE 29 U/L (14-36); BILIRUBIN,TOTAL 0.5 mg/dL (0.2-1.3); TOTAL PROTEIN 6.4 g/dL (6.3-8.2)
--- NOTE | 2020-07-19 12:13 | RADIOLOGY REPORT (SQ) ---
EXAM DESCRIPTION: CHEST SINGLE VIEW IMAGES COMPLETED DATE/TIME: 07/19/2020 12:02 pm REASON FOR STUDY: positive COVID COMPARISON: 05/05/2019 EXAM PARAMETERS: NUMBER OF VIEWS: One view. TECHNIQUE: Single frontal radiographic view of the chest acquired. RADIATION DOSE: NA LIMITATIONS: None. FINDINGS: LUNGS AND PLEURA: Mild ill-defined retrocardiac opacities on the left. Stable additional course chronic interstitial and emphysematous change. No pleural effusion or pneumothorax. MEDIASTINUM AND HILAR STRUCTURES: No masses. Contour normal. HEART AND VASCULAR STRUCTURES: Enlarged, stable. Vascular calcifications. BONES: No acute findings. Decreased mineralization. HARDWARE: None in the chest. OTHER: No other significant finding. IMPRESSION: Mild left basilar retrocardiac opacities, possibly infectious/inflammatory. Stable oscar tional course interstitial emphysematous change. TECHNICAL DOCUMENTATION: JOB ID: [id number] [employer]- All Rights Reserved Reading location - IP/workstation name: [email or web address]
--- NOTE | 2020-07-19 15:26 | PDOC PROGRESS REPORT ---
Subjective Subjective:: Patient in for intractable back pain and compression fracture of L1 vertebrae. I spoke with pain management Dr. Reynoso today who stated patient is not a candidate for vertebroplasty or kyphoplasty. He recommended patient be put in a TLSO brace and follow-up with neurosurgery in [place] approximately 2 weeks after conservative management for pain. Patient states her pain is significantly improved after getting some gabapentin and low-dose Dilaudid overnight. She has no new complaints today although she does have some emotional lability intermittently. Per family, this is a chronic issue for her. Labs and vitals are stable. Patient is working with PT and after I spoke with the patient's family they are in agreement that the patient would be best served at a SNF. 07/18/2020 Patient is to be doing quite well today overall. I have placed an order yesterday for her back brace although this is not been delivered or fitted to her yet. She states her pain is primarily controlled. I have noted during this admission that she is rather anxious and per my discussion with her family this is an ongoing chronic problem. I have discussed starting Lexapro with her and she is agreeable to this. She may be able to go to [facility] [place] tomorrow if she is accepted and she has her back brace delivered. She has no new complaints today. 07/19/2020 COVID test that was done for SNF placement is now positive. I discussed this with the patient's family at her request and they are currently getting tested as well. Some of them are reportedly positive as well. Also discussed this with nursing so that they can take the appropriate measures to protect themselves with appropriate PPE. I will check recommended COVID labs including d-dimer, lactic acid, CRP, ferritin. I have requested to the pharmacy the p atient be started on remdesivir. Her chest x-ray shows retrocardiac opacity possibly infectious/pneumonia. She had a desaturation into the 80s today. Patient denies any fevers or chills at this time. Patient has no new complaints today. Reason For Visit: INTRACTABLE BACK PAIN T2DM HTN Physical Exam Vital Signs: Temp Pulse Resp BP Pulse Ox 98.1 F 69 17 129/57 H 99 07/19/20 12:14 07/19/20 12:14 07/19/20 12:14 07/19/20 12:14 07/19/20 12:14 Intake & Output 07/18/20 07/19/20 07/20/20 06:59 06:59 06:59 Intake Total 358 318 118 Balance 358 318 118 Weight 58 kg 58.9 kg General appearance: PRESENT: no acute distress, well-developed, well-nourished Head exam: PRESENT: atraumatic, normocephalic Eye exam: PRESENT: conjunctiva pink Mouth exam: PRESENT: moist Respiratory exam: PRESENT: clear to auscultation damien. ABSENT: rales, rhonchi, w heezes Cardiovascular exam: PRESENT: RRR. ABSENT: diastolic murmur, rubs, systolic murmur GI/Abdominal exam: PRESENT: normal bowel sounds, soft. ABSENT: distended, guarding, mass, organolmegaly, rebound, tenderness Musculoskeletal exam: PRESENT: ambulatory Neurological exam: PRESENT: alert, awake, oriented to person, oriented to place, oriented to time, oriented to situation Psychiatric exam: PRESENT: appropriate affect, normal mood Skin exam: PRESENT: dry, intact, warm Results Laboratory Results: 07/17/20 04:12 07/17/20 04:12 07/19/20 11:09 Total Bilirubin 0.5 AST 29 Alkaline Phosphatase 98 Total Protein 6.4 Albumin 3.4 L Impressions: Chest X-Ray 07/19/20 00:00 IMPRESSION: Mild left basilar retrocardiac opacities, possibly infectious/inflammatory. Stable additional course interstitial emphysematous change. Assessment and Plan - Diagnosis (1) Compression fracture of L1 lumbar vertebra Is this a current diagnosis for this admission?: Yes (2) T2DM (type 2 diabetes mellitus) Qualifiers: Diabetes mellitus medical terminologist insulin use: without jail use Diabetes mellitus complication status: without complication Qualified Code(s): E11.9 - Type 2 diabetes mellitus without complications Is this a current diagnosis for this admission?: Yes (3) Anxiety Is this a current diagnosis for this admission?: Yes Plan: Started on Lexapro which must be monitored by PCP with dose adjustments as appropriate Stop Lexapro and changed to mirtazapine as patient has no appetite and is having trouble sleeping as well as depression/anxiety (4) Hyperlipidemia Qualifiers: Hyperlipidemia type: unspecified Qualified Code(s): E78.5 - Hyperlipidemia, unspecified Is this a current diagnosis for this admission?: Yes (5) Hypertension Qualifiers: Hypertension type: essential hypertension Qualified Code(s): I10 - Essential (primary) hypertension Is this a current diagnosis for this admission?: Yes (6) Intractable low back pain Is this a current diagnosis for this admission?: Yes (7) COVID-19 virus infection Is this a current diagnosis for this admission?: Yes Plan: X-ray showed retrocardiac opacities probably infectious COVID-19 testing positive on 07/17 D-dimer, ferritin, CRP, lactic acid Ordered remdesivir - Time Time Spent with patient: 35 or more minutes Medications reviewed and adjusted accordingly: Yes Anticipated Discharge Disposition: Home, Self Care Anticipated Discharge Timeframe: within 72 hours - Inpatient Certification Based on my medical assessment, after consideration of the patient's comorbidities, presenting symptoms, or acuity I expect that the services needed warrant INPATIENT care.: Yes I certify that my determination is in accordance with my understanding of Medicare's requirements for reasonable and necessary INPATIENT services [42 CFR 412.3e].: Yes Medical Necessity: Significant Comorbidiites Make Outpatient Treatment Too Risky, Need Close Monitoring Due to Risk of Patient Decompensation, Need for IV Antibiotics, Risk of Complication if Not Cared For in Hospital, Risk of Diagnosis Which Will Require Inpatient Eval/Care/Monitoring
[2020-07-19 16:52] LABS: ABSOLUTE EOSINOPHILS # (AUTO) 0.1 10^3/uL (0.0-0.6); ABSOLUTE LYMPHOCYTES (AUTO) 1.3 10^3/uL (0.5-4.7); ABSOLUTE MONOCYTES (AUTO) 0.6 10^3/uL (0.1-1.4); ABSOLUTE NEUT (AUTO) 5.6 10^3/uL (1.7-8.2); BASOPHILS % (AUTO) 0.4 % (0-2); HEMATOCRIT 42.7 % (36.0-47.0); HEMOGLOBIN 14.1 g/dL (12.0-15.5); LYMPHOCYTES % (AUTO) 17.6 % (13-45); MEAN CORPUSCULAR HEMOGLOBIN 29.4 pg (27.0-33.4); MEAN CORPUSCULAR HGB CONC 33.1 g/dL (32.0-36.0); MEAN CORPUSCULAR VOLUME 89 fl (80-97); MONOCYTES % (AUTO) 7.6 % (3-13); PLATELET COUNT 226 10^3/uL (150-450); RED BLOOD COUNT 4.81 10^6/uL (3.72-5.28); RED CELL DISTRIBUTION WIDTH 13.8 % (11.5-14.0); SEGMENTED NEUTROPHILS % (AUTO) 73.4 % (42-78); TOTAL CELLS COUNTED % (AUTO) 100 %; WHITE BLOOD COUNT 7.6 10^3/uL (4.0-10.5)
[2020-07-19 17:12] LABS: C-REACTIVE PROTEIN 33.1 mg/L (<10.0)
[2020-07-19] MEDS: MIRTAZAPINE 15 MG TABLET PO SCH (21:19)
[2020-07-19] MEDS: HYDROMORPHONE HCL INJ/PF 2 MG/ML AMPULE IV PRN (22:23)
[2020-07-20] MEDS: GABAPENTIN 100 MG CAPSULE PO SCH ×3 (01:25→16:59)
[2020-07-20] MEDS: INSULIN LISPRO 100 UNIT/ML 3 ML VIAL SUBCUT SCH ×4 (08:58→21:24)
[2020-07-20] MEDS: ENOXAPARIN SODIUM INJ 40 MG/0.4 ML DISP.SYRIN SUBCUT SCH (09:06)
[2020-07-20] MEDS: METFORMIN HCL 500 MG TABLET PO SCH (09:07)
[2020-07-20] MEDS: CHOLECALCIFEROL (D3) 1,000 UNIT (25 MCG) TABLET PO SCH ×2 (09:07→16:59)
[2020-07-20] MEDS: SITAGLIPTIN PHOSPHATE 50 MG TABLET PO SCH (09:07)
[2020-07-20] MEDS: METOPROLOL TARTRATE 50 MG TABLET PO SCH ×2 (09:07→22:24)
[2020-07-20] MEDS: ASCORBIC ACID 500 MG TABLET PO SCH ×2 (09:07→16:59)
[2020-07-20] MEDS: OMEGA-3 ACID ETHYL ESTERS 1 GM CAPSULE PO SCH (09:07)
[2020-07-20] MEDS: ZINC SULFATE 220 MG CAPSULE PO SCH (09:07)
[2020-07-20] MEDS: ASPIRIN 81 MG TABLET, ENT COATED PO SCH (09:07)
[2020-07-20] MEDS: ATORVASTATIN CALCIUM 40 MG TABLET PO SCH (09:07)
--- NOTE | 2020-07-20 17:47 | PDOC PROGRESS REPORT ---
Subjective Subjective:: Patient in for intractable back pain and compression fracture of L1 vertebrae. I spoke with pain management Dr. Reynoso today who stated patient is not a candidate for vertebroplasty or kyphoplasty. He recommended patient be put in a TLSO brace and follow-up with neurosurgery in [place] approximately 2 weeks after conservative management for pain. Patient states her pain is significantly improved after getting some gabapentin and low-dose Dilaudid overnight. She has no new complaints today although she does have some emotional lability intermittently. Per family, this is a chronic issue for her. Labs and vitals are stable. Patient is working with PT and after I spoke with the patient's family they are in agreement that the patient would be best served at a SNF. 07/18/2020 Patient is to be doing quite well today overall. I have placed an order yesterday for her back brace although this is not been delivered or fitted to her yet. She states her pain is primarily controlled. I have noted during this admission that she is rather anxious and per my discussion with her family this is an ongoing chronic problem. I have discussed starting Lexapro with her and she is agreeable to this. She may be able to go to [facility] tomorrow if she is accepted and she has her back brace delivered. She has no new complaints today. 07/19/2020 COVID test that was done for SNF placement is now positive. I discussed this with the patient's family at her request and they are currently getting tested as well. Some of them are reportedly positive as well. Also discussed this with nursing so that they can take the appropriate measures to protect themselves with appropriate PPE. I will check recommended COVID labs including d-dimer, lactic acid, CRP, ferritin. I have requested to the pharmacy the p atient be started on remdesivir. Her chest x-ray shows retrocardiac opacity possibly infectious/pneumonia. She had a desaturation into the 80s today. Patient denies any fevers or chills at this time. Patient has no new complaints today. 07/20/2020 Patient does not qualify for remdesivir and she is too clinically stable from a respiratory standpoint. She does not have any oxygen desaturations and is not requiring any supplemental oxygen. Her chest x-ray showed some retrocardiac opacities but otherwise did not show anything overtly specific for overwhelming viral pneumonia. Patient is having some anosmia and dysgeusia which is expected in the setting of coronavirus infection. I had a long talk with the patient and her family regarding the plan going forward. Patient seems to be rather unhappy in the coronavirus isolation unit and she is inquired about going home. I think this is a reasonable plan assuming she continues to do this well by tomorrow. Her family is looking into how to manage her care when she does come home. Alternatively, she could go to the coronavirus SNF in [place] if the family would prefer this and the patient qualifies from a rehab standpoint. Labs and vitals are stable. D-dimer is elevated as well as CRP however her lactic acid and ferritin are normal. Patient has some intermittent worse low back pain but otherwise does not have any new complaints. Reason For Visit: INTRACTABLE BACK PAIN T2DM HTN Physical Exam Vital Signs: Temp Pulse Resp BP Pulse Ox 98.1 F 63 16 121/51 L 98 07/20/20 15:58 07/20/20 15:58 07/20/20 15:58 07/20/20 15:58 07/20/20 15:58 Intake & Output 07/19/20 07/20/20 07/21/20 06:59 06:59 06:59 Intake Total 318 118 240 Balance 318 118 240 Weight 58.9 kg 57 kg General appearance: PRESENT: no acute distress, well-developed, well-nourished Head exam: PRESENT: atraumatic, normocephalic Eye exam: PRESENT: conjunctiva pink. ABSENT: scleral icterus Mouth exam: PRESENT: moist Respiratory exam: PRESENT: clear to auscultation damien. ABSENT: rales, rhonchi, wheezes Cardiovascular exam: PRESENT: RRR. ABSENT: diastolic murmur, rubs, systolic m urmur GI/Abdominal exam: PRESENT: normal bowel sounds, soft. ABSENT: distended, guarding, mass, organolmegaly, rebound, tenderness Neurological exam: PRESENT: alert, awake, oriented to person, oriented to place, oriented to time, oriented to situation Psychiatric exam: PRESENT: appropriate affect, normal mood Skin exam: PRESENT: dry, intact, warm Results Laboratory Results: 07/19/20 16:32 07/17/20 04:12 07/19/20 16:32 Ferritin 199.00 C-Reactive Protein 33.1 H Impressions: Chest X-Ray 07/19/20 00:00 IMPRESSION: Mild left basilar retrocardiac opacities, possibly infectious/inflammatory. Stable additional course interstitial emphysematous change. Assessment and Plan - Diagnosis (1) Compression fracture of L1 lumbar vertebra Is this a current diagnosis for this admission?: Yes Plan: Seen on MRI lumbar spine Follows with Dr. Espino outpatient Admitted for severe intractable pain Kyphoplasty and vertebroplasty cannot be done due to progression of compression fracture; pain management recommends TLSO brace and conservative oral pain medicine with rehab As needed very low-dose Dilaudid to be used sparingly Gabapentin 100 mg every 8 hours Needs follow-up with spine/neurosurgery in [place] after discharge, discussed with patient and family Considering discharge to coronavirus SNF in [place], family deciding this currently (2) T2DM (type 2 diabetes mellitus) Qualifiers: Diabetes mellitus long term care social worker insulin use: without long term care social worker use Diabetes mellitus complication status: without complication Qualified Code(s): E11.9 - Type 2 diabetes mellitus without complications Is this a current diagnosis for this admission?: Yes (3) Anxiety Is this a current diagnosis for this admission?: Yes Plan: Started on Lexapro which must be monitored by PCP with dose adjustments as appropriate Stop Lexapro and changed to mirtazapine as patient has no appetite and is hav ing trouble sleeping as well as depression/anxiety Tolerating mirtazapine quite well (4) Hyperlipidemia Qualifiers: Hyperlipidemia type: unspecified Qualified Code(s): E78.5 - Hyperlipidemia, unspecified Is this a current diagnosis for this admission?: Yes (5) Hypertension Qualifiers: Hypertension type: essential hypertension Qualified Code(s): I10 - Essential (primary) hypertension Is this a current diagnosis for this admission?: Yes (6) Intractable low back pain Is this a current diagnosis for this admission?: Yes (7) COVID-19 virus infection Is this a current diagnosis for this admission?: Yes Plan: X-ray showed retrocardiac opacities probably infectious COVID-19 testing positive on 07/17 D-dimer elevated, ferritin normal, CRP elevated, lactic acid normal Initially ordered remdesivir however patient did not qualify as she did not have worsening respiratory distress thankfully - Time Time Spent with patient: 35 or more minutes Medications reviewed and adjusted accordingly: Yes Anticipated [facility]position[facility] Anticipated Discharge Timeframe: within 48 hours - Inpatient Certification Based on my medical assessment, after consideration of the patient's comorbidities, presenting symptoms, or acuity I expect that the services needed warrant INPATIENT care.: Yes I certify that my determination is in accordance with my understanding of Medicare's requirements for reasonable and necessary INPATIENT services [42 CFR 412.3e].: Yes Medical Necessity: Significant Comorbidiites Make Outpatient Treatment Too Risky, Need Close Monitoring Due to Risk of Patient Decompensation, Need for Pain Control, Risk of Complication if Not Cared For in Hospital, Risk of Diagnosis Which Will Require Inpatient Eval/Care/Monitoring
[2020-07-20] MEDS: MIRTAZAPINE 15 MG TABLET PO SCH (21:28)
[2020-07-20] MEDS: HYDROMORPHONE HCL INJ/PF 2 MG/ML AMPULE IV PRN (22:28)
[2020-07-21] MEDS: GABAPENTIN 100 MG CAPSULE PO SCH ×3 (01:25→17:58)
[2020-07-21] MEDS: HYDROMORPHONE HCL INJ/PF 2 MG/ML AMPULE IV PRN ×3 (01:28→19:56)
[2020-07-21 07:54] LABS: ABSOLUTE EOSINOPHILS # (AUTO) 0.1 10^3/uL (0.0-0.6); ABSOLUTE LYMPHOCYTES (AUTO) 1.5 10^3/uL (0.5-4.7); ABSOLUTE MONOCYTES (AUTO) 0.7 10^3/uL (0.1-1.4); ABSOLUTE NEUT (AUTO) 3.5 10^3/uL (1.7-8.2); BASOPHILS % (AUTO) 0.7 % (0-2); HEMATOCRIT 40.3 % (36.0-47.0); HEMOGLOBIN 13.4 g/dL (12.0-15.5); LYMPHOCYTES % (AUTO) 26.5 % (13-45); MEAN CORPUSCULAR HEMOGLOBIN 29.2 pg (27.0-33.4); MEAN CORPUSCULAR HGB CONC 33.2 g/dL (32.0-36.0); MEAN CORPUSCULAR VOLUME 88 fl (80-97); MONOCYTES % (AUTO) 11.8 % (3-13); PLATELET COUNT 221 10^3/uL (150-450); RED BLOOD COUNT 4.59 10^6/uL (3.72-5.28); RED CELL DISTRIBUTION WIDTH 13.5 % (11.5-14.0); TOTAL CELLS COUNTED % (AUTO) 100 %; WHITE BLOOD COUNT 5.8 10^3/uL (4.0-10.5)
[2020-07-21 08:19] LABS: ANION GAP 10 (5-19); BLOOD UREA NITROGEN 12 mg/dL (7-20); CALCIUM 8.3 mg/dL (8.4-10.2); CARBON DIOXIDE 18 mmol/L (22-30); CHLORIDE 105 mmol/L (98-107); GLUCOSE 75 mg/dL (75-110); POTASSIUM 3.9 mmol/L (3.6-5.0)
[2020-07-21] MEDS: INSULIN LISPRO 100 UNIT/ML 3 ML VIAL SUBCUT SCH ×4 (09:58→23:13)
[2020-07-21] MEDS: OMEGA-3 ACID ETHYL ESTERS 1 GM CAPSULE PO SCH (10:00)
[2020-07-21] MEDS: SITAGLIPTIN PHOSPHATE 50 MG TABLET PO SCH (10:00)
[2020-07-21] MEDS: ATORVASTATIN CALCIUM 40 MG TABLET PO SCH (10:00)
[2020-07-21] MEDS: ASPIRIN 81 MG TABLET, ENT COATED PO SCH (10:00)
[2020-07-21] MEDS: METOPROLOL TARTRATE 50 MG TABLET PO SCH ×2 (10:00→23:14)
[2020-07-21] MEDS: ASCORBIC ACID 500 MG TABLET PO SCH ×2 (10:01→17:58)
[2020-07-21] MEDS: CHOLECALCIFEROL (D3) 1,000 UNIT (25 MCG) TABLET PO SCH ×2 (10:01→17:58)
[2020-07-21] MEDS: METFORMIN HCL 500 MG TABLET PO SCH (10:01)
[2020-07-21] MEDS: ENOXAPARIN SODIUM INJ 40 MG/0.4 ML DISP.SYRIN SUBCUT SCH (10:01)
[2020-07-21] MEDS: ZINC SULFATE 220 MG CAPSULE PO SCH (10:01)
--- NOTE | 2020-07-21 13:28 | PDOC PROGRESS REPORT ---
Subjective Subjective:: Patient in for intractable back pain and compression fracture of L1 vertebrae. I spoke with pain management Dr. Reynoso today who stated patient is not a candidate for vertebroplasty or kyphoplasty. He recommended patient be put in a TLSO brace and follow-up with neurosurgery in [place] approximately 2 weeks after conservative management for pain. Patient states her pain is significantly improved after getting some gabapentin and low-dose Dilaudid overnight. She has no new complaints today although she does have some emotional lability intermittently. Per family, this is a chronic issue for her. Labs and vitals are stable. Patient is working with PT and after I spoke with the patient's family they are in agreement that the patient would be best served at a SNF. 07/18/2020 Patient is to be doing quite well today overall. I have placed an order yesterday for her back brace although this is not been delivered or fitted to her yet. She states her pain is primarily controlled. I have noted during this admission that she is rather anxious and per my discussion with her family this is an ongoing chronic problem. I have discussed starting Lexapro with her and she is agreeable to this. She may be able to go to [facility] tomorrow if she is accepted and she has her back brace delivered. She has no new complaints today. 07/19/2020 COVID test that was done for SNF placement is now positive. I discussed this with the patient's family at her request and they are currently getting tested as well. Some of them are reportedly positive as well. Also discussed this with nursing so that they can take the appropriate measures to protect themselves with appropriate PPE. I will check recommended COVID labs including d-dimer, lactic acid, CRP, ferritin. I have requested to the pharmacy the p atient be started on remdesivir. Her chest x-ray shows retrocardiac opacity possibly infectious/pneumonia. She had a desaturation into the 80s today. Patient denies any fevers or chills at this time. Patient has no new complaints today. 07/20/2020 Patient does not qualify for remdesivir and she is too clinically stable from a respiratory standpoint. She does not have any oxygen desaturations and is not requiring any supplemental oxygen. Her chest x-ray showed some retrocardiac opacities but otherwise did not show anything overtly specific for overwhelming viral pneumonia. Patient is having some anosmia and dysgeusia which is expected in the setting of coronavirus infection. I had a long talk with the patient and her family regarding the plan going forward. Patient seems to be rather unhappy in the coronavirus isolation unit and she is inquired about going home. I think this is a reasonable plan assuming she continues to do this well by tomorrow. Her family is looking into how to manage her care when she does come home. Alternatively, she could go to the coronavirus SNF in [place] if the family would prefer this and the patient qualifies from a rehab standpoint. Labs and vitals are stable. D-dimer is elevated as well as CRP however her lactic acid and ferritin are normal. Patient has some intermittent worse low back pain but otherwise does not have any new complaints. 07/21/2020 Patient seems to be doing fine today though she intermittently states she is in pain and then later states she has no pain as long as she is not moving around the room. She states she is tolerating Remeron just fine but is not noting any significant improvement just yet. We already discussed that this can take weeks to take full effect. She is not eating and drinking that much because she states her sense of smell has been diminished by coronavirus. We discussed the need for her to eat and drink regularly throughout the day in order to keep up her strength. She is asking to be given IV fluids and I discussed with her that we would only want to do this if she was unable to eat and drink not simply because she is refusing to do so. She agreed with this plan and she also agreed that she would like to go to the SNF in [place] if this can be arranged. Reason For Visit: INTRACTABLE BACK PAIN T2DM HTN Physical Exam Vital Signs: Temp Pulse Resp BP Pulse Ox 97.7 F 76 16 129/52 H 99 07/21/20 07:55 07/21/20 07:55 07/21/20 07:55 07/21/20 07:55 07/21/20 07:55 Intake & Output 07/20/20 07/21/20 07/22/20 06:59 06:59 06:59 Intake Total 118 980 Balance 118 980 Weight 57 kg 59.1 kg General appearance: PRESENT: no acute distress, well-developed, well-nourished Head exam: PRESENT: atraumatic, normocephalic Eye exam: PRESENT: conjunctiva pink Mouth exam: PRESENT: moist Respiratory exam: PRESENT: clear to auscultation damien. ABSENT: rales, rhonchi, wheezes Cardiovascular exam: PRESENT: RRR. ABSENT: diastolic murmur, rubs, systolic murmur GI/Abdominal exam: PRESENT: normal bowel sounds, soft. ABSENT: distended, guarding, mass, organolmegaly, rebound, tenderness Neurological exam: PRESENT: alert, awake, oriented to person, oriented to place, oriented to time, oriented to situation Psychiatric exam: PRESENT: appropriate affect, normal mood Skin exam: PRESENT: dry, intact, warm Results Laboratory Results: 07/21/20 07:28 07/21/20 07:28 07/21/20 07/21/20 07:28 07:28 WBC 5.8 RBC 4.59 Hgb 13.4 Hct 40.3 MCV 88 MCH 29.2 MCHC 33.2 RDW 13.5 Plt Count 221 Seg Neutrophils % 60.0 Sodium 132.9 L Potassium 3.9 Chloride 105 Carbon Dioxide 18 L Anion Gap 10 BUN 12 Creatinine 0.67 Est GFR ( Amer) > 60 Glucose 75 Calcium 8.3 L Impressions: Chest X-Ray 07/19/20 00:00 IMPRESSION: Mild left basilar retrocardiac opacities, possibly infectious/inflammatory. Stable additional course interstitial emphysematous change. Assessment and Plan - Diagnosis (1) Compression fracture of L1 lumbar vertebra Is this a current diagnosis for this admission?: Yes Plan: Seen on MRI lumbar spine Follows with Dr. Espino outpatient Admitted for severe intractable pain Kyphoplasty and vertebroplasty cannot be done due to progression of compression fracture; pain management recommends TLSO brace and conservative oral pain medicine with rehab As needed very low-dose Dilaudid to be used sparingly Gabapentin 100 mg every 8 hours Needs follow-up with spine/neurosurgery in [place] after discharge, dis cussed with patient and family Discharge to [facility] SNF in [place], family in agreement Plan is for SNF transfer to [place], patient also in agreement (2) T2DM (type 2 diabetes mellitus) Qualifiers: Diabetes mellitus chcf insulin use: without chcf use Diabetes mellitus complication status: without complication Qualified Code(s): E11.9 - Type 2 diabetes mellitus without complications Is this a current diagnosis for this admission?: Yes (3) Anxiety Is this a current diagnosis for this admission?: Yes (4) Hyperlipidemia Qualifiers: Hyperlipidemia type: unspecified Qualified Code(s): E78.5 - Hyperlipidemia, unspecified Is this a current diagnosis for this admission?: Yes (5) Hypertension Qualifiers: Hypertension type: essential hypertension Qualified Code(s): I10 - Essential (primary) hypertension Is this a current diagnosis for this admission?: Yes (6) Intractable low back pain Is this a current diagnosis for this admission?: Yes Plan: Pain management as above Consulted Dr. Lyle Patient states that she is not asking for pain medicine but then later complains that she is in pain. Explained to her that she must ask for as needed pain medicine if she is hurting. She states she is fully aware of the as needed pain medicine ordered but she is choosing not to request it (7) COVID-19 virus infection Is this a current diagnosis for this admission?: Yes - Time Time Spent with patient: 35 or more minutes Medications reviewed and adjusted accordingly: Yes Anticipated Discharge Disposition: Long-Term Facility Anticipated Discharge Timeframe: within 48 hours - Inpatient Certification Based on my medical assessment, after consideration of the patient's comorbidities, presenting symptoms, or acuity I expect that the services needed warrant INPATIENT care.: Yes I certify that my determination is in accordance with my understanding of Medicare's requirements for reasonable and necessary INPATIENT services [42 CFR 412.3e].: Yes Medical Necessity: Significant Comorbidiites Make Outpatient Treatment Too Risky, Need Close Monitoring Due to Risk of Patient Decompensation, Need for Pain Control, Risk of Complication if Not Cared For in Hospital, Risk of Diagnosis Which Will Require Inpatient Eval/Care/Monitoring
[2020-07-21] MEDS: ONDANSETRON 4 MG TAB.RAPDIS PO PRN (19:55)
[2020-07-21] MEDS: MIRTAZAPINE 15 MG TABLET PO SCH (23:14)
[2020-07-22] MEDS: HYDROMORPHONE HCL INJ/PF 2 MG/ML AMPULE IV PRN
[2020-07-22] MEDS: GABAPENTIN 100 MG CAPSULE PO SCH ×2 (01:34→09:41)
[2020-07-22] MEDS: INSULIN LISPRO 100 UNIT/ML 3 ML VIAL SUBCUT SCH ×2 (08:42→12:37)
[2020-07-22] MEDS: CHOLECALCIFEROL (D3) 1,000 UNIT (25 MCG) TABLET PO SCH (09:40)
[2020-07-22] MEDS: ZINC SULFATE 220 MG CAPSULE PO SCH (09:41)
[2020-07-22] MEDS: OMEGA-3 ACID ETHYL ESTERS 1 GM CAPSULE PO SCH (09:41)
[2020-07-22] MEDS: ASCORBIC ACID 500 MG TABLET PO SCH (09:41)
[2020-07-22] MEDS: ASPIRIN 81 MG TABLET, ENT COATED PO SCH (09:41)
[2020-07-22] MEDS: ATORVASTATIN CALCIUM 40 MG TABLET PO SCH (09:41)
[2020-07-22] MEDS: METOPROLOL TARTRATE 50 MG TABLET PO SCH (09:41)
[2020-07-22] MEDS: ENOXAPARIN SODIUM INJ 40 MG/0.4 ML DISP.SYRIN SUBCUT SCH (09:41)
[2020-07-22] MEDS: METFORMIN HCL 500 MG TABLET PO SCH (09:41)
[2020-07-22] MEDS: SITAGLIPTIN PHOSPHATE 50 MG TABLET PO SCH (09:41)
--- NOTE | 2020-07-22 12:32 | PDOC TRANSFER SUMMARY ---
Impression - Admit/DC Date/PCP Admission Date/Primary Care Provider: 07/16/20 17:51 SLOANE CERDA MD Discharge Date: 07/22/20 - Discharge Diagnosis (1) Compression fracture of L1 lumbar vertebra Is this a current diagnosis for this admission?: Yes (2) T2DM (type 2 diabetes mellitus) Is this a current diagnosis for this admission?: Yes (3) Anxiety Is this a current diagnosis for this admission?: Yes (4) Hyperlipidemia Is this a current diagnosis for this admission?: Yes (5) Hypertension Is this a current diagnosis for this admission?: Yes (6) Intractable low back pain Is this a current diagnosis for this admission?: Yes (7) COVID-19 virus infection Is this a current diagnosis for this admission?: Yes - Additional Information Resuscitation Status: Full Code Discharge Diet: As Tolerated, Diabetic Discharge Activity: Activity As Tolerated, Balance Activity w/Rest Referrals: SLOANE CERDA MD [Primary Care Provider] - Prescriptions: Hydromorphone HCl [Dilaudid 2 mg Tablet] 0.5 mg PO Q8HP PRN #10 tablet PRN Reason: moderate to severe pain Home Medications: Aspirin [Adult Low Dose Aspirin EC] 81 mg PO DAILY 09/21/15 Atorvastatin Calcium [Lipitor 40 mg Tablet] 40 mg PO DAILY 09/21/15 Metoprolol Tartrate [Lopressor] 50 mg PO Q12 09/21/15 Hampden-3 Fatty Acids [[place]den-3] 1,000 mg PO DAILY 09/21/15 Sitagliptin Phos/Metformin HCl [Janumet 50-1,000 mg Tablet] 1 each PO DAILY 09/21/15 Cholecalciferol (Vitamin D3) [Vitamin D3] 1,000 mg PO DAILY 07/08/20 Acetaminophen [Tylenol 325 mg Tablet] 650 mg PO Q4HP PRN 07/17/20 Ubidecarenone [Coq-10] 100 mg PO DAILY 07/17/20 Ascorbic Acid [Vitamin C 500 mg Tablet] 500 mg PO BID tablet 07/22/20 Gabapentin [Neurontin 100 mg Capsule] 100 mg PO Q8A capsule 07/22/20 Hydromorphone HCl [Dilaudid 2 mg Tablet] 0.5 mg PO Q8HP PRN #10 tablet 07/22/20 Mirtazapine [Remeron 15 mg Tablet] 15 mg PO QHS tablet 07/22/20 Zinc Sulfate [Zinc-220 Capsule] 220 mg PO DAILY capsule 07/22/20 History of Present Illiness History of Present Illness: MANNY RENTERIA is a 85 year old female with past medical history significant for HTN, HLD, T2DM who presents to the ED with 2 weeks of severe progressive low back pain radiating to her left hip which patient states began suddenly while she was working in her yard. Patient came to ED reportedly 3 times over the past few weeks and was sent home each time with pain medications and follow-up. Patient was also admitted on 07/08 and discharged on 07/14 for similar back pain episode. Patient had seen her orthopedist last week who had ordered an MRI of her lumbar spine which showed a acute L1 compression fracture. Patient was instructed to go to the ED for admission and kyphoplasty unfortunately this did not happen. Today, patient is having another episode of severe pain and she was seen in her PCP office who recommended patient go to the ER and get admitted after PCP had spoken with Dr. Espino about the MRI results. Patient started on very low-dose Dilaudid as needed with scheduled gabapentin. Hospital Course Hospital Course: Patient in for intractable back pain and compression fracture of L1 vertebrae. I spoke with pain management Dr. Reynoso today who stated patient is not a candidate for vertebroplasty or kyphoplasty. He recommended patient be put in a TLSO brace and follow-up with neurosurgery in [place] approximately 2 weeks after conservative management for pain. Patient states her pain is significantly improved after getting some gabapentin and low-dose Dilaudid overnight. She has no new complaints today although she does have some emotional lability intermittently. Per family, this is a chronic issue for her. Labs and vitals are stable. Patient is working with PT and after I spoke with the patient's family they are in agreement that the patient would be best served at a SNF. 07/18/2020 Patient is to be doing quite well today overall. I have placed an order yesterday for her back brace although this is not been delivered or fitted to her yet. She states her pain is primarily controlled. I have noted during this admission that she is rather anxious and per my discussion with her family this is an ongoing chronic problem. I have discussed starting Lexapro with her and she is agreeable to this. She may be able to go to [facility] tomorrow if she is accepted and she has her back brace delivered. She has no new complaints today. 07/19/2020 COVID test that was done for SNF placement is now positive. I discussed this with the patient's family at her request and they are currently getting tested as well. Some of them are reportedly positive as well. Also discussed this with nursing so that they can take the appropriate measures to protect themselves with appropriate PPE. I will check recommended COVID labs including d-dimer, lactic acid, CRP, ferritin. I have requested to the pharmacy the patient be started on remdesivir. Her chest x-ray shows retrocardiac opacity possibly infectious/pneumonia. She had a desaturation into the 80s today. Patient denies any fevers or chills at this time. Patient has no new complaints today. 07/20/2020 Patient does not qualify for remdesivir and she is too clinically stable from a respiratory standpoint. She does not have any oxygen desaturations and is not requiring any supplemental oxygen. Her chest x-ray showed some retrocardiac opacities but otherwise did not show anything overtly specific for overwhelming viral pneumonia. Patient is having some anosmia and dysgeusia which is expected in the setting of coronavirus infection. I had a long talk with the patient and her family regarding the plan going forward. Patient seems to be rather unhappy in the coronavirus isolation unit and she is inquired about going home. I think this is a reasonable plan assuming she continues to do this well by tomorrow. Her family is looking into how to manage her care when she does come home. Alternatively, she could go to the coronavirus SNF in [place] if the family would prefer this and the patient qualifies from a rehab standpoint. Labs and vitals are stable. D-dimer is elevated as well as CRP however her lactic acid and ferritin are normal. Patient has some intermittent worse low back pain but otherwise does not have any new complaints. 07/21/2020 Patient seems to be doing fine today though she intermittently states she is in pain and then later states she has no pain as long as she is not moving around the room. She states she is tolerating Remeron just fine but is not noting any significant improvement just yet. We already discussed that this can take weeks to take full effect. She is not eating and drinking that much because she states her sense of smell has been diminished by coronavirus. We discussed the need for her to eat and drink regularly throughout the day in order to keep up her strength. She is asking to be given IV fluids and I discussed with her that we would only want to do this if she was unable to eat and drink not simply because she is refusing to do so. She agreed with this plan and she also agreed that she would like to go to the SNF in [place] if this can be arranged. Patient ready for discharge on 07/22. She is accepted to a SNF in [place] and she and her family are in agreement this is the best course of action for her recovery. Patient is in good spirits and is hopeful that a short stay in rehab will improve her functional abilities and prevent future falls and injuries. She understands that she must follow-up with her PCP and spine surgeon. If her pain continues to be uncontrolled and she is not a surgical candidate, she may want to follow-up with a pain management office as well. I do believe she would benefit from seeing a psychiatrist at some point in the future as she does struggle with anxiety and depression per my discussions with her. - Diagnosis (1) Compression fracture of L1 lumbar vertebra Is this a current diagnosis for this admission?: Yes Plan: Seen on MRI lumbar spine Follows with Dr. Espino outpatient Admitted for severe intractable pain Kyphoplasty and vertebroplasty cannot be done due to progression of compression fracture; pain management recommends TLSO brace and conservative oral pain medicine with rehab As needed very low-dose Dilaudid to be used sparingly, prescribed low-dose oral Dilaudid at discharge which should be used as a tool to help her go further with her physical therapy. Gabapentin 100 mg every 8 hours Needs follow-up with spine/neurosurgery in [place] after discharge, discussed with patient and family Plan is for SNF transfer to [place], patient also in agreement (2) T2DM (type 2 diabetes mellitus) Qualifiers: Diabetes mellitus fci insulin use: without tank terminal gauger use Diabetes mellitus complication status: without complication Qualified Code(s): E11.9 - Type 2 diabetes mellitus without complications Is this a current diagnosis for this admission?: Yes (3) Anxiety Is this a current diagnosis for this admission?: Yes Started on Remeron, will need to be followed by PCP and/or psychiatrist for any needed dose adjustments and monitoring for side effects (4) Hyperlipidemia Qualifiers: Hyperlipidemia type: unspecified Qualified Code(s): E78.5 - Hyperlipidemia, unspecified Is this a current diagnosis for this admission?: Yes (5) Hypertension Qualifiers: Hypertension type: essential hypertension Qualified Code(s): I10 - Essential (primary) hypertension Is this a current diagnosis for this admission?: Yes (6) Intractable low back pain Is this a current diagnosis for this admission?: Yes Plan: Pain management as above Consulted Dr. Lyle, patient is not a candidate for kyphoplasty/vertebroplasty due to progression of the fracture Patient states that she is sometimes not asking for pain medicine but then later complains that she is in pain. Explained to her that she must ask for as needed pain medicine if she is hurting. She states she is fully aware of the as needed pain medicine ordered but she is choosing not to request it sometimes (7) COVID-19 virus infection Is this a current diagnosis for this admission?: Yes No significant respiratory symptoms, only significant symptom seems to be anosmia which should resolve over the next few weeks Physical Exam Vital Signs: Temp Pulse Resp BP Pulse Ox 97.7 F 70 19 150/72 H 94 07/22/20 08:18 07/22/20 08:18 07/22/20 08:18 07/22/20 08:18 07/22/20 08:18 Intake & Output 07/21/20 07/22/20 07/23/20 06:59 06:59 06:59 Intake Total 980 546 Balance 980 546 Weight 59.1 kg 58.2 kg General appearance: PRESENT: no acute distress, well-developed, well-nourished Head exam: PRESENT: atraumatic, normocephalic Eye exam: PRESENT: conjunctiva pink, EOMI, PERRLA. ABSENT: scleral icterus Mouth exam: PRESENT: moist Respiratory exam: PRESENT: clear to auscultation damien. ABSENT: rales, rhonchi, wheezes Cardiovascular exam: PRESENT: RRR. ABSENT: diastolic murmur, rubs, systolic murmur GI/Abdominal exam: PRESENT: normal bowel sounds, soft. ABSENT: distended, guarding, mass, organolmegaly, rebound, tenderness Extremities exam: ABSENT: pedal edema Neurological exam: PRESENT: alert, awake, oriented to person, oriented to place, oriented to time, oriented to situation, CN II-XII grossly intact. ABSENT: motor sensory deficit Psychiatric exam: PRESENT: appropriate affect, normal mood Skin exam: PRESENT: dry, intact, warm Results Laboratory Results: WBC 5.8 10^3/uL (4.0-10.5) 07/21/20 07:28 RBC 4.59 10^6/uL (3.72-5.28) 07/21/20 07:28 Hgb 13.4 g/dL (12.0-15.5) 07/21/20 07:28 Hct 40.3 % (36.0-47.0) 07/21/20 07:28 MCV 88 fl (80-97) 07/21/20 07: MCH 29.2 pg (27.0-33.4) 07/21/20 07: MCHC 33.2 g/dL (32.0-36.0) 07/21/20 07: RDW 13.5 % (11.5-14.0) 07/21/20 07:28 Plt Count 221 10^3/uL (150-450) 07/21/20 07:28 Lymph % (Auto) 26.5 % (13-45) 07/21/20 07:28 [place] % (Auto) 11.8 % (3-13) 07/21/20 07:28 Eos % (Auto) 1.0 % (0-6) 07/21/20 07:28 Baso % (Auto) 0.7 % (0-2) 07/21/20 07:28 Absolute Neuts (auto) 3.5 10^3/uL (1.7-8.2) 07/21/20 07:28 Absolute Lymphs (auto) 1.5 10^3/uL (0.5-4.7) 07/21/20 07:28 Absolute Monos (auto) 0.7 10^3/uL (0.1-1.4) 07/21/20 07:28 Absolute Eos (auto) 0.1 10^3/uL (0.0-0.6) 07/21/20 07:28 Absolute Basos (auto) 0.0 10^3/uL (0.0-0.2) 07/21/20 07:28 Seg Neutrophils % 60.0 % (42-78) 07/21/20 07:28 D-Dimer 2.35 ug/mL (0.00-0.50) H 07/19/20 16:32 Sodium 132.9 mmol/L (137-145) L 07/21/20 07:28 Potassium 3.9 mmol/L (3.6-5.0) 07/21/20 07:28 Chloride 105 mmol/L (98-107) 07/21/20 07:28 Carbon Dioxide 18 mmol/L (22-30) L 07/21/20 07:28 Anion Gap 10 (5-19) 07/21/20 07:28 BUN 12 mg/dL (7-20) 07/21/20 07:28 Creatinine 0.67 mg/dL (0.52-1.25) 07/21/20 07:28 Est GFR ( Amer) > 60 (>60) 07/21/20 07:28 Est GFR (MDRD) Non-Af > 60 (>60) 07/21/20 07:28 Glucose 75 mg/dL (75-110) 07/21/20 07:28 POC Glucose 78 mg/dL (70-110) 07/22/20 08:18 Lactic Acid 1.6 mmol/L (0.7-2.1) 07/19/20 16:32 Calcium 8.3 mg/dL (8.4-10.2) L 07/21/20 07:28 Phosphorus 4.3 mg/dL (2.5-4.5) 07/17/20 04:12 Magnesium 2.0 mg/dL (1.6-2.3) 07/17/20 04:12 Ferritin 199.00 ng/mL (11.1-264.0) 07/19/20 16:32 Total Bilirubin 0.5 mg/dL (0.2-1.3) 07/19/20 11:09 Direct Bilirubin 0.0 mg/dL (0.0-0.4) 07/19/20 11:09 Neonat Total Bilirubin Not Reportable 07/19/20 11:09 Neonat Direct Bilirubin Not Reportable 07/19/20 11:09 Neonat Indirect Bili Not Reportable 07/19/20 11:09 AST 29 U/L (14-36) 07/19/20 11:09 ALT 16 U/L (<35) 07/19/20 11:09 Alkaline Phosphatase 98 U/L (38-126) 07/19/20 11:09 C-Reactive Protein 33.1 mg/L (<10.0) H 07/19/20 16:32 Total Protein 6.4 g/dL (6.3-8.2) 07/19/20 11:09 Albumin 3.4 g/dL (3.5-5.0) L 07/19/20 11:09 COVID-19 Source NASOPHARYNGEAL 07/17/20 12:15 COVID-19 (CECILIA) DETECTED H 07/17/20 12:15 Impressions: Chest X-Ray 07/19/20 00:00 IMPRESSION: Mild left basilar retrocardiac opacities, possibly infectious/inflammatory. Stable additional course interstitial emphysematous change. Plan Plan of Treatment: FU with PCP FU with Spine Surgery Time Spent: Greater than 30 Minutes Stroke Is this a Stroke Patient?: No Acute Heart Failure - Is this a Heart Failure Patient?: No
[2020-07-22 13:05] VITALS: BP 108/49
== END 2020-07-22 14:59 | DRG 551 ==
LOC: 5TH 17:51 → 5 18:30 → 3N 07-19 17:16
PROVIDERS: ADMIT Internal Medicine; ATTEND Internal Medicine
DX: S32.019A Unspecified fracture of first lumbar vertebra, initial encounter for closed fracture (principal); U07.1 COVID-19; X58.XXXA Exposure to other specified factors, initial encounter; E11.9 Type 2 diabetes mellitus without complications; F41.9 Anxiety disorder, unspecified; E78.5 Hyperlipidemia, unspecified; I10 Essential (primary) hypertension; Z79.84 Long term (current) use of oral hypoglycemic drugs; R43.2 Parageusia; R43.0 Anosmia; Y93.H2 Activity, gardening and landscaping
CPT/HCPCS: 36415; 71045; 80048; 80076; 82728; 82962; 83605; 83735; 84100; 85025; 85379; 86140; 87635; C9803; J1170; J1650; J1815; J2405; J3490; L4386; S0119

== ENCOUNTER 2020-08-14 11:03 | Inpatient (IN) | payer MEDICARE, OTHER ==
[2020-08-14] MEDS ORDERED: NORMAL SALINE 1000 ML 1,000 ML IV ONE (11:28)
--- NOTE | 2020-08-14 12:17 | RADIOLOGY REPORT (SQ) ---
EXAM DESCRIPTION: CT ABD/PELVIS NO ORAL OR IV IMAGES COMPLETED DATE/TIME: 08/14/2020 11:55 am REASON FOR STUDY: right flank pain COMPARISON: 07/05/2020 and 07/12/2020 TECHNIQUE: CT scan of the abdomen and pelvis performed without intravenous or oral contrast. Images reviewed with lung, soft tissue, and bone windows. Reconstructed coronal and sagittal MPR images revi ewed. All images stored on PACS. All CT scanners at this facility use dose modulation, iterative reconstruction, and/or weight based d osing when appropriate to reduce radiation dose to as low as reasonably achievable (ALARA). [facility]: Dose Right [facility]: CareDose [facility]: Dose Right [facility]: Teradose 4D [facility]: Smart Garena RADIATION DOSE: CT Rad equipment meets quality standard of care and radiation dose reduction techniq ues were employed. CTDIvol: 5.0 mGy. DLP: 267 mGy-cm.mGy. LIMITATIONS: None. FINDINGS: LOWER CHEST: Subtle peripheral mixed interstitial and airspace opacities are seen of the l matt bases. Re- demonstration of a lingular pneumatocele. No pleural effusion. No pneumothorax. NON-CONTRASTED LIVER, SPLEEN, ADRENALS: Evaluation limited by lack of IV contrast. No identified sign ificant masses. Few scattered hepatic calcifications. PANCREAS: No masses. No peripancreatic inflammatory changes. GALLBLADDER: No identified stones by CT criteria. No inflammatory changes to suggest cholecystitis. RIGHT KIDNEY AND URETER: No suspicious masses. 2.0 cm simple cyst. Assessment limited by lack of IV c ontrast. No significant calcifications. No hydronephrosis or hydroureter. LEFT KIDNEY AND URETER: No suspicious masses. Assessment limited by lack of IV contrast. Single coa rse parenchymal calcification. No hydronephrosis or hydroureter. AORTA AND RETROPERITONEUM: No aneurysm. No retroperitoneal masses or adenopathy. BOWEL AND PERITONEAL CAVITY: Scattered colonic diverticula without focal inflammatory changes. APPENDIX: Not visualized. PELVIS, BLADDER, AND ABDOMINAL WALL:No abnormal masses. No free fluid. Bladder normal. BONES: Progression in a previously demonstrated L1 vertebral body compression deformity with retropul sed component. Background of osteopenia and degenerative changes. OTHER: No other significant finding. IMPRESSION: 1. No evidence of urolithiasis or obstructive uropathy. 2. L1 vertebral body compression deformity with retropulsed component is progressed relative to 07/12 MR imaging. COMMENT: Quality ID # [id number]: Final reports with documentation of one or more dose reduction techniques (e.g., Automated exposure control, adjustment of the mA and/or kV according to patient size, use of iterative reconstruction technique) TECHNICAL DOCUMENTATION: JOB ID: [id number] 2010 [employer]- All Rights Reserved Reading location - IP/workstation name: [email or web address]
[2020-08-14 12:34] LABS: VENOUS BLOOD BASE EXCESS 1.2 mmol/L; VENOUS BLOOD HCO3 26.6 mmol/L (20-32); VENOUS BLOOD PCO2 45.1 mmHg (35-63); VENOUS BLOOD PH 7.39 (7.30-7.42)
[2020-08-14 12:35] LABS: ABSOLUTE BASOPHILS # (AUTO) 0.1 10^3/uL (0.0-0.2); ABSOLUTE EOSINOPHILS # (AUTO) 0.1 10^3/uL (0.0-0.6); ABSOLUTE LYMPHOCYTES (AUTO) 1.2 10^3/uL (0.5-4.7); ABSOLUTE MONOCYTES (AUTO) 0.5 10^3/uL (0.1-1.4); ABSOLUTE NEUT (AUTO) 6.1 10^3/uL (1.7-8.2); BASOPHILS % (AUTO) 0.9 % (0-2); EOSINOPHILS % (AUTO) 1.8 % (0-6); HEMATOCRIT 37.7 % (36.0-47.0); HEMOGLOBIN 12.7 g/dL (12.0-15.5); LYMPHOCYTES % (AUTO) 14.9 % (13-45); MEAN CORPUSCULAR HEMOGLOBIN 29.5 pg (27.0-33.4); MEAN CORPUSCULAR HGB CONC 33.7 g/dL (32.0-36.0); MEAN CORPUSCULAR VOLUME 88 fl (80-97); MONOCYTES % (AUTO) 6.3 % (3-13); PLATELET COUNT 258 10^3/uL (150-450); RED CELL DISTRIBUTION WIDTH 14.8 % (11.5-14.0); SEGMENTED NEUTROPHILS % (AUTO) 76.1 % (42-78); TOTAL CELLS COUNTED % (AUTO) 100 %
[2020-08-14 12:43] LABS: INTERNATIONAL RATION (INR) 0.99; PROTHROMBIN TIME 13.3 SEC (11.4-15.4)
--- NOTE | 2020-08-14 12:48 | RADIOLOGY REPORT (SQ) ---
EXAM DESCRIPTION: CHEST SINGLE VIEW IMAGES COMPLETED DATE/TIME: 08/14/2020 12:37 pm REASON FOR STUDY: cough/positive covid COMPARISON: 07/19/2020 EXAM PARAMETERS: NUMBER OF VIEWS: One view. TECHNIQUE: Single frontal radiographic view of the chest acquired. RADIATION DOSE: NA LIMITATIONS: None. FINDINGS: LUNGS AND PLEURA: Hyper aeration with flattening of the hemidiaphragms. Chronically incre ased interstitial markings at the lung bases. No focal consolidation, pleural effusion, or pneumotho rax. MEDIASTINUM AND HILAR STRUCTURES: No masses. Contour normal. HEART AND VASCULAR STRUCTURES: Heart normal in size. Normal vasculature. BONES: No acute findings. Chronic right clavicular fracture. HARDWARE: None in the chest. OTHER: No other significant finding. IMPRESSION: No evidence of acute cardiopulmonary abnormality. TECHNICAL DOCUMENTATION: JOB ID: [id number] 2010 [employer]- All Rights Reserved Reading location - IP/workstation name: [email or web address]
[2020-08-14 12:58] LABS: ALBUMIN 3.8 g/dL (3.5-5.0); ALKALINE PHOSPHATASE 669 U/L (38-126); ANION GAP 11 (5-19); BILIRUBIN,DIRECT 1.1 mg/dL (0.0-0.4); BILIRUBIN,TOTAL 1.7 mg/dL (0.2-1.3); BLOOD UREA NITROGEN 8 mg/dL (7-20); CALCIUM 9.3 mg/dL (8.4-10.2); CARBON DIOXIDE 25 mmol/L (22-30); CHLORIDE 101 mmol/L (98-107); GLUCOSE 180 mg/dL (75-110); POTASSIUM 4.3 mmol/L (3.6-5.0); TOTAL PROTEIN 6.8 g/dL (6.3-8.2)
[2020-08-14 13:04] LABS: ASPARTATE AMINO TRANSFERASE 717 U/L (14-36)
[2020-08-14] MEDS ORDERED: MORPHINE SULFATE 10 MG/ML INJ IV ONE ×2 (13:32→15:39)
--- NOTE | 2020-08-14 15:10 | RADIOLOGY REPORT (SQ) ---
EXAM DESCRIPTION: U/S ABDOMEN LIMITED W/O DOP IMAGES COMPLETED DATE/TIME: 08/14/2020 3:01 pm REASON FOR STUDY: pain/elevated lfts' COMPARISON: None. TECHNIQUE: Dynamic and static grayscale images acquired of the abdomen and recorded on PACS. Additio nal selected color Doppler and spectral images recorded. LIMITATIONS: None. FINDINGS: PANCREAS: Visualized portions the pancreas are normal in appearance. LIVER: No masses. Echotexture normal. LIVER VASCULATURE: Normal directional flow of the main portal vein and hepatic veins. GALLBLADDER: No stones. Normal wall thickness. No pericholecystic fluid. ULTRASOUND-DETECTED FERRIS'S SIGN: Negative. INTRAHEPATIC DUCTS AND COMMON DUCT: CBD and intrahepatic ducts normal caliber. No filling defects. AORTA: No aneurysm. RIGHT KIDNEY: Simple right renal cyst is noted. No hydronephrosis. PERITONEAL AND RIGHT PLEURAL SPACE: No ascites or effusions. OTHER: No other significant findings. IMPRESSION: No acute findings. Simple right renal cyst. TECHNICAL DOCUMENTATION: JOB ID: [id number] 2010 [employer]- All Rights Reserved Reading location - IP/workstation name: [email or web address]
--- NOTE | 2020-08-14 15:33 | ER Document Report ---
ED General - General Chief Complaint: Back Pain Stated Complaint: FLANK PAIN Time Seen by Provider: 08/14/20 11:13 Primary Care Provider: SLOANE CERDA MD [Primary Care Provider] - Follow up as needed Information source: Patient TRAVEL OUTSIDE OF THE [place] IN LAST 30 DAYS: No - HPI Notes: Patient presents with left flank pain. She states is been going on for several days. It is constant. Is worse with movement and better with rest. It is an aching sensation and moderate to severe in intensity. She has had some nausea with it. No known vomiting or diarrhea. No known trauma. No fevers. No trouble with urination. Patient is somewhat of a poor historian secondary to confusion. - Related Data Allergies/Adverse Reactions: No Known Drug Allergies Allergy (Verified 07/08/20 12:01) Past Medical History - General Information source: Patient - Social History Smoking Status: Former Smoker Chew tobacco use (# tins/day): No Frequency of alcohol use: None Drug Abuse: None Family History: CAD, CVA, DM, Hypertension, Malignancy Patient has homicidal ideation: No - Past Medical History Cardiac Medical History: Reports: Hx Hypercholesterolemia, Hx Hypertension Denies: Hx Congestive Heart Failure, Hx Coronary Artery Disease, Hx Heart Attack Pulmonary Medical History: Denies: Hx Asthma, Hx Bronchitis, Hx COPD Neurological Medical History: Denies: Hx Migraine Endocrine Medical History: Reports: Hx Diabetes Mellitus Type 2 Renal/ Medical History: Denies: Hx Peritoneal Dialysis GI Medical History: Reports: Hx Gastroesophageal Reflux Disease Musculoskeletal Medical History: Reports Hx Arthritis Psychiatric Medical History: Denies: Hx Depression - Immunizations Immunizations up to date: Yes Hx Diphtheria, Pertussis, Tetanus Vaccination: Yes Review of Systems - Review of Systems Constitutional: denies: Chills, Fever Cardiovascular: denies: Chest pain, Palpitations Respiratory: denies: Cough, Short of breath -: Yes All other systems reviewed and negative Physical Exam - Vital signs Vitals: Resp 22 H 08/14/20 11:40 Interpretation: Normal - General General appearance: Appears well, Alert - HEENT Head: Normocephalic, Atraumatic Eyes: Normal Pupils: PERRL - Respiratory Respiratory status: No respiratory distress Chest status: Nontender Breath sounds: Normal Chest palpation: Normal - Cardiovascular Rhythm: Regular Heart sounds: Normal auscultation Murmur: No - Abdominal Inspection: Normal Distension: No distension Bowel sounds: Normal Tenderness: Tender - Patient is tender in the right upper quadrant Organomegaly: No organomegaly - Back Back: Normal, Tender - Right flank is tender - Extremities General upper extremity: Normal inspection, Nontender, Normal color, Normal ROM, Normal temperature General lower extremity: Normal inspection, Nontender, Normal color, Normal ROM, Normal temperature, Normal weight bearing. No: Nelly's sign - Neurological Cognition: Confused Orientation: Disoriented to time [place]lin Coma Scale Eye Opening: Spontaneous [place] Coma Scale Verbal: Confused [place] Coma Scale Motor: Obeys Commands [place] Coma Scale Total: 14 Speech: Normal Motor strength normal: LUE, RUE, LLE, RLE Sensory: Normal - Psychological Associated symptoms: Confused, Restlessness - Skin Skin Temperature: Warm Skin Moisture: Dry Skin Color: Normal Course - Re-evaluation Re-evalutation: 08/14/20 15:40 Patient has 2 possibilities for her back pain. She has significantly abnormal LFTs consistent with a possible common bile duct stone. Both CT and ultrasound show no significant abnormalities in the right upper quadrant however her laboratory values seem to suggest a common bile duct stone. Therefore an MRCP has been ordered. Patient also has a L1 compression fracture that appears worse than the previous scan done in June. An MRI of this is also pending. I will turn pt over to Dr. Mitchell who will follow up on MRI's and determine final dispo - Vital Signs Vital signs: Temp Pulse Resp BP Pulse Ox 98.1 F 19 143/83 H 93 08/14/20 12:22 08/14/20 15:01 08/14/20 15:00 08/14/20 15:01 - Laboratory Result Diagrams: 08/14/20 12:13 08/14/20 12:13 Laboratory results interpreted by me: 08/14/20 08/14/20 12:13 12:13 RDW 14.8 H Glucose 180 H Total Bilirubin 1.7 H Direct Bilirubin 1.1 H AST 717 H ALT 565 H Alkaline Phosphatase 669 H - Diagnostic Test Radiology reviewed: Image reviewed, Reports reviewed - EKG Interpretation by Me EKG shows normal: Sinus rhythm Rate: Tachycardia - 105 Rhythm: NSR Heart block present: No: 1st Degree, Mobitz 1, Mobitz 2 When compared to previous EKG there are: No significant change Discharge - Discharge Clinical Impression: Hepatitis Compression fracture of L1 lumbar vertebra Qualifiers: Encounter type: subsequent encounter Fracture healing: with nonunion Qualified Code(s): S32.010K - Wedge compression fracture of first lumbar vertebra, subsequent encounter for fracture with nonunion Condition: Serious Disposition: OTHER Referrals: SLOANE CERDA MD [Primary Care Provider] - Follow up as needed
[2020-08-14 15:57] LABS: APPEARANCE,URINE CLEAR; BILIRUBIN,URINE NEGATIVE (NEGATIVE); COLOR,URINE YELLOW; GLUCOSE, URINE NEGATIVE (NEGATIVE); KETONES,URINE 20 mg/dL (NEGATIVE); PROTEIN,URINE NEGATIVE (NEGATIVE); URINE SPECIFIC GRAVITY 1.011
--- NOTE | 2020-08-14 19:00 | RADIOLOGY REPORT (SQ) ---
EXAM DESCRIPTION: MRI ABDOMEN WITHOUT IMAGES COMPLETED DATE/TIME: 08/14/2020 6:35 pm REASON FOR STUDY: abd pain/lft increase/need mrcp COMPARISON: 08/14/2020 CT and ultrasound imaging. TECHNIQUE: Noncontrast MRCP. Source and MIP images reviewed. LIMITATIONS: None. FINDINGS: GALLBLADDER: Normal. INTRAHEPATIC DUCTS: Nondilated. EXTRAHEPATIC DUCTS: Common duct is normal caliber. No dilatation of the pancreatic duct. No ductal filling defects noted. PANCREAS: Generally homogeneous, no gross mass or significant signal alteration. No surrounding infl ammatory changes or fluid. Pancreatic duct is normal. LIVER, SPLEEN, KIDNEYS, ADRENALS: No significant abnormality. Re- demonstration of a right renal cys t VESSELS: No evidence of aneurysm. Grossly appropriate flow voids in the major vascular structures. LUNG BASES: Grossly clear. OTHER: Incidental note is made of a 3.7 cm left ovarian cyst; this is almost certainly a benign findi ng. IMPRESSION: NORMAL HEPATOBILIARY SYSTEM. NO STONES OR COMMON DUCT ABNORMALITIES. CHRONIC AND INCIDE NTAL FINDINGS INCLUDE A 3.7 CM LEFT OVARIAN CYST. GIVEN POSTMENOPAUSAL STATE, RECOMMEND FOLLOW-UP SO NOGRAPHIC EVALUATION IN 12 MONTHS. TECHNICAL DOCUMENTATION: JOB ID: [id number] 2010 [employer]- All Rights Reserved Reading location - IP/workstation name: [email or web address]
--- NOTE | 2020-08-14 19:09 | RADIOLOGY REPORT (SQ) ---
EXAM DESCRIPTION: MRI LUMBAR SPINE WITHOUT IMAGES COMPLETED DATE/TIME: 08/14/2020 6:35 pm REASON FOR STUDY: abd pain/lft increase/need mrcp COMPARISON: 07/12/2020 MRI TECHNIQUE: Sagittal and Axial imaging includes T1, T2, STIR and gradient echo sequences. Coronal T2/ HASTE imaging. LIMITATIONS: None. FINDINGS: VISUALIZED UPPER ABDOMEN: Limited evaluation. No acute or suspicious findings suggested. SEGMENTATION: No transitional anatomy. The lowest well-developed disc space is labeled L5-S1. ALIGNMENT: Anatomic. VERTEBRAE: Progression and neck a previously demonstrated L1 vertebral body compression injury with i ncreased retropulsed component now extending approximately 9 mm into the central canal and resulting in near complete effacement of the CSF signal. BONE MARROW: No infiltrative process. Edema is seen of the L1 vertebral body. Trace subcortical les ma is seen of the S1 superior endplate. DISC SIGNAL: Intervertebral disc desiccation and loss of height are seen predominantly at the L3/4 le alyssia. POSTERIOR ELEMENTS: Generally intact. No pars defect evident. HARDWARE: None in the spine. CORD AND CONUS: Normal in size and signal intensity. Conus at the appropriate level. SOFT TISSUES: No aortic aneurysm seen. No bulky retroperitoneal adenopathy or mass. No paraspinal mas s or fluid. L1-L2: Compression deformity retropulsion results in moderate to severe right, severe left neural for aminal stenosis. The central canal remains widely patent at the level of the disc. L2-L3: No significant spinal stenosis or exit foraminal stenosis. L3-L4: Broad-based posterior disc bulge in the setting of facet arthropathy results an mild bilateral neural foraminal narrowing. The central canal remains patent. L4-L5: Shallow, broad-based posterior disc bulge without significant central canal or neural foramina l stenosis. L5-S1: Shallow, broad-based posterior disc bulge in the setting of facet arthropathy without signific ant central canal or neural foraminal stenosis. LOWER THORACIC: L1 vertebral body compression deformity retropulsion results in severe bilateral neur al foraminal stenosis at the T12/L1 level. The central canal remains patent at the level of the disc . SACRUM: Visualized upper sacrum intact. OTHER: No other significant findings. IMPRESSION: Progression in a previously demonstrated L1 vertebral body compression deformity with in creased retropulsion resulting in near complete effacement of the CSF signal at this level. This als o effects significant neural foraminal stenosis at the T12/L1 and L1/2 levels as detailed above. TECHNICAL DOCUMENTATION: JOB ID: [id number] 2010 [employer]- All Rights Reserved Reading location - IP/workstation name: [email or web address]
--- NOTE | 2020-08-14 19:12 | EKG REPORT ---
SEVERITY:- ABNORMAL ECG - SINUS TACHYCARDIA PROBABLE INFERIOR INFARCT, AGE INDETERMINATE CONSIDER POSTERIOR WALL INVOLVEMENT : Confirmed by: Modesto Watkins 14-Aug-2020 19:11:32
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
--- NOTE | 2020-08-14 20:11 | ER Document Report ---
Doctor's Note Notes: 08/14/20 20:10 Patient to be admitted to the hospitalist service to medical floor
[2020-08-14] MEDS ORDERED: ONDANSETRON HCL INJ/PF 4 MG/2 ML SDV IV PRN (21:58)
[2020-08-14] MEDS ORDERED: LEVALBUTEROL HCL NEB 0.63 MG/3 ML AMPUL NEB PRN (21:58)
[2020-08-14] MEDS ORDERED: MAG HYDROX/AL HYDROX/SIMETH SUSP 30 ML UDCUP PO PRN (21:58)
[2020-08-14] MEDS ORDERED: RINGERS SOLUTION,LACTATED 1,000 ML IV PRN (21:58)
[2020-08-14] MEDS ORDERED: MAGNESIUM HYDROXIDE SUSP 30 ML UDCUP PO PRN (21:58)
[2020-08-14] MEDS ORDERED: GUAIFENESIN SYRP 200 MG/10 ML UDC PO PRN (22:05)
[2020-08-14] MEDS ORDERED: ACETAMINOPHEN 325 MG TABLET PO PRN (22:05)
[2020-08-14] MEDS ORDERED: MORPHINE SULFATE 10 MG/ML INJ IV PRN ×4 (22:05→22:20)
[2020-08-14] MEDS ORDERED: GLUCAGON,HUMAN RECOMB 1 MG INJ IM PRN (22:08)
[2020-08-14] MEDS ORDERED: DEXTROSE 40% GEL 15 GM TUBE PO PRN ×2 (22:08)
[2020-08-14] MEDS ORDERED: DEXTROSE 50%-WATER 25 GM/50 ML DISP.SYRIN IV PRN ×2 (22:08)
--- NOTE | 2020-08-15 00:30 | PDOC H&P ---
History of Present Illness Admission Date/PCP: 08/14/20 20:15 SLOANE CERDA MD Patient complains of: Back pain History of Present Illness: MANNY RENTERIA is a 85 year old female who presents the emergency room with a 5- week history of back pain. She admits progressively worsening constant aching pain in her lower back, without radiation for the last month. She denies associated or accompanying signs and symptoms. She admits that her back pain is worsened with any movement and partially relieved by rest. She admits a history of an acute first lumbar vertebra compression fracture at the onset of the pain. She denies prior similar episodes. She admits being positive for COVID-19 on 07/17/2020. She denies identification of any additional aggravating or ameliorating factors for her back pain. In the emergency room she was found to have worsening status of her L1 compression fracture with increased retropulsion and impingement. Dr. Nieto was consulted by the emergency room provider and recommended admission for pain control with possible interventional radiology treatment. Patient was also noted to have elevated liver function studies and an elevated lipase, however the extensive emergency room evaluation of these findings failed to demonstrate an etiology. Patient was subsequently admitted to the medical service for further evaluation and treatment. Past Medical History Cardiac Medical History: Reports: Hyperlipidema, Hypertension Denies: Congestive Heart Failure, Coronary Artery Disease, Myocardial Infarction Pulmonary Medical History: Denies: Asthma, Bronchitis, Chronic Obstructive Pulmonary Disease (COPD), Sleep Apnea EENT Medical History: Denies: Cataracts, Ears - Hearing aids Neurological Medical History: Denies: Hemorrhagic CVA, Ischemic CVA, Migraine, Seizures Endocrine Medical History: Reports: Diabetes Mellitus Type 2 Denies: Diabetes Mellitus Type 1, Hyperthyroidism, Hypothyroidism Renal/ Medical History: Denies: Chronic Kidney Disease, Nephrolithiasis Malignancy Medical History: Reports: None GI Medical History: Reports: Gastroesophageal Reflux Disease Denies: Cirrhosis, Crohn's Disease, Hepatitis, Peptic Ulcer Disease, Ulcerative Colitis Musculoskeltal Medical History: Reports: Arthritis Denies: Fibromyalgia, Gout Skin Medical History: Denies: Eczema, Psoriasis Psychiatric Medical History: Reports: General Anxiety Disorder Denies: Alcohol Dependency, Depression, Substance Abuse, Tobacco Dependency Traumatic Medical History: Reports: None Hematology: Reports: Anemia Denies: Bleeding Tendencies Infectious Medical History: Reports: None Past Surgical History Past Surgical History: Reports: None Social History Information Source: Patient Lives with: Family Smoking Status: Former Smoker Electronic Cigarette use?: No Frequency of Alcohol Use: Occasional Hx Recreational Drug Use: No Drugs: None Hx Prescription Drug Abuse: No - Advance Directive Resuscitation Status: Full Code Surrogate healthcare decision maker:: Cristhian Carmen Family History Family History: CAD, CVA, DM, Hypertension, Malignancy Parental Family History Reviewed: Yes Children Family History Reviewed: No Sibling(s) Family History Reviewed.: Yes Medication/Allergy Home Medications: Atorvastatin Calcium [Lipitor 40 mg Tablet] 40 mg PO QHS 08/14/20 Enoxaparin Sodium [Lovenox Inj 40 Mg/0.4 Ml Disp.Syrin] 40 mg SUBCUT DAILY 08/14/20 Fentanyl [Duragesic 12 Mcg/Hr Transdermal Patch] 1 each TD Q3D 08/14/20 Gabapentin [Neurontin 100 mg Capsule] 100 mg PO Q8H 08/14/20 Hydromorphone HCl [Dilaudid 2 mg Tablet] 2 mg PO Q6H PRN 08/14/20 Lidocaine [Lidoderm 5% (700 mg) Transdermal Patch] 1 patch TP DAILY 08/14/20 Metformin HCl 1,000 mg PO DAILY 08/14/20 Metoprolol Tartrate [Lopressor] 50 mg PO BID 08/14/20 [place]-3 Acid Ethyl Esters [Lovaza 1 gm Capsule] 1 gm PO DAILY 08/14/20 Ondansetron [Zofran Odt 4 mg Tablet] 4 mg PO Q4HP PRN 08/14/20 Ubidecarenone [Coq-10] 100 mg PO DAILY 08/14/20 Allergies/Adverse Reactions: No Known Drug Allergies Allergy (Verified 07/08/20 12:01) Review of Systems Constitutional: ABSENT: anorexia, fever(s) Eyes: ABSENT: visual disturbances, other - Eye pain Ears: ABSENT: hearing changes, other - Ear pain Nose, Mouth, and Throat: ABSENT: headache(s), sore throat Cardiovascular: ABSENT: chest pain, palpitations Respiratory: ABSENT: cough, dyspnea Gastrointestinal: ABSENT: abdominal pain, constipation, diarrhea, nausea, vomiting Genitourinary: ABSENT: dysuria, hematuria Musculoskeletal: PRESENT: as per HPI, back pain. ABSENT: joint swelling, muscle weakness Integumentary: ABSENT: pruritus, rash Neurological: ABSENT: confusion, convulsions, focal weakness, memory loss, syncope Psychiatric: ABSENT: anxiety, depression Endocrine: ABSENT: cold intolerance, heat intolerance Hematologic/Lymphatic: ABSENT: easy bleeding, easy bruising Allergic/Immunologic: ABSENT: seasonal rhinorrhea Physical Exam Vital Signs: Temp Pulse Resp BP Pulse Ox 98.1 F 20 136/74 H 92 08/14/20 12:22 08/14/20 21:01 08/14/20 21:00 08/14/20 21:01 Intake & Output 08/12/20 08/13/20 08/14/20 23:59 23:59 23:59 Intake Total 1000 Balance 1000 Weight 58.967 kg General appearance: PRESENT: cooperative, mild distress - Secondary to back pain Head exam: PRESENT: atraumatic, normocephalic Eye exam: PRESENT: conjunctiva pink. ABSENT: conjunctival injection, scleral icterus Ear exam: PRESENT: normal external ear exam. ABSENT: bleeding, drainage Mouth exam: PRESENT: dry mucosa, neck supple Neck exam: ABSENT: thyromegaly, tracheal deviation Respiratory exam: PRESENT: clear to auscultation damien, symmetrical, unlabored Cardiovascular exam: PRESENT: RRR. ABSENT: clicks, gallop, rubs Pulses: PRESENT: normal radial pulses, normal dorsalis pedis pul Vascular exam: PRESENT: normal capillary refill. ABSENT: pallor GI/Abdominal exam: PRESENT: normal bowel sounds, soft. ABSENT: organolmegaly, tenderness Rectal exam: PRESENT: deferred Extremities exam: ABSENT: joint swelling, pedal edema Musculoskeletal exam: PRESENT: tenderness - Severe tenderness of the first lumbar vertebra area is noted on palpation. ABSENT: deformity, dislocation Neurological exam: PRESENT: alert, oriented to person, oriented to place, oriented to time, oriented to situation, CN II-XII grossly intact. ABSENT: motor sensory deficit Psychiatric exam: PRESENT: appropriate affect, normal mood Skin exam: PRESENT: dry, intact, warm. ABSENT: jaundice, rash, urticaria Results Laboratory Results: 08/14/20 12:13 08/14/20 12:13 08/14/20 08/14/20 08/14/20 12:13 12:13 12:13 WBC 8.0 RBC 4.30 Hgb 12.7 Hct 37.7 MCV 88 MCH 29.5 MCHC 33.7 RDW 14.8 H Plt Count 258 Seg Neutrophils % 76.1 VBG pH 7.39 VBG pCO2 45.1 VBG HCO3 26.6 VBG Base Excess 1.2 Sodium 137.4 Potassium 4.3 Chloride 101 Carbon Dioxide 25 Anion Gap 11 BUN 8 Creatinine 0.57 Est GFR ( Amer) > 60 Glucose 180 H Lactic Acid Calcium 9.3 Total Bilirubin 1.7 H AST 717 H Alkaline Phosphatase 669 H Total Protein 6.8 Albumin 3.8 Lipase Urine Color Urine Appearance Urine pH Ur Specific [place] Urine Protein Urine Glucose (UA) Urine Ketones Urine Blood Urine RBC (Auto) 08/14/20 08/14/20 08/14/20 12:13 12:13 14:46 WBC RBC Hgb Hct MCV MCH MCHC RDW Plt Count Seg Neutrophils % VBG pH VBG pCO2 VBG HCO3 VBG Base Excess Sodium Potassium Chloride Carbon Dioxide Anion Gap BUN Creatinine Est GFR ( Amer) Glucose Lactic Acid 2.0 0.8 Calcium Total Bilirubin AST Alkaline Phosphatase Total Protein Albumin Lipase 595.1 H Urine Color Urine Appearance Urine pH Ur Specific [place] Urine Protein Urine Glucose (UA) Urine Ketones Urine Blood Urine RBC (Auto) 08/14/20 08/14/20 15:34 18:22 WBC RBC Hgb Hct MCV MCH MCHC RDW Plt Count Seg Neutrophils % VBG pH VBG pCO2 VBG HCO3 VBG Base Excess Sodium Potassium Chloride Carbon Dioxide Anion Gap BUN Creatinine Est GFR ( Amer) Glucose Lactic Acid 0.7 Calcium Total Bilirubin AST Alkaline Phosphatase Total Protein Albumin Lipase Urine Color YELLOW Urine Appearance CLEAR Urine pH 5.0 Ur Specific [place] 1.011 Urine Protein NEGATIVE Urine Glucose (UA) NEGATIVE Urine Ketones 20 H Urine Blood NEGATIVE Urine RBC (Auto) 1 08/14/20 12:13 Troponin I 0.030 Impressions: Chest X-Ray 08/14/20 11:27 IMPRESSION: No evidence of acute cardiopulmonary abnormality. Abdomen/Pelvis CT 08/14/20 11:28 IMPRESSION: 1. No evidence of urolithiasis or obstructive uropathy. 2. L1 vertebral body compression deformity with retropulsed component is progressed relative to 07/12/2020 MR imaging. Abdomen Ultrasound 08/14/20 13:30 IMPRESSION: No acute findings. Simple right renal cyst. Abdomen MRI 08/14/20 15:36 IMPRESSION: NORMAL HEPATOBILIARY SYSTEM. NO STONES OR COMMON DUCT ABNORMALITIES. CHRONIC AND INCIDENTAL FINDINGS INCLUDE A 3.7 CM LEFT OVARIAN CYST. GIVEN POSTMENOPAUSAL STATE, RECOMMEND FOLLOW-UP SONOGRAPHIC EVALUATION IN 12 MONTHS. Lumbar Spine MRI 08/14/20 15:36 IMPRESSION: Progression in a previously demonstrated L1 vertebral body compression deformity with increased retropulsion resulting in near complete effacement of the CSF signal at this level. This also effects significant neural foraminal stenosis at the T12/L1 and L1/2 levels as detailed above. Assessment and Plan - Diagnosis (1) Intractable low back pain Is this a current diagnosis for this admission?: Yes (2) Compression fracture of L1 lumbar vertebra Qualifiers: Encounter type: subsequent encounter Fracture healing: with nonunion Qualified Code(s): S32.010K - Wedge compression fracture of first lumbar vertebra, subsequent encounter for fracture with nonunion Is this a current diagnosis for this admission?: Yes (3) Elevated liver function tests Is this a current diagnosis for this admission?: Yes (4) Diabetes mellitus type 2 in nonobese Is this a current diagnosis for this admission?: Yes (5) Hypertension Qualifiers: Hypertension type: essential hypertension Qualified Code(s): I10 - Essential (primary) hypertension Is this a current diagnosis for this admission?: Yes (6) Hyperlipidemia Qualifiers: Hyperlipidemia type: unspecified Qualified Code(s): E78.5 - Hyperlipidemia, unspecified Is this a current diagnosis for this admission?: Yes - Plan Summary Summary: Patient will be admitted to the medical service where she will receive routine supportive and symptomatic cares. Dr. Nieto will be consulted for orthopedic evaluation and direction of treatment. Serial liver function studies will be obtained. Patient will receive morphine sulfate 2 to 4 mg IV every 2 hours as needed for pain. Patient will be on a cardiac and diabetic restricted diet. Interventional radiology consultation for kyphoplasty will be sought if approved by Dr. Nieto. Patient's usual home medications will be continued, as appropriate, when her medication list has been verified and reconciled. CBCs, metabolic profiles and additional laboratory and/or radiographic evaluations will be obtained as needed. Before meals and at bedtime Accu-Cheks will be obtained with sliding scale insulin to treat hyperglycemia and with a hypoglycemic protocol in place. - Time Time Spent with patient: Less than 15 minutes Medications reviewed and adjusted accordingly: Yes Anticipated Discharge Disposition: [facility] Facility Anticipated Discharge Timeframe: when bed available - Inpatient Certification Based on my medical assessment, after consideration of the patient's comor bidities, presenting symptoms, or acuity I expect that the services needed warrant INPATIENT care.: Yes I certify that my determination is in accordance with my understanding of Medicare's requirements for reasonable and necessary INPATIENT services [42 CFR 412.3e].: Yes Medical Necessity: Failure to Improve With Outpatient Therapy, Need for Pain Control
[2020-08-15] MEDS: CLONAZEPAM 1 MG TABLET PO SCH ×3 (01:26→22:12)
[2020-08-15] MEDS: FAMOTIDINE 20 MG TABLET PO SCH ×3 (01:26→22:12)
[2020-08-15] MEDS: HEPARIN SOD (PORCINE) 5,000 UNIT/ML 1 ML VIAL SUBCUT SCH ×4 (01:27→22:11)
[2020-08-15] MEDS: INSULIN REG, HUMAN 100 UNIT/ML 3 ML VIAL (PYX) SUBCUT SCH ×5 (01:27→22:14)
[2020-08-15 07:11] LABS: HEMATOCRIT 35.1 % (36.0-47.0); HEMOGLOBIN 11.7 g/dL (12.0-15.5); MEAN CORPUSCULAR HEMOGLOBIN 29.3 pg (27.0-33.4); MEAN CORPUSCULAR HGB CONC 33.4 g/dL (32.0-36.0); MEAN CORPUSCULAR VOLUME 88 fl (80-97); PLATELET COUNT 204 10^3/uL (150-450); RED BLOOD COUNT 3.99 10^6/uL (3.72-5.28); RED CELL DISTRIBUTION WIDTH 14.6 % (11.5-14.0); WHITE BLOOD COUNT 5.6 10^3/uL (4.0-10.5)
[2020-08-15 07:30] LABS: ALBUMIN 2.9 g/dL (3.5-5.0); ALKALINE PHOSPHATASE 494 U/L (38-126); AMYLASE 71 U/L (30-110); ANION GAP 7 (5-19); ASPARTATE AMINO TRANSFERASE 408 U/L (14-36); BILIRUBIN,TOTAL 1.5 mg/dL (0.2-1.3); BLOOD UREA NITROGEN 6 mg/dL (7-20); CALCIUM 8.5 mg/dL (8.4-10.2); CARBON DIOXIDE 24 mmol/L (22-30); CHLORIDE 107 mmol/L (98-107); CHOLESTEROL 118.93 mg/dL (0-200); GLUCOSE 100 mg/dL (75-110); TOTAL PROTEIN 5.7 g/dL (6.3-8.2); TRIGLYCERIDES 142 mg/dL (<150)
[2020-08-15 07:41] LABS: DIRECT LDL 44 mg/dL (<100)
[2020-08-15] MEDS ORDERED: HYDROMORPHONE HCL 2 MG TABLET PO PRN (08:15)
[2020-08-15] MEDS: HYDROMORPHONE HCL 2 MG TABLET PO PRN ×2 (09:07→17:59)
[2020-08-15] MEDS: METOPROLOL TARTRATE 50 MG TABLET PO SCH ×2 (09:12→17:59)
[2020-08-15] MEDS: OMEGA-3 ACID ETHYL ESTERS 1 GM CAPSULE PO SCH (09:12)
[2020-08-15] MEDS: DOCUSATE SODIUM 100 MG CAPSULE PO SCH ×2 (09:12→18:00)
[2020-08-15] MEDS: METFORMIN HCL 500 MG TABLET PO SCH ×2 (09:13→16:05)
[2020-08-15] MEDS ORDERED: FENTANYL 12 MCG/HR PATCH.TD72 TD SCH (10:00)
[2020-08-15] MEDS: GABAPENTIN 100 MG CAPSULE PO SCH ×3 (10:00→16:05)
[2020-08-15] MEDS: LIDOCAINE 5% (700 MG) TRANSDERMAL ADH..PATCH TP SCH (14:05)
--- NOTE | 2020-08-15 14:32 | PDOC CONSULTATION ---
Consultation Consult Date: 08/15/20 Provider Consulted: SRINI AGUILA JR History of Present Illness Admission Date/PCP: 08/14/20 20:15 SLOANE CERDA MD History of Present Illness: MANNY RENTERIA is a 85 year old female who has approximately 2 months worth of back pain. Pain started insidiously and worsened over time. She denies any interval falls. She denies lower extremity loss of sensation or motor function, loss of bladder or bowel function. Pain is aching in nature localized to the back. It is nonradiating it does not present down the legs. She denies burning pain, pain is located in the center of her back, severe in nature, aching. Pain is worse with activity improved with rest. She is able to fully flex and extend her legs without pain. Past Medical History Cardiac Medical History: Reports: Hyperlipidema, Hypertension Denies: Congestive Heart Failure, Coronary Artery Disease, Myocardial Infarction Pulmonary Medical History: Denies: Asthma, Bronchitis, Chronic Obstructive Pulmonary Disease (COPD), Sleep Apnea EENT Medical History: Denies: Cataracts, Ears - Hearing aids Neurological Medical History: Denies: Hemorrhagic CVA, Ischemic CVA, Migraine, Seizures Endocrine Medical History: Reports: Diabetes Mellitus Type 2 Denies: Diabetes Mellitus Type 1, Hyperthyroidism, Hypothyroidism Renal/ Medical History: Denies: Chronic Kidney Disease, Nephrolithiasis Malignancy Medical History: Reports: None GI Medical History: Reports: Gastroesophageal Reflux Disease Denies: Cirrhosis, Crohn's Disease, Hepatitis, Peptic Ulcer Disease, Ulcerative Colitis Musculoskeltal Medical History: Reports: Arthritis Denies: Fibromyalgia, Gout Skin Medical History: Denies: Eczema, Psoriasis Psychiatric Medical History: Reports: General Anxiety Disorder Denies: Alcohol Dependency, Depression, Substance Abuse, Tobacco Dependency Traumatic Medical History: Reports: None Hematology: Reports: Anemia Denies: Bleeding Tendencies Infectious Medical History: Reports: None Past Surgical History Past Surgical History: Reports: None Social History Lives with: Family Smoking Status: Former Smoker Electronic Cigarette use?: No Frequency of Alcohol Use: Occasional Hx Recreational Drug Use: No Drugs: None Hx Prescription Drug Abuse: No - Advance Directive Resuscitation Status: Full Code Family History Family History: CAD, CVA, DM, Hypertension, Malignancy Parental Family History Reviewed: No Children Family History Reviewed: NA Sibling(s) Family History Reviewed.: NA Medication/Allergy Home Medications: Atorvastatin Calcium [Lipitor 40 mg Tablet] 40 mg PO QHS 08/14/20 Hydromorphone HCl [Dilaudid 2 mg Tablet] 0.5 mg PO Q8HP PRN 08/14/20 Lidocaine [Lidoderm 5% (700 mg) Transdermal Patch] 1 patch TP DAILY 08/14/20 Metoprolol Tartrate [Lopressor] 50 mg PO BID 08/14/20 Aspirin [Ecotrin 81 mg EC Tablet] 81 mg PO DAILY 08/15/20 Baclofen [Baclofen 10 mg Tablet] 10 mg PO BID 08/15/20 Cholecalciferol (Vitamin D3) [Vitamin D3] 1,000 unit PO DAILY 08/15/20 Duloxetine HCl 20 mg PO DAILY 08/15/20 Fluticasone Propionate [Flonase Nasal [place] 50 Mcg/[place] 16 gm] 1 spray NASL DAILY 08/15/20 Naproxen 375 mg PO BIDBS 08/15/20 [place]-3/Dha/Epa/Fish Oil [Fish Oil 1,000 mg Softgel] 1 each PO DAILY 08/15/20 Sitagliptin Phos/Metformin HCl [Janumet Xr 50-1,000 mg Tablet] 1 each PO DAILY 08/15/20 Allergies/Adverse Reactions: No Known Drug Allergies Allergy (Verified 07/08/20 12:01) Review of Systems Review of Systems: Constitutional: ABSENT: anorexia, chills, night sweats Cardiovascular: ABSENT: chest pain Respiratory: ABSENT: dyspnea Gastrointestinal: ABSENT: vomiting Genitourinary: ABSENT: dysuria Integumentary: ABSENT: rash Neurological: ABSENT: confusion, memory loss, numbness Psychiatric: ABSENT: hallucinations Hematologic/Lymphatic: ABSENT: easy bleeding Physical Exam Vital Signs: Temp Pulse Resp BP Pulse Ox 98.1 F 75 18 131/71 H 100 08/15/20 12:22 08/15/20 12:22 08/15/20 12:22 08/15/20 12:22 08/15/20 12:22 Intake & Output 08/14/20 08/15/20 08/16/20 06:59 06:59 06:59 Intake Total 1000 1000 Balance 1000 1000 Weight 53.6 kg Physical Exam: General appearance: PRESENT: no acute distress, cooperative, well-nourished Head exam: PRESENT: atraumatic, normocephalic Eye exam: PRESENT: EOMI Ear exam: PRESENT: normal external ear exam Mouth exam: PRESENT: neck supple Neck exam: ABSENT: tracheal deviation Respiratory exam: PRESENT: symmetrical, unlabored. ABSENT: accessory muscle use, wheezes Pulses: PRESENT: normal radial pulses, normal dorsalis pedis pulse Vascular exam: PRESENT: normal capillary refill GI/Abdominal exam: ABSENT: distended, firm Extremities exam: PRESENT: full ROM of bilateral shoulders, elbows wrists, knees, hips and ankles without pain Musculoskeletal exam: PRESENT: full ROM, normal inspection of all 4 extremities aside from that noted below. Neurological exam: PRESENT: alert, awake, oriented to person, oriented to place, oriented to time Psychiatric exam: PRESENT: appropriate affect. ABSENT: agitated Focused psych exam: ABSENT: catatonic Skin exam: PRESENT: intact. ABSENT: dry All as above aside from that noted in the HPI and the following: Bilateral lower extremity exam Sensation and motor function grossly intact 5 out of 5 EHL TA gastroc strength -She has full range of motion including full hip flexion without pain. Pain to paraspinal muscular tenderness Pulses 2+ distally Results Laboratory Results: 08/15/20 06:00 08/15/20 06:00 08/14/20 08/14/20 08/14/20 12:13 14:46 15:34 WBC RBC Hgb Hct MCV MCH MCHC RDW Plt Count Sodium Potassium Chloride Carbon Dioxide Anion Gap BUN Creatinine Est GFR ( Amer) Glucose Lactic Acid 0.8 Calcium Magnesium Total Bilirubin AST Alkaline Phosphatase Total Protein Albumin Triglycerides Cholesterol LDL Cholesterol Direct VLDL Cholesterol HDL Cholesterol Amylase Lipase 595.1 H TSH Urine Color YELLOW Urine Appearance CLEAR Urine pH 5.0 Ur Specific [place] 1.011 Urine Protein NEGATIVE Urine Glucose (UA) NEGATIVE Urine Ketones 20 H Urine Blood NEGATIVE Urine RBC (Auto) 1 08/14/20 08/15/20 08/15/20 18:22 06:00 06:00 WBC 5.6 RBC 3.99 Hgb 11.7 L Hct 35.1 L MCV 88 MCH 29.3 MCHC 33.4 RDW 14.6 H Plt Count 204 Sodium 138.3 Potassium 4.0 Chloride 107 Carbon Dioxide 24 Anion Gap 7 BUN 6 L Creatinine 0.50 L Est GFR ( Amer) > 60 Glucose 100 Lactic Acid 0.7 Calcium 8.5 Magnesium 1.8 Total Bilirubin 1.5 H AST 408 H Alkaline Phosphatase 494 H Total Protein 5.7 L Albumin 2.9 L Triglycerides 142 Cholesterol 118.93 LDL Cholesterol Direct 44 VLDL Cholesterol 28.0 HDL Cholesterol 48 Amylase 71 Lipase 312.3 H TSH Urine Color Urine Appearance Urine pH Ur Specific [place] Urine Protein Urine Glucose (UA) Urine Ketones Urine Blood Urine RBC (Auto) 08/15/20 06:00 WBC RBC Hgb Hct MCV MCH MCHC RDW Plt Count Sodium Potassium Chloride Carbon Dioxide Anion Gap BUN Creatinine Est GFR ( Amer) Glucose Lactic Acid Calcium Magnesium Total Bilirubin AST Alkaline Phosphatase Total Protein Albumin Triglycerides Cholesterol LDL Cholesterol Direct VLDL Cholesterol HDL Cholesterol Amylase Lipase TSH 2.40 Urine Color Urine Appearance Urine pH Ur Specific [place] Urine Protein Urine Glucose (UA) Urine Ketones Urine Blood Urine RBC (Auto) 08/14/20 12:13 Troponin I 0.030 Impressions: Chest X-Ray 08/14/20 11:27 IMPRESSION: No evidence of acute cardiopulmonary abnormality. Abdomen/Pelvis CT 08/14/20 11:28 IMPRESSION: 1. No evidence of urolithiasis or obstructive uropathy. 2. L1 vertebral body compression deformity with retropulsed component is progressed relative to 07/12/2020 MR imaging. Abdomen Ultrasound 08/14/20 13:30 IMPRESSION: No acute findings. Simple right renal cyst. Abdomen MRI 08/14/20 15:36 IMPRESSION: NORMAL HEPATOBILIARY SYSTEM. NO STONES OR COMMON DUCT ABNORMALITIES. CHRONIC AND INCIDENTAL FINDINGS INCLUDE A 3.7 CM LEFT OVARIAN CYST. GIVEN POSTMENOPAUSAL STATE, RECOMMEND FOLLOW-UP SONOGRAPHIC EVALUATION IN 12 MONTHS. Lumbar Spine MRI 08/14/20 15:36 IMPRESSION: Progression in a previously demonstrated L1 vertebral body compression deformity with increased retropulsion resulting in near complete effacement of the CSF signal at this level. This also effects significant neural foraminal stenosis at the T12/L1 and L1/2 levels as detailed above. Assessment & Plan - Diagnosis (1) Compression fracture of L1 lumbar vertebra Qualifiers: Encounter type: subsequent encounter Fracture healing: with nonunion [place] lified Code(s): S32.010K - Wedge compression fracture of first lumbar vertebra, subsequent encounter for fracture with nonunion Is this a current diagnosis for this admission?: Yes Plan: Patient has a subacute L1 fracture. I have discussed this with Dr. Babin who has reviewed her images and says that she is not a good candidate for kyphoplasty. At this time the patient has no symptoms of cauda equina and no indication for acute intervention such as spine surgery or neurosurgery evaluation Given pain is axial and nonradicular, epidural or foraminal injections are unlikely to produce benefit Consider outpatient follow-up with Dr. Iraheta -Weightbearing as tolerated, encourage out of bed, PT OT Consider oral steroid pack, lumbar lidocaine patch, heating pack, lumbar orthosis. -If patient develops any symptoms of cauda equina, including loss of bowel or bladder function, saddle anesthesia, progressive motor weakness or loss of sensation, she should seek neurosurgical intervention as soon as possible
--- NOTE | 2020-08-15 14:50 | PDOC PROGRESS REPORT ---
Subjective Progress Note for:: 08/15/20 Subjective:: The patient is an 85-year-old female with a past medical history of hypertension, hyperlipidemia, DM 2, arthritis, anxiety, depression, and L1 compression fracture who was admitted 08/14/2020 with intractable back pain secondary to L1 lumbar vertebrae compression fracture. She was incidentally found to have elevated LFTs. Patient was seen on morning rounds. She is found resting in bed, comfortably, on room air. She was initially found to be sitting upright, legs crossed, but then laid back and on side to side independently without clear/objective evidence of discomfort. Patient does report continued low back pain. She is noted to have labile mood and tangential thinking; discusses her back pain, poor appetite, fatigue, nonspecific skin complaint (r/t aging/appearance). She does admit that she has not been wearing her clam-shell back brace since her discharge from SN[facility]. She denies fever, chills, chest pain, palpitations, abd pain, nausea and vomiting. She does report sensation or urinary frequency w/o urgency and dysuria. She has no other questions or concerns at this time. No concerns per nursing. Reason For Visit: INTRACTABLE BACK PAIN, L1 COMPRESSION FRACTURE Physical Exam Vital Signs: Temp Pulse Resp BP Pulse Ox 97.5 F 87 14 124/52 L 96 08/15/20 03:42 08/15/20 03:42 08/15/20 03:42 08/15/20 03:42 08/15/20 03:42 Intake & Output 08/14/20 08/15/20 08/16/20 06:59 06:59 06:59 Intake Total 1000 1000 Balance 1000 1000 Weight 53.6 kg General appearance: PRESENT: no acute distress, cooperative, well-developed, well-nourished Head exam: PRESENT: atraumatic, normocephalic Eye exam: PRESENT: conjunctiva pink, EOMI, PERRLA. ABSENT: scleral icterus Ear exam: PRESENT: normal external ear exam Mouth exam: PRESENT: moist, tongue midline Respiratory exam: PRESENT: clear to auscultation damien, symmetrical, unlabored. ABSENT: rales, rhonchi, wheezes Cardiovascular exam: PRESENT: RRR, +S1, +S2. ABSENT: diastolic murmur, rubs, systolic murmur Pulses: PRESENT: normal dorsalis pedis pul Vascular exam: PRESENT: normal capillary refill Extremities exam: PRESENT: full ROM. ABSENT: calf tenderness, clubbing, pedal edema Musculoskeletal exam: PRESENT: tenderness - Lumbar spine Neurological exam: PRESENT: alert, awake, oriented to person, oriented to place, oriented to time, oriented to situation, CN II-XII grossly intact. ABSENT: motor sensory deficit Psychiatric exam: PRESENT: appropriate affect, normal mood - labile mood; tearful. ABSENT: homicidal ideation, suicidal ideation Skin exam: PRESENT: dry, intact, warm. ABSENT: cyanosis, rash Results Laboratory Results: 08/15/20 06:00 08/15/20 06:00 08/14/20 08/14/20 08/14/20 12:13 14:46 15:34 WBC RBC Hgb Hct MCV MCH MCHC RDW Plt Count Sodium Potassium Chloride Carbon Dioxide Anion Gap BUN Creatinine Est GFR ( Amer) Glucose Lactic Acid 0.8 Calcium Magnesium Total Bilirubin AST Alkaline Phosphatase Total Protein Albumin Triglycerides Cholesterol LDL Cholesterol Direct VLDL Cholesterol HDL Cholesterol Amylase Lipase 595.1 H TSH Urine Color YELLOW Urine Appearance CLEAR Urine pH 5.0 Ur Specific [place] 1.011 Urine Protein NEGATIVE Urine Glucose (UA) NEGATIVE Urine Ketones 20 H Urine Blood NEGATIVE Urine RBC (Auto) 1 08/14/20 08/15/20 08/15/20 18:22 06:00 06:00 WBC 5.6 RBC 3.99 Hgb 11.7 L Hct 35.1 L MCV 88 MCH 29.3 MCHC 33.4 RDW 14.6 H Plt Count 204 Sodium 138.3 Potassium 4.0 Chloride 107 Carbon Dioxide 24 Anion Gap 7 BUN 6 L Creatinine 0.50 L Est GFR ( Amer) > 60 Glucose 100 Lactic Acid 0.7 Calcium 8.5 Magnesium 1.8 Total Bilirubin 1.5 H AST 408 H Alkaline Phosphatase 494 H Total Protein 5.7 L Albumin 2.9 L Triglycerides 142 Cholesterol 118.93 LDL Cholesterol Direct 44 VLDL Cholesterol 28.0 HDL Cholesterol 48 Amylase 71 Lipase 312.3 H TSH Urine Color Urine Appearance Urine pH Ur Specific [place] Urine Protein Urine Glucose (UA) Urine Ketones Urine Blood Urine RBC (Auto) 08/15/20 06:00 WBC RBC Hgb Hct MCV MCH MCHC RDW Plt Count Sodium Potassium Chloride Carbon Dioxide Anion Gap BUN Creatinine Est GFR ( Amer) Glucose Lactic Acid Calcium Magnesium Total Bilirubin AST Alkaline Phosphatase Total Protein Albumin Triglycerides Cholesterol LDL Cholesterol Direct VLDL Cholesterol HDL Cholesterol Amylase Lipase TSH 2.40 Urine Color Urine Appearance Urine pH Ur Specific [place] Urine Protein Urine Glucose (UA) Urine Ketones Urine Blood Urine RBC (Auto) 08/14/20 12:13 Troponin I 0.030 Impressions: Chest X-Ray 08/14/20 11:27 IMPRESSION: No evidence of acute cardiopulmonary abnormality. Abdomen/Pelvis CT 08/14/20 11:28 IMPRESSION: 1. No evidence of urolithiasis or obstructive uropathy. 2. L1 vertebral body compression deformity with retropulsed component is progressed relative to 07/12/2020 MR imaging. Abdomen Ultrasound 08/14/20 13:30 IMPRESSION: No acute findings. Simple right renal cyst. Abdomen MRI 08/14/20 15:36 IMPRESSION: NORMAL HEPATOBILIARY SYSTEM. NO STONES OR COMMON DUCT ABNORMALITIES. CHRONIC AND INCIDENTAL FINDINGS INCLUDE A 3.7 CM LEFT OVARIAN CYST. GIVEN POSTMENOPAUSAL STATE, RECOMMEND FOLLOW-UP SONOGRAPHIC EVALUATION IN 12 MONTHS. Lumbar Spine MRI 08/14/20 15:36 IMPRESSION: Progression in a previously demonstrated L1 vertebral body compression deformity with increased retropulsion resulting in near complete effacement of the CSF signal at this level. This also effects significant neural foraminal stenosis at the T12/L1 and L1/2 levels as detailed above. Assessment and Plan - Diagnosis (1) Compression fracture of L1 lumbar vertebra Qualifiers: Encounter type: subsequent encounter Fracture healing: with nonunion Qualified Code(s): S32.010K - Wedge compression fracture of first lumbar vertebra, subsequent encounter for fracture with nonunion Is this a current diagnosis for this admission?: Yes Plan: MRI Lumbar spine shows L1 vertebral body compression deformit w/ increased retropulsion resulting near complete effacement of CSF signal. T12/L1 and L1/2 neural foraminal stenosis. Admitted to the medical floor. Orthopedics is consulted; appreciate Dr. Nieto's assistance. Have resumed patients Duragesic 12 mcg/hr patch and Dilaudid 2 mg p.o. q6hp prn. IV Dilaudid 1 mg q4hp prn breakthrough pain. Lidoderm patch daily. Tylenol and nonpharmacological pain. (2) Elevated liver function tests Is this a current diagnosis for this admission?: Yes Plan: Unclear etiology. MRI abdomen is negative for acute findings. Tylenol level <10 Patient admits to poor p.o. intake for several days r/t back discomfort; possibly r/t decreased fluid intake and continued medication use (duloxetine, atorvastatin). Hepatitis panel pending. Holding heptatoxic medications. Continue IV fluids. Follow LFTs. Plan for RUQ U/S is not substantially improved tomorrow. (3) Diabetes mellitus type 2 in nonobese Is this a current diagnosis for this admission?: Yes Plan: A1C 7.6% Continue home dose metformin. Patient is placed on a consistent carb diet. Accu-Cheks before meals and at bedtime with Humalog for sliding scale coverage. Hypoglycemia protocol in place. (4) Hyperlipidemia Qualifiers: Hyperlipidemia type: unspecified Qualified Code(s): E78.5 - Hyperlipidemia, unspecified Is this a current diagnosis for this admission?: Yes Plan: Holding statin therapy r/t elevated LFTs. Continue home dose Lovaza. Cardiac diet. (5) Hypertension Qualifiers: Hypertension type: essential hypertension Qualified Code(s): I10 - Essential (primary) hypertension Is this a current diagnosis for this admission?: Yes Plan: Slightly elevated but acceptable. Provide appropriate pain management. Continue home dose Metoprolol. Cardiac/CC4 diet. (6) Intractable low back pain Is this a current diagnosis for this admission?: Yes Plan: Secondary to #1 Management as above. (7) COVID-19 virus infection Is this a current diagnosis for this admission?: Yes Plan: Recently tested positive w/ COVID19 (07/17/20). Asymptomatic. Patient requests retest for clearance. Isolation per [facility] protocol. - Time Time Spent with patient: 35 or more minutes Medications reviewed and adjusted accordingly: Yes Anticipated Discharge Disposition: Long-Term Facility Anticipated Discharge Timeframe: within 72 hours
[2020-08-15] MEDS: NORMAL SALINE 1000 ML 1,000 ML IV PRN (16:06)
[2020-08-15] MEDS: HYDROMORPHONE HCL INJ/PF 2 MG/ML AMPULE IV PRN (22:11)
[2020-08-15] MEDS: BACLOFEN 10 MG TABLET PO SCH (22:12)
[2020-08-15] MEDS: MELATONIN 5 MG TABLET PO PRN (22:12)
[2020-08-15] MEDS: PHARMACY COMMUNICATION ORDER MC SCH (22:13)
[2020-08-16] MEDS: HYDROMORPHONE HCL 2 MG TABLET PO PRN (01:59)
[2020-08-16] MEDS: GABAPENTIN 100 MG CAPSULE PO SCH ×4 (01:59→17:27)
[2020-08-16] MEDS: HYDROMORPHONE HCL INJ/PF 2 MG/ML AMPULE IV PRN (02:30)
[2020-08-16 04:34] LABS: APPEARANCE,URINE CLEAR; BILIRUBIN,URINE NEGATIVE (NEGATIVE); COLOR,URINE YELLOW; GLUCOSE, URINE NEGATIVE (NEGATIVE); KETONES,URINE 20 mg/dL (NEGATIVE); PROTEIN,URINE NEGATIVE (NEGATIVE); URINE SPECIFIC GRAVITY 1.009; UROBILINOGEN,URINE NEGATIVE mg/dL (<2.0)
[2020-08-16 05:27] LABS: HEMATOCRIT 33.8 % (36.0-47.0); HEMOGLOBIN 11.4 g/dL (12.0-15.5); MEAN CORPUSCULAR HEMOGLOBIN 29.7 pg (27.0-33.4); MEAN CORPUSCULAR HGB CONC 33.7 g/dL (32.0-36.0); MEAN CORPUSCULAR VOLUME 88 fl (80-97); PLATELET COUNT 218 10^3/uL (150-450); RED BLOOD COUNT 3.84 10^6/uL (3.72-5.28); RED CELL DISTRIBUTION WIDTH 14.8 % (11.5-14.0); WHITE BLOOD COUNT 7.5 10^3/uL (4.0-10.5)
[2020-08-16] MEDS: HEPARIN SOD (PORCINE) 5,000 UNIT/ML 1 ML VIAL SUBCUT SCH ×3 (05:45→22:52)
[2020-08-16 05:52] LABS: ALBUMIN 2.8 g/dL (3.5-5.0); ALKALINE PHOSPHATASE 505 U/L (38-126); ANION GAP 8 (5-19); ASPARTATE AMINO TRANSFERASE 304 U/L (14-36); BILIRUBIN,DIRECT 1.6 mg/dL (0.0-0.4); BILIRUBIN,TOTAL 2.1 mg/dL (0.2-1.3); BLOOD UREA NITROGEN 7 mg/dL (7-20); CALCIUM 8.4 mg/dL (8.4-10.2); CARBON DIOXIDE 22 mmol/L (22-30); CHLORIDE 107 mmol/L (98-107); GLUCOSE 124 mg/dL (75-110); POTASSIUM 4.2 mmol/L (3.6-5.0); TOTAL PROTEIN 5.7 g/dL (6.3-8.2)
[2020-08-16] MEDS: INSULIN REG, HUMAN 100 UNIT/ML 3 ML VIAL (PYX) SUBCUT SCH ×4 (08:27→22:52)
[2020-08-16] MEDS ORDERED: HYDROMORPHONE HCL INJ/PF 2 MG/ML AMPULE IV PRN (08:28)
[2020-08-16] MEDS: METFORMIN HCL 500 MG TABLET PO SCH ×3 (08:29→16:37)
[2020-08-16] MEDS ORDERED: FENTANYL 25 MCG/HR PATCH.TD72 TD ONE (08:30)
[2020-08-16] MEDS ORDERED: HYDROMORPHONE HCL 2 MG TABLET PO PRN ×2 (08:31→13:21)
[2020-08-16 08:37] LABS: HEPATITS B SURFACE ANTIGEN Negative (Negative)
[2020-08-16] MEDS: OMEGA-3 ACID ETHYL ESTERS 1 GM CAPSULE PO SCH (09:20)
[2020-08-16] MEDS: FAMOTIDINE 20 MG TABLET PO SCH ×2 (09:20→22:53)
[2020-08-16] MEDS: CHOLECALCIFEROL (D3) 1,000 UNIT (25 MCG) TABLET PO SCH (09:20)
[2020-08-16] MEDS: BACLOFEN 10 MG TABLET PO SCH ×2 (09:20→22:52)
[2020-08-16] MEDS: METOPROLOL TARTRATE 50 MG TABLET PO SCH ×2 (09:20→17:27)
[2020-08-16] MEDS: DOCUSATE SODIUM 100 MG CAPSULE PO SCH ×2 (09:20→17:27)
[2020-08-16] MEDS: CLONAZEPAM 1 MG TABLET PO SCH (09:21)
[2020-08-16] MEDS: LIDOCAINE 5% (700 MG) TRANSDERMAL ADH..PATCH TP SCH (09:21)
[2020-08-16] MEDS: FLUTICASONE NASAL SPRAY 50 MCG/SPRY 120 SPRAY/16 GM NASL SCH (09:22)
[2020-08-16] MEDS ORDERED: (PENDING PHARMACY ID) (Omega-3/Dha/Epa/Fish Oil [Fish Oil 1,000 Mg Softgel] 1 EACH) PO SCH (10:00)
[2020-08-16] MEDS ORDERED: (PENDING PHARMACY ID) (Cholecalciferol (Vitamin D3) [Vitamin D3] 1,000 UNIT) PO SCH (10:00)
--- NOTE | 2020-08-16 13:25 | PDOC PROGRESS REPORT ---
Subjective Progress Note for:: 08/16/20 Subjective:: The patient is an 85-year-old female with a past medical history of hypertension, hyperlipidemia, DM 2, arthritis, anxiety, depression, and L1 compression fracture who was admitted 08/14/2020 with intractable back pain secondary to L1 lumbar vertebrae compression fracture. She was incidentally found to have elevated LFTs. Patient was seen on morning rounds. She is found resting in the recliner, comfortably, on room air. She was sleeping, but woke after saying her name loudly several times. Patient is agitated and states she is tired; wants to be left alone. Per nursing, she has been sleeping most of the day and has declined her morning medications. She does appear to be comfortable and is not noted to be in any distress. She has no other questions or concerns at this time. No concerns per nursing. Reason For Visit: INTRACTABLE BACK PAIN, L1 COMPRESSION FRACTURE Physical Exam Vital Signs: Temp Pulse Resp BP Pulse Ox 97.6 F 86 19 138/63 H 94 08/16/20 08:00 08/16/20 08:00 08/16/20 08:00 08/16/20 08:00 08/16/20 08:00 Intake & Output 08/15/20 08/16/20 08/17/20 06:59 06:59 06:59 Intake Total 1000 3290 Balance 1000 3290 Weight 53.6 kg 51.7 kg General appearance: PRESENT: no acute distress, cooperative, disheveled, well- developed, well-nourished Head exam: PRESENT: atraumatic, normocephalic Eye exam: PRESENT: conjunctiva pink, EOMI, PERRLA. ABSENT: scleral icterus Mouth exam: PRESENT: moist, tongue midline Teeth exam: PRESENT: dental caries, poor dentation Respiratory exam: PRESENT: clear to auscultation damien, symmetrical, unlabored, other - room air. ABSENT: rales, rhonchi, wheezes Cardiovascular exam: PRESENT: RRR. ABSENT: diastolic murmur, rubs, systolic murmur Pulses: PRESENT: normal dorsalis pedis pul Vascular exam: PRESENT: normal capillary refill Extremities exam: PRESENT: full ROM. ABSENT: calf tenderness, clubbing, pedal edema Musculoskeletal exam: PRESENT: tenderness - lumbar pain Neurological exam: PRESENT: oriented to person, oriented to place, oriented to time, oriented to situation, CN II-XII grossly intact, other - arousable. ABSENT: motor sensory deficit Psychiatric exam: PRESENT: agitated, anxious. ABSENT: homicidal ideation, suicidal ideation Skin exam: PRESENT: dry, intact, warm. ABSENT: cyanosis, rash Results Laboratory Results: 08/16/20 04:28 08/16/20 04:28 08/16/20 08/16/20 08/16/20 03:34 04:28 04:28 WBC 7.5 RBC 3.84 Hgb 11.4 L Hct 33.8 L MCV 88 MCH 29.7 MCHC 33.7 RDW 14.8 H Plt Count 218 Sodium 136.9 L Potassium 4.2 Chloride 107 Carbon Dioxide 22 Anion Gap 8 BUN 7 Creatinine 0.48 L Est GFR ( Amer) > 60 Glucose 124 H Calcium 8.4 Total Bilirubin 2.1 H AST 304 H Alkaline Phosphatase 505 H Total Protein 5.7 L Albumin 2.8 L Lipase 336.5 H Urine Color YELLOW Urine Appearance CLEAR Urine pH 5.0 Ur Specific [place] 1.009 Urine Protein NEGATIVE Urine Glucose (UA) NEGATIVE Urine Ketones 20 H Urine Blood NEGATIVE Urine RBC (Auto) 1 08/14/20 12:13 Troponin I 0.030 Impressions: Chest X-Ray 08/14/20 11:27 IMPRESSION: No evidence of acute cardiopulmonary abnormality. Abdomen/Pelvis CT 08/14/20 11:28 IMPRESSION: 1. No evidence of urolithiasis or obstructive uropathy. 2. L1 vertebral body compression deformity with retropulsed component is progressed relative to 07/12/2020 MR imaging. Abdomen Ultrasound 08/14/20 13:30 IMPRESSION: No acute findings. Simple right renal cyst. Abdomen MRI 08/14/20 15:36 IMPRESSION: NORMAL HEPATOBILIARY SYSTEM. NO STONES OR COMMON DUCT ABNORMALITIES. CHRONIC AND INCIDENTAL FINDINGS INCLUDE A 3.7 CM LEFT OVARIAN CYST. GIVEN POSTMENOPAUSAL STATE, RECOMMEND FOLLOW-UP SONOGRAPHIC EVALUATION IN 12 MONTHS. Lumbar Spine MRI 08/14/20 15:36 IMPRESSION: Progression in a previously demonstrated L1 vertebral body compression deformity with increased retropulsion resulting in near complete effacement of the CSF signal at this level. This also effects significant chinyere ral foraminal stenosis at the T12/L1 and L1/2 levels as detailed above. Assessment and Plan - Diagnosis (1) Compression fracture of L1 lumbar vertebra Qualifiers: Encounter type: subsequent encounter Fracture healing: with nonunion Qualified Code(s): S32.010K - Wedge compression fracture of first lumbar vertebra, subsequent encounter for fracture with nonunion Is this a current diagnosis for this admission?: Yes Plan: MRI Lumbar spine shows L1 vertebral body compression deformit w/ increased retr opulsion resulting near complete effacement of CSF signal. T12/L1 and L1/2 neural foraminal stenosis. Admitted to the medical floor. Orthopedics is consulted; appreciate Dr. Nieto's assistance. Patient is not a candidate for surgical or IR intervention at this time. Recommend outpatient follow up w/ Dr. Ward. Increased to Duragesic 25 mcg/hr patch Decreased to Dilaudid 1 mg p.o. q8hp prn. Lidoderm patch daily. Tylenol and nonpharmacological pain. (2) Elevated liver function tests Is this a current diagnosis for this admission?: Yes Plan: Trending down. Unclear etiology. MRI abdomen is negative for acute findings. Tylenol level <10 Patient admits to poor p.o. intake for several days r/t back discomfort; possibl y r/t decreased fluid intake and continued medication use (duloxetine, atorvastatin). Hepatitis panel negative Holding heptatoxic medications. Continue IV fluids. Follow LFTs. (3) Diabetes mellitus type 2 in nonobese Is this a current diagnosis for this admission?: Yes Plan: A1C 7.6% Continue home dose metformin. Patient is placed on a consistent carb diet. Accu-Cheks before meals and at bedtime with Humalog for sliding scale coverage. Hypoglycemia protocol in place. (4) Hyperlipidemia Qualifiers: Hyperlipidemia type: unspecified Qualified Code(s): E78.5 - Hyperlipidemia, unspecified Is this a current diagnosis for this admission?: Yes Plan: Holding statin therapy r/t elevated LFTs. Continue home dose Lovaza. Cardiac diet. (5) Hypertension Qualifiers: Hypertension type: essential hypertension Qualified Code(s): I10 - Es sential (primary) hypertension Is this a current diagnosis for this admission?: Yes Plan: Slightly elevated but acceptable. Provide appropriate pain management. Continue home dose Metoprolol. Cardiac/CC4 diet. (6) Intractable low back pain Is this a current diagnosis for this admission?: Yes Plan: Secondary to #1 Management as above. (7) COVID-19 virus infection Is this a current diagnosis for this admission?: Yes Plan: Recently tested positive w/ COVID19 (07/17/20). Asymptomatic. Patient requests retest for clearance. Isolation per [facility] protocol. - Time Time Spent with patient: 25-34 minutes Medications reviewed and adjusted accordingly: Yes Anticipated Discharge Disposition: undetermined Anticipated Discharge Timeframe: within 72 hours
[2020-08-16] MEDS: PHARMACY COMMUNICATION ORDER MC SCH (22:53)
[2020-08-16 23:57] LABS: HEPATITIS C VIRUS ANTIBODY <0.1 s/co ratio (0.0-0.9)
[2020-08-17] MEDS: GABAPENTIN 100 MG CAPSULE PO SCH ×3 (03:22→17:52)
[2020-08-17] MEDS: NORMAL SALINE 1000 ML 1,000 ML IV PRN ×2 (03:23→18:40)
[2020-08-17] MEDS: BACLOFEN 10 MG TABLET PO SCH ×2 (03:26→11:03)
[2020-08-17] MEDS: HEPARIN SOD (PORCINE) 5,000 UNIT/ML 1 ML VIAL SUBCUT SCH ×3 (05:19→22:34)
[2020-08-17 09:23] LABS: HEMATOCRIT 34.1 % (36.0-47.0); HEMOGLOBIN 11.3 g/dL (12.0-15.5); MEAN CORPUSCULAR HEMOGLOBIN 29.3 pg (27.0-33.4); MEAN CORPUSCULAR HGB CONC 33.1 g/dL (32.0-36.0); MEAN CORPUSCULAR VOLUME 88 fl (80-97); PLATELET COUNT 205 10^3/uL (150-450); RED BLOOD COUNT 3.86 10^6/uL (3.72-5.28); WHITE BLOOD COUNT 5.8 10^3/uL (4.0-10.5)
[2020-08-17 09:48] LABS: ALKALINE PHOSPHATASE 510 U/L (38-126); ANION GAP 5 (5-19); ASPARTATE AMINO TRANSFERASE 274 U/L (14-36); BILIRUBIN,DIRECT 1.8 mg/dL (0.0-0.4); BILIRUBIN,TOTAL 2.4 mg/dL (0.2-1.3); BLOOD UREA NITROGEN 8 mg/dL (7-20); CALCIUM 8.6 mg/dL (8.4-10.2); CARBON DIOXIDE 26 mmol/L (22-30); CHLORIDE 107 mmol/L (98-107); GLUCOSE 107 mg/dL (75-110); POTASSIUM 4.1 mmol/L (3.6-5.0); TOTAL PROTEIN 5.9 g/dL (6.3-8.2)
[2020-08-17] MEDS: METFORMIN HCL 500 MG TABLET PO SCH ×3 (10:28→16:50)
[2020-08-17] MEDS: INSULIN REG, HUMAN 100 UNIT/ML 3 ML VIAL (PYX) SUBCUT SCH ×4 (10:28→22:29)
[2020-08-17] MEDS: DOCUSATE SODIUM 100 MG CAPSULE PO SCH ×2 (10:32→17:52)
[2020-08-17] MEDS: CHOLECALCIFEROL (D3) 1,000 UNIT (25 MCG) TABLET PO SCH (11:03)
[2020-08-17] MEDS: METOPROLOL TARTRATE 50 MG TABLET PO SCH ×2 (11:03→17:52)
[2020-08-17] MEDS: FAMOTIDINE 20 MG TABLET PO SCH (11:43)
[2020-08-17] MEDS: OMEGA-3 ACID ETHYL ESTERS 1 GM CAPSULE PO SCH (11:43)
[2020-08-17] MEDS: FLUTICASONE NASAL SPRAY 50 MCG/SPRY 120 SPRAY/16 GM NASL SCH (11:43)
[2020-08-17] MEDS: CLONAZEPAM 1 MG TABLET PO PRN (11:58)
[2020-08-17] MEDS ORDERED: HALOPERIDOL LACTATE INJ 5 MG/1 ML VIAL IV PRN ×2 (12:06→15:38)
[2020-08-17] MEDS: LIDOCAINE 5% (700 MG) TRANSDERMAL ADH..PATCH TP SCH (14:00)
[2020-08-17] MEDS ORDERED: NORMAL SALINE 1000 ML 1,000 ML IV ONE (14:15)
--- NOTE | 2020-08-17 15:25 | PDOC PROGRESS REPORT ---
Subjective Progress Note for:: 08/17/20 Subjective:: The patient is an 85-year-old female with a past medical history of hypertension, hyperlipidemia, DM 2, arthritis, anxiety, depression, and L1 compression fracture who was admitted 08/14/2020 with intractable back pain secondary to L1 lumbar vertebrae compression fracture. She was incidentally found to have elevated LFTs. Patient was seen on morning rounds. She is found resting inbed, comfortably, on room air. She was sleeping, but woke easily when I said her name. She startles and then begins to cry, when asked why she is crying, she states that she thought she was . She tells me that she was at peace and now that she is awake, she is "scared because I thought I was ." Reassurance provided. Discussed that the patient was likely sleeping soundly due to pain medications. Patient tells me that she does not want any pain medications because, "I don't have any pain; its all gone." Per nursing, the patient has made some bizarre statements and was indicated both visual and auditory hallucinations (reportedly speaking to people who were not present the room). At the time of my visit, the patient was A&O x4 and aside from above, answers all questions appropriately. She denies fever, chills, chest pain, palpitation, dyspnea, abdominal pain, nausea and vomiting. She has no other questions or concerns at this time. Reason For Visit: INTRACTABLE BACK PAIN, L1 COMPRESSION FRACTURE Physical Exam Vital Signs: Temp Pulse Resp BP Pulse Ox 98.4 F 105 H 21 H 153/92 H 100 08/17/20 11:58 08/17/20 11:58 08/17/20 11:58 08/17/20 11:58 08/17/20 11:58 Intake & Output 08/16/20 08/17/20 08/18/20 06:59 06:59 06:59 Intake Total 3290 60 10 Balance 3290 60 10 Weight 51.7 kg 54.3 kg General appearance: PRESENT: no acute distress, cooperative, well-developed, well-nourished Head exam: PRESENT: atraumatic, normocephalic Eye exam: PRESENT: conjunctiva pink, EOMI, PERRLA. ABSENT: scleral icterus Mouth exam: PRESENT: moist, tongue midline Teeth exam: PRESENT: dental caries, poor dentation Respiratory exam: PRESENT: clear to auscultation damien, symmetrical, unlabored. A BSENT: rales, rhonchi, wheezes Cardiovascular exam: PRESENT: RRR, +S1, +S2. ABSENT: diastolic murmur, rubs, systolic murmur Pulses: PRESENT: normal dorsalis pedis pul Vascular exam: PRESENT: normal capillary refill Extremities exam: PRESENT: full ROM. ABSENT: calf tenderness, clubbing, pedal edema Neurological exam: PRESENT: alert, awake, oriented to person, oriented to place, oriented to time, oriented to situation, CN II-XII grossly intact. ABSENT: motor sensory deficit Psychiatric exam: PRESENT: appropriate affect, other - Labile mood. ABSENT: homicidal ideation, suicidal ideation Focused psych exam: PRESENT: other - Hallucinations Skin exam: PRESENT: dry, intact, warm. ABSENT: cyanosis, rash Results Laboratory Results: 08/17/20 09:10 08/17/20 09:10 08/17/20 08/17/20 08/17/20 09:10 09:10 12:25 WBC 5.8 RBC 3.86 Hgb 11.3 L Hct 34.1 L MCV 88 MCH 29.3 MCHC 33.1 RDW 15.0 H Plt Count 205 Sodium 137.8 Potassium 4.1 Chloride 107 Carbon Dioxide 26 Anion Gap 5 BUN 8 Creatinine 0.56 Est GFR ( Amer) > 60 Glucose 107 Calcium 8.6 Total Bilirubin 2.4 H AST 274 H Alkaline Phosphatase 510 H Ammonia < 8.7 L Total Protein 5.9 L Albumin 3.0 L 08/14/20 12:13 Troponin I 0.030 Impressions: Chest X-Ray 08/14/20 11:27 IMPRESSION: No evidence of acute cardiopulmonary abnormality. Abdomen/Pelvis CT 08/14/20 11:28 IMPRESSION: 1. No evidence of urolithiasis or obstructive uropathy. 2. L1 vertebral body compression deformity with retropulsed component is progressed relative to 07/12/2020 MR imaging. Abdomen MRI 08/14/20 15:36 IMPRESSION: NORMAL HEPATOBILIARY SYSTEM. NO STONES OR COMMON DUCT ABNORMALITIES. CHRONIC AND INCIDENTAL FINDINGS INCLUDE A 3.7 CM LEFT OVARIAN CYST. GIVEN POSTMENOPAUSAL STATE, RECOMMEND FOLLOW-UP SONOGRAPHIC EVALUATION IN 12 MONTHS. Lumbar Spine MRI 08/14/20 15:36 IMPRESSION: Progression in a previously demonstrated L1 vertebral body compression deformity with increased retropulsion resulting in near complete effacement of the CSF signal at this level. This also effects significant neural foraminal stenosis at the T12/L1 and L1/2 levels as detailed above. Assessment and Plan - Diagnosis (1) Compression fracture of L1 lumbar vertebra Qualifiers: Encounter type: subsequent encounter Fracture healing: with nonunion Qualified Code(s): S32.010K - Wedge compression fracture of first lumbar vertebra, subsequent encounter for fracture with nonunion Is this a current diagnosis for this admission?: Yes Plan: MRI Lumbar spine shows L1 vertebral body compression deformit w/ increased retropulsion resulting near complete effacement of CSF signal. T12/L1 and L1/2 neural foraminal stenosis. Admitted to the medical floor. Orthopedics is consulted; appreciate Dr. Nieto's assistance. Patient is not a candidate for surgical or IR intervention at this time. Recommend outpatient follow up w/ Dr. Ward. Duragesic 12 mcg / 24-hour patch Avoid as needed narcotics secondary to confusion Lidoderm patch daily. Tylenol and nonpharmacological pain. (2) Elevated liver function tests Is this a current diagnosis for this admission?: Yes Plan: Have trended down slightly Unclear etiology. MRI abdomen is negative for acute findings. Tylenol level <10 Patient admits to poor p.o. intake for several days r/t back discomfort; possibly r/t decreased fluid intake and continued medication use (duloxetine, atorvastatin). Hepatitis panel negative RUQ ultrasound pending Ammonia normal Holding heptatoxic medications. Continue IV fluids. Follow LFTs. (3) Diabetes mellitus type 2 in nonobese Is this a current diagnosis for this admission?: Yes Plan: A1C 7.6% Continue home dose metformin. Patient is placed on a consistent carb diet. Accu-Cheks before meals and at bedtime with Humalog for sliding scale coverage. Hypoglycemia protocol in place. (4) Hyperlipidemia Qualifiers: Hyperlipidemia type: unspecified Qualified Code(s): E78.5 - Hyperlipidemia, unspecified Is this a current diagnosis for this admission?: Yes Plan: Holding statin therapy r/t elevated LFTs. Continue home dose Lovaza. Cardiac diet. (5) Hypertension Qualifiers: Hypertension type: essential hypertension Qualified Code(s): I10 - Essential (primary) hypertension Is this a current diagnosis for this admission?: Yes Plan: Slightly elevated but acceptable. Provide appropriate pain management. Continue home dose Metoprolol. Cardiac/CC4 diet. (6) Intractable low back pain Is this a current diagnosis for this admission?: Yes Plan: Secondary to #1 Management as above. (7) COVID-19 virus infection Is this a current diagnosis for this admission?: Yes Plan: Recently tested positive w/ COVID19 (07/17/20). Asymptomatic. Patient requests retest for clearance. Isolation per [facility] protocol. (8) Altered mental status Qualifiers: Altered mental status type: disorientation Qualified Code(s): R41.0 - Disorientation, unspecified Is this a current diagnosis for this admission?: Yes Plan: Patient noted to be quite lethargic. Startle reflex and labile mood upon my assessment. Nursing reports auditory and visual hallucinations. LFTs are slightly elevated, however, do not feel that they are to the extent to cause any mental status changes. Ammonia is normal. Likely secondary to narcotics for management of intractable back pain. Head CT is pending. During prior admissions, patient and family have indicated depression. She has had bizarre statements and behaviors during those admissions as well. We will ask mental health services to evaluate for underlying mental health disorder. - Time Time Spent with patient: 35 or more minutes Medications reviewed and adjusted accordingly: Yes Anticipated Discharge Disposition: Senior Living Facility Anticipated Discharge Timeframe: undetermined
[2020-08-17] MEDS ORDERED: HALOPERIDOL LACTATE INJ 5 MG/1 ML VIAL ONE (15:40)
[2020-08-17] MEDS ORDERED: FENTANYL 12 MCG/HR PATCH.TD72 TD ONE (16:00)
[2020-08-17] MEDS ORDERED: ZIPRASIDONE MESYLATE INJ/PF 20 MG SDV IM ONE (16:30)
--- NOTE | 2020-08-17 17:15 | RADIOLOGY REPORT (SQ) ---
EXAM DESCRIPTION: U/S ABDOMEN LIMITED W/O DOP IMAGES COMPLETED DATE/TIME: 08/17/2020 3:09 pm REASON FOR STUDY: elevated LFT COMPARISON: None. TECHNIQUE: Dynamic and static grayscale images acquired of the abdomen and recorded on PACS. Additio nal selected color Doppler and spectral images recorded. LIMITATIONS: None. FINDINGS: PANCREAS: Not visualized. Poor acoustical window. LIVER: No masses. Echotexture normal. LIVER VASCULATURE: Normal directional flow of the main portal vein and hepatic veins. GALLBLADDER: No stones. Normal wall thickness. No pericholecystic fluid. ULTRASOUND-DETECTED FERRIS'S SIGN: Negative. INTRAHEPATIC DUCTS AND COMMON DUCT: CBD and intrahepatic ducts normal caliber. No filling defects. INFERIOR VENA CAVA: Normal flow. AORTA: No aneurysm. RIGHT KIDNEY: Normal size. Normal echogenicity. No solid or suspicious masses. No hydronephrosis. No calcifications. 2.5 cm cyst. PERITONEAL AND RIGHT PLEURAL SPACE: No ascites or effusions. OTHER: No other significant findings. IMPRESSION: NORMAL RIGHT UPPER QUADRANT ULTRASOUND. TECHNICAL DOCUMENTATION: JOB ID: [id number] 2010 [facility]- All Rights Reserved Reading location - IP/workstation name: [email or web address]
--- NOTE | 2020-08-17 20:19 | RADIOLOGY REPORT (SQ) ---
EXAM DESCRIPTION: CT HEAD WITHOUT IV CONTRAST COMPLETED DATE/TME: 08/17/2020 00:00 CLINICAL HISTORY: 85 years, Female, AMS COMPARISON: None. TECHNIQUE: Images stored on PACS. All CT scanners at this facility use dose modulation, iterative reconstruction, and/or weight based dosing when appropriate to reduce radiation dose to as low as reasonably achievable (ALARA). EXAM DESCRIPTION: CLINICAL HISTORY: AMS COMPARISON: None Available TECHNIQUE: Contiguous axial CT images of the head were obtained. Coronal and sagittal reconstructions were created from the axial data. This exam was performed according to our departmental dose-optimization program, which includes automated exposure control, adjustment of the mA and/or kV according to patient size and/or use of iterative reconstruction technique. FINDINGS: There is no evidence of acute mass, mass effect, midline shift or hemorrhage. The ventricles and extra-axial CSF spaces are unremarkable. The brain parenchyma appears normal for the patient's age. No acute abnormalities of the bones is seen. IMPRESSION: No acute intracranial abnormality.
[2020-08-17] MEDS: PHARMACY COMMUNICATION ORDER MC SCH (22:40)
[2020-08-18] MEDS: BACLOFEN 10 MG TABLET PO SCH ×4 (03:24→22:27)
[2020-08-18] MEDS: FAMOTIDINE 20 MG TABLET PO SCH ×3 (03:25→22:26)
[2020-08-18] MEDS: GABAPENTIN 100 MG CAPSULE PO SCH ×4 (03:25→16:53)
[2020-08-18] MEDS: HEPARIN SOD (PORCINE) 5,000 UNIT/ML 1 ML VIAL SUBCUT SCH ×3 (05:51→22:28)
[2020-08-18 06:44] LABS: HEMATOCRIT 37.1 % (36.0-47.0); HEMOGLOBIN 12.2 g/dL (12.0-15.5); MEAN CORPUSCULAR HEMOGLOBIN 29.8 pg (27.0-33.4); MEAN CORPUSCULAR VOLUME 90 fl (80-97); PLATELET COUNT 189 10^3/uL (150-450); RED BLOOD COUNT 4.11 10^6/uL (3.72-5.28); RED CELL DISTRIBUTION WIDTH 15.2 % (11.5-14.0); WHITE BLOOD COUNT 7.4 10^3/uL (4.0-10.5)
[2020-08-18 07:09] LABS: ALBUMIN 3.1 g/dL (3.5-5.0); ALKALINE PHOSPHATASE 546 U/L (38-126); ANION GAP 14 (5-19); ASPARTATE AMINO TRANSFERASE 282 U/L (14-36); BILIRUBIN,DIRECT 2.5 mg/dL (0.0-0.4); BILIRUBIN,TOTAL 3.3 mg/dL (0.2-1.3); BLOOD UREA NITROGEN 4 mg/dL (7-20); CALCIUM 8.7 mg/dL (8.4-10.2); CARBON DIOXIDE 18 mmol/L (22-30); CHLORIDE 108 mmol/L (98-107); GLUCOSE 105 mg/dL (75-110); TOTAL PROTEIN 6.1 g/dL (6.3-8.2)
[2020-08-18] MEDS: INSULIN REG, HUMAN 100 UNIT/ML 3 ML VIAL (PYX) SUBCUT SCH ×4 (09:06→22:27)
[2020-08-18] MEDS: METOPROLOL TARTRATE 50 MG TABLET PO SCH ×3 (09:06→17:00)
[2020-08-18] MEDS: CHOLECALCIFEROL (D3) 1,000 UNIT (25 MCG) TABLET PO SCH (09:06)
[2020-08-18] MEDS: ASPIRIN 81 MG TABLET, ENT COATED PO SCH (09:06)
[2020-08-18] MEDS: METFORMIN HCL 500 MG TABLET PO SCH ×3 (09:12→16:53)
[2020-08-18] MEDS: LIDOCAINE 5% (700 MG) TRANSDERMAL ADH..PATCH TP SCH (09:37)
[2020-08-18] MEDS ORDERED: HALOPERIDOL LACTATE INJ 5 MG/1 ML VIAL IM PRN (09:52)
[2020-08-18] MEDS ORDERED: PROMETHAZINE HCL INJ 25 MG/1 ML VIAL IV PRN (09:54)
[2020-08-18] MEDS ORDERED: ACETAMINOPHEN 325 MG TABLET PO PRN (10:09)
--- NOTE | 2020-08-18 10:19 | PDOC PROGRESS REPORT ---
Subjective Progress Note for:: 08/18/20 Subjective:: Patient has been agitated. She has been picking things including attempts to kick staff. She has a very dry mouth. She is disoriented as well. Breathing is comfortable however. Reason For Visit: INTRACTABLE BACK PAIN, L1 COMPRESSION FRACTURE Physical Exam Vital Signs: Temp Pulse Resp BP Pulse Ox 98.2 F 105 H 24 H 156/73 H 95 08/18/20 07:15 08/18/20 07:15 08/18/20 07:15 08/18/20 07:15 08/18/20 07:15 Intake & Output 08/17/20 08/18/20 08/19/20 06:59 06:59 06:59 Intake Total 60 2460 Balance 60 2460 Weight 54.3 kg 52.4 kg General appearance: PRESENT: thin, well-developed, other - Moderate distress wit h agitation. ABSENT: cooperative Head exam: PRESENT: atraumatic, normocephalic Eye exam: PRESENT: conjunctiva pink, scleral icterus Ear exam: PRESENT: normal external ear exam. ABSENT: bleeding, drainage Mouth exam: PRESENT: dry mucosa - Very dry, tongue midline Teeth exam: PRESENT: poor dentation Respiratory exam: PRESENT: clear to auscultation damien, symmetrical, unlabored. ABSENT: rales, rhonchi, tachypnea, wheezes Cardiovascular exam: PRESENT: +S1, +S2, tachycardia. ABSENT: bradycardia, diastolic murmur, irregular rhythm, systolic murmur GI/Abdominal exam: PRESENT: normal bowel sounds, soft. ABSENT: distended, tenderness Rectal exam: PRESENT: deferred Gentrourinary exam: ABSENT: indwelling catheter Musculoskeletal exam: PRESENT: normal inspection. ABSENT: deformity, dislocation Neurological exam: PRESENT: alert, altered, awake, oriented to person, CN II-XII grossly intact. ABSENT: oriented to place, oriented to situation Psychiatric exam: PRESENT: agitated, anxious, unusual affect Focused psych exam: PRESENT: restlessness. ABSENT: delusional, paranoid Results Laboratory Results: 08/18/20 05:54 08/18/20 05:54 08/17/20 08/18/20 08/18/20 12:25 05:54 05:54 WBC 7.4 RBC 4.11 Hgb 12.2 Hct 37.1 MCV 90 MCH 29.8 MCHC 33.0 RDW 15.2 H Plt Count 189 Sodium 139.9 Potassium 4.0 Chloride 108 H Carbon Dioxide 18 L Anion Gap 14 BUN 4 L Creatinine 0.40 L Est GFR ( Amer) > 60 Glucose 105 Calcium 8.7 Total Bilirubin 3.3 H AST 282 H Alkaline Phosphatase 546 H Ammonia < 8.7 L Total Protein 6.1 L Albumin 3.1 L 08/14/20 12:13 Troponin I 0.030 Impressions: Chest X-Ray 08/14/20 11:27 IMPRESSION: No evidence of acute cardiopulmonary abnormality. Abdomen/Pelvis CT 08/14/20 11:28 IMPRESSION: 1. No evidence of urolithiasis or obstructive uropathy. 2. L1 vertebral body compression deformity with retropulsed component is progressed relative to 07/12/2020 MR imaging. Abdomen MRI 08/14/20 15:36 IMPRESSION: NORMAL HEPATOBILIARY SYSTEM. NO STONES OR COMMON DUCT ABNORMALITIES. CHRONIC AND INCIDENTAL FINDINGS INCLUDE A 3.7 CM LEFT OVARIAN CYST. GIVEN POSTMENOPAUSAL STATE, RECOMMEND FOLLOW-UP SONOGRAPHIC EVALUATION IN 12 MONTHS. Lumbar Spine MRI 08/14/20 15:36 IMPRESSION: Progression in a previously demonstrated L1 vertebral body compression deformity with increased retropulsion resulting in near complete effacement of the CSF signal at this level. This also effects significant neural foraminal stenosis at the T12/L1 and L1/2 levels as detailed above. Abdomen Ultrasound 08/17/20 00:00 IMPRESSION: NORMAL RIGHT UPPER QUADRANT ULTRASOUND. Head CT 08/17/20 00:00 IMPRESSION: No acute intracranial abnormality. Assessment and Plan - Diagnosis (1) Acute metabolic encephalopathy Is this a current diagnosis for this admission?: Yes Plan: The exact etiology is unclear. Could be related to her pain medications with underlying liver dysfunction. She does have a history of Covid-19 infection but the encephalopathy is an acute issue. She does have significant underlying anxiety with anxiety. Transaminases and bilirubin are still increased. The patient is still agitated. (2) Elevated liver function tests Is this a current diagnosis for this admission?: Yes Plan: Have trended down slightly Unclear etiology. MRI abdomen is negative for acute findings. Tylenol level <10 Patient admits to poor p.o. intake for several days r/t back discomfort; possibly r/t decreased fluid intake and continued medication use (duloxetine, atorvastatin). Hepatitis panel negative RUQ ultrasound pending Ammonia normal Holding heptatoxic medications. Continue IV fluids. Follow LFTs. 08/18/2020-still not a consistent trend. Total bilirubin is actually increased. Alkaline phosphatase and ALT are slightly while AST is slightly. No significant manager of change the last 3 days. We will continue IV fluids. Holding hepatotoxic medications. Continue to monitor. (3) Compression fracture of L1 lumbar vertebra Qualifiers: Encounter type: subsequent encounter Fracture healing: with nonunion Qualified Code(s): S32.010K - Wedge compression fracture of first lumbar ve rtebra, subsequent encounter for fracture with nonunion Is this a current diagnosis for this admission?: Yes Plan: MRI Lumbar spine shows L1 vertebral body compression deformit w/ increased retropulsion resulting near complete effacement of CSF signal. T12/L1 and L1/2 neural foraminal stenosis. Admitted to the medical floor. Orthopedics is consulted; appreciate Dr. Nieto's assistance. Patient is not a candidate for surgical or IR intervention at this time. Recommend outpatient follow up w/ Dr. Ward. Duragesic 12 mcg / 24-hour patch Avoid as needed narcotics secondary to confusion Lidoderm patch daily. Tylenol and nonpharmacological pain. 08/18/2020-because of the elevated LFTs I have decreased the max acetaminophen dose to 2 g in 24 hours. If the LFTs do not improve consider holding all acetaminophen. No surgical intervention at this time. (4) Intractable low back pain Is this a current diagnosis for this admission?: Yes Plan: Secondary to #1 Management as above. (5) COVID-19 virus infection Is this a current diagnosis for this admission?: Yes Plan: Recently tested positive w/ COVID19 (07/17/20). Asymptomatic. Patient requests retest for clearance. Isolation per [facility] protocol. 08/18/2020-the test was negative. Patient will not be cleared to leave 3 N. Suggest she remains IMCU. (6) Hyperglycemia due to diabetes mellitus Is this a current diagnosis for this admission?: Yes Plan: Currently on metformin 500 mg twice daily and sliding scale. Excellent glucose control. Continue same regimen. (7) Hyperlipidemia Qualifiers: Hyperlipidemia type: unspecified Qualified Code(s): E78.5 - Hyperlipidemia, unspecified Is this a current diagnosis for this admission?: Yes Plan: Holding statin therapy r/t elevated LFTs. Continue home dose Lovaza. Cardiac diet. (8) Hypertension Qualifiers: Hypertension type: essential hypertension Qualified Code(s): I10 - Essential (primary) hypertension Is this a current diagnosis for this admission?: Yes Plan: Slightly elevated but acceptable. Provide appropriate pain management. Continue home dose Metoprolol. Cardiac/CC4 diet. 08/18/2020-still slightly higher than desired. Unsure if this is due to her agitation. We will add low-dose lisinopril (10 mg daily). With her diabetes it is appropriate to CHRISTIAN inhibitor. - Time Time Spent with patient: 15-24 minutes Medications reviewed and adjusted accordingly: Yes Anticipated Discharge Disposition: Unsure Anticipated Discharge Timeframe: Unknown
[2020-08-18] MEDS: RINGERS SOLUTION,LACTATED 1,000 ML IV PRN ×2 (10:35→20:14)
[2020-08-18] MEDS: OMEGA-3 ACID ETHYL ESTERS 1 GM CAPSULE PO SCH (11:20)
[2020-08-18] MEDS: FLUTICASONE NASAL SPRAY 50 MCG/SPRY 120 SPRAY/16 GM NASL SCH (11:20)
[2020-08-18] MEDS: DOCUSATE SODIUM 100 MG CAPSULE PO SCH ×2 (11:20→17:00)
[2020-08-18] MEDS ORDERED: ENALAPRILAT DIHYDRATE INJ/PF 2.5 MG/2 ML SDV IV PRN (16:57)
[2020-08-18] MEDS: METOPROLOL TARTRATE PF/INJ 5 MG/5 ML SDV IV PRN (17:47)
[2020-08-18] MEDS: KETOROLAC TROMETHAMINE INJ/PF 30 MG/1 ML SDV IV PRN (20:14)
[2020-08-18] MEDS: MELATONIN 5 MG TABLET PO PRN (22:29)
[2020-08-18] MEDS: PHARMACY COMMUNICATION ORDER MC SCH (22:29)
[2020-08-19] MEDS: GABAPENTIN 100 MG CAPSULE PO SCH ×3 (00:24→22:07)
[2020-08-19] MEDS: CLONAZEPAM 1 MG TABLET PO PRN (00:30)
[2020-08-19] MEDS: METOPROLOL TARTRATE PF/INJ 5 MG/5 ML SDV IV PRN ×2 (05:51→12:18)
[2020-08-19] MEDS: HEPARIN SOD (PORCINE) 5,000 UNIT/ML 1 ML VIAL SUBCUT SCH ×3 (05:55→21:43)
[2020-08-19 06:27] LABS: PROTHROMBIN TIME 15.4 SEC (11.4-15.4)
[2020-08-19 06:29] LABS: D-DIMER 2.82 ug/mL (0.00-0.50)
[2020-08-19 06:45] LABS: ALKALINE PHOSPHATASE 568 U/L (38-126); ANION GAP 11 (5-19); ASPARTATE AMINO TRANSFERASE 292 U/L (14-36); BILIRUBIN,TOTAL 5.1 mg/dL (0.2-1.3); BLOOD UREA NITROGEN 4 mg/dL (7-20); C-REACTIVE PROTEIN 45.1 mg/L (<10.0); CALCIUM 9.1 mg/dL (8.4-10.2); CARBON DIOXIDE 20 mmol/L (22-30); CHLORIDE 107 mmol/L (98-107); GLUCOSE 110 mg/dL (75-110); POTASSIUM 3.6 mmol/L (3.6-5.0); TOTAL PROTEIN 5.9 g/dL (6.3-8.2)
[2020-08-19] MEDS: RINGERS SOLUTION,LACTATED 1,000 ML IV PRN ×2 (07:36→22:15)
[2020-08-19] MEDS: INSULIN REG, HUMAN 100 UNIT/ML 3 ML VIAL (PYX) SUBCUT SCH ×3 (08:31→22:14)
[2020-08-19] MEDS: KETOROLAC TROMETHAMINE INJ/PF 30 MG/1 ML SDV IV PRN (08:58)
[2020-08-19] MEDS ORDERED: MAGNESIUM SULFATE 4 GM/100 ML RTUPB IV ONE (09:35)
[2020-08-19] MEDS: METFORMIN HCL 500 MG TABLET PO SCH (09:43)
[2020-08-19] MEDS ORDERED: METOPROLOL TARTRATE 50 MG TABLET PO SCH (10:00)
[2020-08-19] MEDS ORDERED: GLUCAGON,HUMAN RECOMB 1 MG INJ SUBCUT PRN (10:27)
[2020-08-19] MEDS ORDERED: MAGNESIUM SULFATE/D5W 0 GM/0 ML RTUPB IV ONE (10:35)
[2020-08-19] MEDS: LIDOCAINE 5% (700 MG) TRANSDERMAL ADH..PATCH TP SCH (10:39)
--- NOTE | 2020-08-19 15:33 | RADIOLOGY REPORT (SQ) ---
EXAM DESCRIPTION: NM HIDA SCAN IMAGES COMPLETED DATE/TIME: 08/19/2020 2:54 pm REASON FOR STUDY: concern for biliary obstruction COMPARISON: MRCP 08/14/2020 and abdominal ultrasound 08/17/2020 RADIONUCLIDE AND DOSE: DOSAGE RADIONUCLIDE: 5.39 millicuries Tc99m Mebrofenin. DOSAGE MORPHINE: Not required. The route of agent administration: Intravenous TECHNIQUE: Serial imaging right upper quadrant up to 60 minutes following injection of radionuclide. Patient imaged AP and Right Lateral. LIMITATIONS: Patient unable to remain still during imaging and declined to continue planar imaging a t frame 27. FINDINGS: LIVER: Normal visualization without areas of photopenia. INTRA-HEPATIC BILE DUCTS: Limited dynamic planar imaging was performed. COMMON BILE DUCT: Limited dynamic planar imaging was performed. GALLBLADDER: Planar imaging was discontinued prior to visualization of the gallbladder. OTHER: Delayed imaging demonstrates radiotracer within the gallbladder, common bile duct, and intesti alyssa. IMPRESSION: Limited examination. No evidence of biliary obstruction. TECHNICAL DOCUMENTATION: JOB ID: [id number] 2010 [employer]- All Rights Reserved Reading location - IP/workstation name: [email or web address]
[2020-08-19] MEDS ORDERED: NORMAL SALINE 1000 ML 1,000 ML IV ONE (15:51)
--- NOTE | 2020-08-19 16:44 | PDOC CONSULTATION ---
Consultation Consult Date: 08/19/20 Attending physician:: ANNMARIE MATTHEW Provider Consulted: JANET TOVAR Consult reason:: Elevated liver function studies History of Present Illness Admission Date/PCP: 08/14/20 20:15 SLOANE CERDA MD History of Present Illness: MANNY RENTERIA is a 85 year old female Specialized to [facility] for approximately 5 days for altered mentation, back pain. Patient was diagnosed with an L1 compression fracture, managed nonoperatively. For the last several days she has had an extensive radiographic work-up including ultrasounds of the abdomen, CT scans of the abdomen and MRI scan of the abdomen, hepatobiliary scan and extensive laboratory studies which have failed to explain patient's increasing bilirubin from 1.7-5.1. Liver function studies elevated but stabilizing; bicarb down to 20 from 25. Patient is poor historian, remains disoriented and offered refusing care. Patient had nausea and vomiting but attributes that to ensure consumption. Surgery was consulted for opinion regarding elevated liver function studies. Past Medical History Cardiac Medical History: Reports: Hyperlipidema, Hypertension Denies: Congestive Heart Failure, Coronary Artery Disease, Myocardial Infarction Pulmonary Medical History: Denies: Asthma, Bronchitis, Chronic Obstructive Pulmonary Disease (COPD), Sleep Apnea EENT Medical History: Denies: Cataracts, Ears - Hearing aids Neurological Medical History: Denies: Hemorrhagic CVA, Ischemic CVA, Migraine, Seizures Endocrine Medical History: Reports: Diabetes Mellitus Type 2 Denies: Diabetes Mellitus Type 1, Hyperthyroidism, Hypothyroidism Renal/ Medical History: Denies: Chronic Kidney Disease, Nephrolithiasis Malignancy Medical History: Reports: None GI Medical History: Reports: Gastroesophageal Reflux Disease Denies: Cirrhosis, Crohn's Disease, Hepatitis, Peptic Ulcer Disease, Ulcerative Colitis Musculoskeltal Medical History: Reports: Arthritis Denies: Fibromyalgia, Gout Skin Medical History: Denies: Eczema, Psoriasis Psychiatric Medical History: Reports: General Anxiety Disorder Denies: Alcohol Dependency, Depression, Substance Abuse, Tobacco Dependency Traumatic Medical History: Reports: None Hematology: Reports: Anemia Denies: Bleeding Tendencies Infectious Medical History: Reports: None Past Surgical History Past Surgical History: Previous colonoscopy 4 years ago Past Surgical History: Reports: None Social History Lives with: Family Smoking Status: Former Smoker Electronic Cigarette use?: No Frequency of Alcohol Use: Occasional Hx Recreational Drug Use: No Drugs: None Hx Prescription Drug Abuse: No - Advance Directive Resuscitation Status: Full Code Family History Family History: None, CAD, CVA, DM, Hypertension, Malignancy Parental Family History Reviewed: No Children Family History Reviewed: No Sibling(s) Family History Reviewed.: No Medication/Allergy Home Medications: Atorvastatin Calcium [Lipitor 40 mg Tablet] 40 mg PO QHS 08/14/20 Hydromorphone HCl [Dilaudid 2 mg Tablet] 0.5 mg PO Q8HP PRN 08/14/20 Lidocaine [Lidoderm 5% (700 mg) Transdermal Patch] 1 patch TP DAILY 08/14/20 Metoprolol Tartrate [Lopressor] 50 mg PO BID 08/14/20 Aspirin [Ecotrin 81 mg EC Tablet] 81 mg PO DAILY 08/15/20 Baclofen [Baclofen 10 mg Tablet] 10 mg PO BID 08/15/20 Cholecalciferol (Vitamin D3) [Vitamin D3] 1,000 unit PO DAILY 08/15/20 Duloxetine HCl 20 mg PO DAILY 08/15/20 Fluticasone Propionate [Flonase Nasal [place] 50 Mcg/[place] 16 gm] 1 spray NASL DAILY 08/15/20 Naproxen 375 mg PO BIDBS 08/15/20 [place]-3/Dha/Epa/Fish Oil [Fish Oil 1,000 mg Softgel] 1 each PO DAILY 08/15/20 Sitagliptin Phos/Metformin HCl [Janumet Xr 50-1,000 mg Tablet] 1 each PO DAILY 08/15/20 Allergies/Adverse Reactions: No Known Drug Allergies Allergy (Verified 07/08/20 12:01) Review of Systems ROS unobtainable: Due to mental status, Other - Patient's cognitive function is paired, due to presumed encephalopathy of unclear etiology. Physical Exam Vital Signs: Temp Pulse Resp BP Pulse Ox 98.2 F 109 H 17 157/80 H 97 08/19/20 11:05 08/19/20 11:05 08/19/20 11:05 08/19/20 11:05 08/19/20 11:05 Intake & Output 08/18/20 08/19/20 08/20/20 06:59 06:59 06:59 Intake Total 2460 3000 118 Balance 2460 3000 118 Weight 52.4 kg 53.3 kg General appearance: PRESENT: mild distress Head exam: PRESENT: normocephalic Eye exam: PRESENT: EOMI Mouth exam: PRESENT: dry mucosa Neck exam: PRESENT: full ROM Respiratory exam: PRESENT: clear to auscultation damien Cardiovascular exam: PRESENT: RRR Pulses: PRESENT: normal carotid pulses, normal femoral pulses GI/Abdominal exam: PRESENT: other - Abdomen is soft no peritoneal signs or rigidity no organomegaly. There are no groin hernias. Rectal exam: PRESENT: deferred Musculoskeletal exam: PRESENT: full ROM, other - Patient ambulated to the bathroom with minimal assistance Neurological exam: PRESENT: oriented to person, oriented to place Psychiatric exam: PRESENT: anxious Skin exam: PRESENT: dry Results Laboratory Results: 08/18/20 05:54 08/19/20 05:30 08/19/20 05:30 Sodium 138.3 Potassium 3.6 Chloride 107 Carbon Dioxide 20 L Anion Gap 11 BUN 4 L Creatinine 0.44 L Est GFR ( Amer) > 60 Glucose 110 Calcium 9.1 Magnesium 1.5 L Total Bilirubin 5.1 H AST 292 H Alkaline Phosphatase 568 H C-Reactive Protein 45.1 H Total Protein 5.9 L Albumin 3.0 L 08/14/20 13:44 Blood Blood Culture - Final NO GROWTH IN 5 DAYS 08/14/20 12:13 Blood Blood Culture - Final NO GROWTH IN 5 DAYS 08/14/20 12:13 Troponin I 0.030 Impressions: Chest X-Ray 08/14/20 11:27 IMPRESSION: No evidence of acute cardiopulmonary abnormality. Abdomen/Pelvis CT 08/14/20 11:28 IMPRESSION: 1. No evidence of urolithiasis or obstructive uropathy. 2. L1 vertebral body compression deformity with retropulsed component is progressed relative to 07/12/2020 MR imaging. Abdomen MRI 08/14/20 15:36 IMPRESSION: NORMAL HEPATOBILIARY SYSTEM. NO STONES OR COMMON DUCT ABNORMALITIES. CHRONIC AND INCIDENTAL FINDINGS INCLUDE A 3.7 CM LEFT OVARIAN CYST. GIVEN POSTMENOPAUSAL STATE, RECOMMEND FOLLOW-UP SONOGRAPHIC EVALUATION IN 12 MONTHS. Lumbar Spine MRI 08/14/20 15:36 IMPRESSION: Progression in a previously demonstrated L1 vertebral body compression deformity with increased retropulsion resulting in near complete effacement of the CSF signal at this level. This also effects significant neural foraminal stenosis at the T12/L1 and L1/2 levels as detailed above. Abdomen Ultrasound 08/17/20 00:00 IMPRESSION: NORMAL RIGHT UPPER QUADRANT ULTRASOUND. Head CT 08/17/20 00:00 IMPRESSION: No acute intracranial abnormality. Hepatobiliary Scan Nuclear Medicine 08/19/20 00:00 IMPRESSION: Limited examination. No evidence of biliary obstruction. Assessment & Plan - Diagnosis (1) Elevated liver function tests Is this a current diagnosis for this admission?: Yes Plan: Impression: Persistently elevated liver function studies with a pattern consistent with hepatic biliary stasis. All imaging studies including HIDA scan show no evidence of fundamental liver failure. There is no evidence of mechanical extrahepatic biliary blockage due to mass, stricture, known disease, or some other anatomic abnormality. I do not believe there is a surgical explanation for patient's serologic abnormalities Recommendations: 1. Conservative following of liver function studies. 2. Continue supportive care. 3. No indication for surgical intervention at this time; surgery will sign off; I discussed the above with the hospitalist service. Please reconsult surgery if clinically indicated (2) Acute metabolic encephalopathy Is this a current diagnosis for this admission?: Yes (3) Compression fracture of L1 lumbar vertebra Qualifiers: Encounter type: subsequent encounter Fracture healing: with nonunion Qualified Code(s): S32.010K - Wedge compression fracture of first lumbar vertebra, subsequent encounter for fracture with nonunion Is this a current diagnosis for this admission?: Yes (4) Diabetes mellitus type 2 in nonobese Is this a current diagnosis for this admission?: Yes - Time Time Spent: 30 to 50 Minutes Smoking Cessation Education: 3 to 10 minutes Medications reviewed and adjusted accordingly: Yes Anticipated discharge: Home Anticipated DC Timeframe: Other - To be determined
[2020-08-19] MEDS: BACLOFEN 10 MG TABLET PO SCH ×3 (17:51→22:12)
[2020-08-19] MEDS: ASPIRIN 81 MG TABLET, ENT COATED PO SCH (17:52)
[2020-08-19] MEDS: FAMOTIDINE 20 MG TABLET PO SCH ×3 (17:52→22:13)
[2020-08-19] MEDS: LISINOPRIL 10 MG TABLET PO SCH (17:52)
[2020-08-19] MEDS: CHOLECALCIFEROL (D3) 1,000 UNIT (25 MCG) TABLET PO SCH (17:53)
--- NOTE | 2020-08-19 20:44 | PDOC PROGRESS REPORT ---
Subjective Progress Note for:: 08/19/20 Subjective:: Agitated, combative and confused overnight requiring bilateral wrist restraints and Haldol. Today, somewhat improved though remains very confused. She has had NBNB vomiting x2 today. Reason For Visit: INTRACTABLE BACK PAIN, L1 COMPRESSION FRACTURE Physical Exam Vital Signs: Temp Pulse Resp BP Pulse Ox 98.2 F 109 H 17 157/80 H 97 08/19/20 11:05 08/19/20 11:05 08/19/20 11:05 08/19/20 11:05 08/19/20 11:05 Intake & Output 08/18/20 08/19/20 08/20/20 06:59 06:59 06:59 Intake Total 2460 3000 118 Balance 2460 3000 118 Weight 52.4 kg 53.3 kg General appearance: PRESENT: mild distress - tearful Head exam: PRESENT: atraumatic Eye exam: PRESENT: scleral icterus Mouth exam: PRESENT: dry mucosa Neck exam: ABSENT: JVD Respiratory exam: PRESENT: clear to auscultation damien Cardiovascular exam: PRESENT: RRR GI/Abdominal exam: PRESENT: normal bowel sounds, soft. ABSENT: ascites, distended, firm, guarding, hernia, mass, Combs's sign, organolmegaly, rebound, rigid, tenderness Rectal exam: ABSENT: deferred Extremities exam: ABSENT: pedal edema Musculoskeletal exam: PRESENT: ambulatory Neurological exam: PRESENT: alert, awake Psychiatric exam: PRESENT: anxious Focused psych exam: PRESENT: restlessness Results Laboratory Results: 08/18/20 05:54 08/19/20 05:30 08/19/20 05:30 Sodium 138.3 Potassium 3.6 Chloride 107 Carbon Dioxide 20 L Anion Gap 11 BUN 4 L Creatinine 0.44 L Est GFR ( Amer) > 60 Glucose 110 Calcium 9.1 Magnesium 1.5 L Total Bilirubin 5.1 H AST 292 H Alkaline Phosphatase 568 H C-Reactive Protein 45.1 H Total Protein 5.9 L Albumin 3.0 L 08/14/20 13:44 Blood Blood Culture - Final NO GROWTH IN 5 DAYS 08/14/20 12:13 Blood Blood Culture - Final NO GROWTH IN 5 DAYS 08/14/20 12:13 Troponin I 0.030 Impressions: Chest X-Ray 08/14/20 11:27 IMPRESSION: No evidence of acute cardiopulmonary abnormality. Abdomen/Pelvis CT 08/14/20 11:28 IMPRESSION: 1. No evidence of urolithiasis or obstructive uropathy. 2. L1 vertebral body compression deformity with retropulsed component is progressed relative to 07/12/2020 MR imaging. Abdomen MRI 08/14/20 15:36 IMPRESSION: NORMAL HEPATOBILIARY SYSTEM. NO STONES OR COMMON DUCT ABNORMALITIES. CHRONIC AND INCIDENTAL FINDINGS INCLUDE A 3.7 CM LEFT OVARIAN CYST. GIVEN POSTMENOPAUSAL STATE, RECOMMEND FOLLOW-UP SONOGRAPHIC EVALUATION IN 12 MONTHS. Lumbar Spine MRI 08/14/20 15:36 IMPRESSION: Progression in a previously demonstrated L1 vertebral body compression deformity with increased retropulsion resulting in near complete effacement of the CSF signal at this level. This also effects significant neural foraminal stenosis at the T12/L1 and L1/2 levels as detailed above. Abdomen Ultrasound 08/17/20 00:00 IMPRESSION: NORMAL RIGHT UPPER QUADRANT ULTRASOUND. Head CT 08/17/20 00:00 IMPRESSION: No acute intracranial abnormality. Hepatobiliary Scan Nuclear Medicine 08/19/20 00:00 IMPRESSION: Limited examination. No evidence of biliary obstruction. Assessment and Plan - Plan Summary Summary: Acute metabolic encephalopathy: The exact etiology is unclear. Concern for hepatobiliary obstruction given direct hyperbilirubinemia, potentially making in-hospital delirium worse. She is unable to eat or drink due to N/V and is becoming dehydrated, which is also contributing. May be due to uncontrolled pain/anxiety. She has no history of alcohol or BZD usage at home to indicate withdrawal. - delirium precautions - fall precautions direct hyperbilirubinemia with elevated alk phos and LFTs: trending up x6 days now without clear cause. She is now developing N/V and is unable to tolerate oral intake. - surgery consulted - plan to consult GI tomorrow (no GI collect on delivery clerk today) - MRCP, RUQ US with doppler and HIDA scan have all been negative - Tylenol level <10 - Hepatitis panel negative - Ammonia normal - holding home statin/lovaza (hepatotoxic), although unlikely to be the cause - Zofran PRN N/V low back pain due to compression fracture of first lumbar vertebra: MRI Lumbar spine shows L1 vertebral body compression deformity w/ increased retropulsion resulting near complete effacement of CSF signal. T12/L1 and L1/2 neural foraminal stenosis. - pain control with gabapentin, Toradol, lidoderm patch - avoid opioids and BZD given delirium/advanced age - Orthopedic surgery and IR consulted but she is not a candidate for surgical or IR intervention at this time essential hypertension - elevated in the setting of pain, anxiety and inability to take oral medications DVT ppx: heparin - Time Time Spent with patient: 35 or more minutes Anticipated Discharge Disposition: [facility] Facility Anticipated Discharge Timeframe: within 72 hours
[2020-08-19] MEDS: PHARMACY COMMUNICATION ORDER MC SCH (21:42)
[2020-08-19] MEDS: FLUTICASONE NASAL SPRAY 50 MCG/SPRY 120 SPRAY/16 GM NASL SCH (22:01)
[2020-08-19] MEDS: METOPROLOL TARTRATE 50 MG TABLET PO SCH (22:03)
[2020-08-19] MEDS: DOCUSATE SODIUM 100 MG CAPSULE PO SCH (22:08)
[2020-08-19] MEDS: OMEGA-3 ACID ETHYL ESTERS 1 GM CAPSULE PO SCH (22:12)
[2020-08-20] MEDS: GABAPENTIN 100 MG CAPSULE PO SCH ×3 (00:47→17:45)
[2020-08-20] MEDS: HEPARIN SOD (PORCINE) 5,000 UNIT/ML 1 ML VIAL SUBCUT SCH ×3 (05:17→22:58)
[2020-08-20 07:07] LABS: ALKALINE PHOSPHATASE 560 U/L (38-126); ANION GAP 9 (5-19); ASPARTATE AMINO TRANSFERASE 316 U/L (14-36); BILIRUBIN,DIRECT 4.7 mg/dL (0.0-0.4); BILIRUBIN,TOTAL 5.7 mg/dL (0.2-1.3); BLOOD UREA NITROGEN 6 mg/dL (7-20); CALCIUM 8.1 mg/dL (8.4-10.2); CARBON DIOXIDE 24 mmol/L (22-30); CHLORIDE 104 mmol/L (98-107); GLUCOSE 146 mg/dL (75-110); POTASSIUM 3.3 mmol/L (3.6-5.0); TOTAL PROTEIN 6.1 g/dL (6.3-8.2)
[2020-08-20] MEDS: RINGERS SOLUTION,LACTATED 1,000 ML IV PRN (08:20)
--- NOTE | 2020-08-20 08:33 | EKG REPORT ---
SEVERITY:- OTHERWISE NORMAL ECG - SINUS TACHYCARDIA : Confirmed by: Sahara Carrillo MD 20-Aug-2020 08:32:12
[2020-08-20] MEDS: POTASSI CL 20 MEQ/50 ML RIDER 20 MEQ/50 ML RTUPB IV SCH ×2 (09:37→13:47)
[2020-08-20] MEDS ORDERED: BENZOCAINE/MENTHOL SORE THROAT LOZENGE BUCCAL PRN (09:40)
[2020-08-20] MEDS ORDERED: PHENOL/SODIUM PHENOLATE 100 SPRAY/177 ML BOTTLE PO PRN (09:40)
[2020-08-20] MEDS ORDERED: ONDANSETRON 4 MG TAB.RAPDIS PO PRN (09:40)
[2020-08-20] MEDS: METOPROLOL TARTRATE 50 MG TABLET PO SCH ×2 (09:45→17:41)
[2020-08-20] MEDS: LIDOCAINE 5% (700 MG) TRANSDERMAL ADH..PATCH TP SCH (09:46)
[2020-08-20] MEDS: ASPIRIN 81 MG TABLET, ENT COATED PO SCH (10:00)
[2020-08-20] MEDS: CHOLECALCIFEROL (D3) 1,000 UNIT (25 MCG) TABLET PO SCH (10:00)
[2020-08-20] MEDS: FAMOTIDINE 20 MG TABLET PO SCH ×2 (10:00→22:01)
[2020-08-20] MEDS: BACLOFEN 10 MG TABLET PO SCH ×2 (10:00→22:58)
[2020-08-20] MEDS: LISINOPRIL 10 MG TABLET PO SCH (10:00)
[2020-08-20] MEDS: FLUTICASONE NASAL SPRAY 50 MCG/SPRY 120 SPRAY/16 GM NASL SCH (13:52)
--- NOTE | 2020-08-20 16:58 | RADIOLOGY REPORT (SQ) ---
EXAM DESCRIPTION: CT RT LOWER EXTREMITY WITHOUT IMAGES COMPLETED DATE/TIME: 08/20/2020 4:38 pm REASON FOR STUDY: hip pain, concern for fracture COMPARISON: None. TECHNIQUE: CT scan of the right hip performed without intravenous or oral contrast. Images reviewed with soft tissue and bone windows. Reconstructed coronal and sagittal MPR images reviewed. All susan ges stored on PACS. All CT scanners at this facility use dose modulation, iterative reconstruction, and/or weight based d osing when appropriate to reduce radiation dose to as low as reasonably achievable (ALARA). [facility]: Dose Right [facility]: CareDose [facility]: Dose Right [facility]: Teradose 4D [facility]: NotesFirst RADIATION DOSE: mGy. LIMITATIONS: None. FINDINGS: PELVIC BONES: No acute fracture. No worrisome bone lesions. VISUALIZED SPINE: No acute findings. SYMPTOMATIC HIP: No acute fracture or dislocation. No worrisome bone lesions. OPPOSITE HIP: Not included in the imaged field of view. PELVIC SOFT TISSUES: No significant findings. EXTRAPELVIC SOFT TISSUES: No significant findings. OTHER: No other significant finding. IMPRESSION: Osteopenia. No evidence of acute osseous injury. TECHNICAL DOCUMENTATION: JOB ID: [id number] Quality ID # [id number]: Final reports with documentation of one or more dose reduction techniques (e.g., Au tomated exposure control, adjustment of the mA and/or kV according to patient size, use of iterative reconstruction technique) 2010 [employer]- All Rights Reserved Reading location - IP/workstation name: [email or web address]
--- NOTE | 2020-08-20 19:41 | PDOC PROGRESS REPORT ---
Subjective Progress Note for:: 08/20/20 Subjective:: She is feeling okay. Continues to have nausea/vomiting. Unable to tolerate oral intake. Complaining of R hip pain today. Reason For Visit: INTRACTABLE BACK PAIN, L1 COMPRESSION FRACTURE Physical Exam Vital Signs: Temp Pulse Resp BP Pulse Ox 97.9 F 99 18 162/80 H 98 08/20/20 15:39 08/20/20 15:39 08/20/20 15:39 08/20/20 15:39 08/20/20 15:39 Intake & Output 08/19/20 08/20/20 08/21/20 06:59 06:59 06:59 Intake Total 3000 2118 50 Balance 3000 2118 50 Weight 53.3 kg 53 kg General appearance: PRESENT: no acute distress, cooperative, thin Head exam: PRESENT: atraumatic, normocephalic Eye exam: PRESENT: EOMI, scleral icterus Mouth exam: PRESENT: dry mucosa Throat exam: ABSENT: post pharyngeal erythema, tonsillar erythema, tonsillar exudate Neck exam: ABSENT: JVD Respiratory exam: PRESENT: clear to auscultation damien, unlabored Cardiovascular exam: PRESENT: RRR GI/Abdominal exam: PRESENT: normal bowel sounds, soft. ABSENT: distended, guarding, Combs's sign, rebound, rigid, tenderness Extremities exam: ABSENT: pedal edema Musculoskeletal exam: PRESENT: normal inspection, tenderness - R hip and lower back Neurological exam: PRESENT: alert, awake, oriented to person, oriented to place, oriented to situation Psychiatric exam: PRESENT: anxious Skin exam: ABSENT: rash Results Laboratory Results: 08/18/20 05:54 08/20/20 06:02 08/20/20 06:02 Sodium 137.4 Potassium 3.3 L Chloride 104 Carbon Dioxide 24 Anion Gap 9 BUN 6 L Creatinine 0.43 L Est GFR ( Amer) > 60 Glucose 146 H Calcium 8.1 L Magnesium 2.1 Total Bilirubin 5.7 H AST 316 H Alkaline Phosphatase 560 H Total Protein 6.1 L Albumin 3.0 L 08/14/20 12:13 Troponin I 0.030 Impressions: Chest X-Ray 08/14/20 11:27 IMPRESSION: No evidence of acute cardiopulmonary abnormality. Abdomen/Pelvis CT 08/14/20 11:28 IMPRESSION: 1. No evidence of urolithiasis or obstructive uropathy. 2. L1 vertebral body compression deformity with retropulsed component is progressed relative to 07/12/2020 MR imaging. Abdomen MRI 08/14/20 15:36 IMPRESSION: NORMAL HEPATOBILIARY SYSTEM. NO STONES OR COMMON DUCT ABNO RMALITIES. CHRONIC AND INCIDENTAL FINDINGS INCLUDE A 3.7 CM LEFT OVARIAN CYST. GIVEN POSTMENOPAUSAL STATE, RECOMMEND FOLLOW-UP SONOGRAPHIC EVALUATION IN 12 MONTHS. Lumbar Spine MRI 08/14/20 15:36 IMPRESSION: Progression in a previously demonstrated L1 vertebral body compression deformity with increased retropulsion resulting in near complete effacement of the CSF signal at this level. This also effects significant neural foraminal stenosis at the T12/L1 and L1/2 levels as detailed above. Abdomen Ultrasound 08/17/20 00:00 IMPRESSION: NORMAL RIGHT UPPER QUADRANT ULTRASOUND. Head CT 08/17/20 00:00 IMPRESSION: No acute intracranial abnormality. Hepatobiliary Scan Nuclear Medicine 08/19/20 00:00 IMPRESSION: Limited examination. No evidence of biliary obstruction. Lower Extremity CT 08/20/20 00:00 IMPRESSION: Osteopenia. No evidence of acute osseous injury. Assessment and Plan - Diagnosis (1) Direct hyperbilirubinemia Is this a current diagnosis for this admission?: Yes (2) Nausea and vomiting in adult Is this a current diagnosis for this admission?: Yes (3) Diarrhea Qualifiers: Diarrhea type: unspecified type Qualified Code(s): R19.7 - Diarrhea, unspecified Is this a current diagnosis for this admission?: Yes (4) Compression fracture of L1 lumbar vertebra Qualifiers: Encounter type: subsequent encounter Fracture healing: with nonunion Qualified Code(s): S32.010K - Wedge compression fracture of first lumbar vertebra, subsequent encounter for fracture with nonunion Is this a current diagnosis for this admission?: Yes (5) Anxiety Is this a current diagnosis for this admission?: Yes (6) Intractable low back pain Is this a current diagnosis for this admission?: Yes - Plan Summary Summary: Acute metabolic encephalopathy: The exact etiology is unclear. Concern for hepatobiliary obstruction given direct hyperbilirubinemia, potentially making in-hospital delirium worse. She is unable to eat or drink due to N/V and is becoming dehydrated, which is also contributing. May be due to uncontrolled pain/anxiety. She has no history of alcohol or BZD usage at home to indicate withdrawal. - delirium precautions - fall precautions direct hyperbilirubinemia with elevated alk phos and LFTs: trending up x7 days now without clear cause. She is now developing N/V and is unable to tolerate oral intake. - surgery consulted - GI, Dr. Qureshi, consulted - MRCP, RUQ US with doppler and HIDA scan have all been negative - Tylenol level <10 - Hepatitis panel negative - Ammonia normal - holding home statin/lovaza (hepatotoxic), although unlikely to be the cause - Zofran PRN N/V low back pain due to compression fracture of first lumbar vertebra: MRI Lumbar spine shows L1 vertebral body compression deformity w/ increased retropulsion resulting near complete effacement of CSF signal. T12/L1 and L1/2 neural foraminal stenosis. - pain control with gabapentin, Toradol, lidoderm patches - avoid opioids and BZD given delirium/advanced age - Orthopedic surgery and IR consulted but she is not a candidate for surgical or IR intervention at this time essential hypertension - elevated in the setting of pain, anxiety and inability to take oral medications Right Hip Pain: likely due to OA, CT showed no evidence of fracture - lidocaine patch DVT ppx: heparin - Time Time Spent with patient: 35 or more minutes Anticipated Discharge Disposition: Assisted Living with Home Health Services Anticipated Discharge Timeframe: within 72 hours
[2020-08-20] MEDS: PHARMACY COMMUNICATION ORDER MC SCH (23:01)
[2020-08-21] MEDS: GABAPENTIN 100 MG CAPSULE PO SCH ×3 (01:33→20:43)
[2020-08-21] MEDS: ONDANSETRON HCL INJ/PF 4 MG/2 ML SDV IV PRN ×2 (02:48→18:08)
[2020-08-21] MEDS: POTASSI CL 40 MEQ/NS 1L 1,000 ML IV PRN ×2 (02:57→08:29)
[2020-08-21] MEDS: HEPARIN SOD (PORCINE) 5,000 UNIT/ML 1 ML VIAL SUBCUT SCH ×3 (05:21→22:32)
[2020-08-21 08:36] LABS: INTERNATIONAL RATION (INR) 1.62; PROTHROMBIN TIME 19.3 SEC (11.4-15.4)
[2020-08-21 08:37] LABS: PARTIAL THROMBOPLASTIN TIME 30.6 SEC (23.5-35.8)
[2020-08-21 08:38] LABS: ABSOLUTE LYMPHOCYTES (AUTO) 0.8 10^3/uL (0.5-4.7); ABSOLUTE MONOCYTES (AUTO) 0.7 10^3/uL (0.1-1.4); ABSOLUTE NEUT (AUTO) 7.1 10^3/uL (1.7-8.2); BASOPHILS % (AUTO) 0.2 % (0-2); EOSINOPHILS % (AUTO) 0.2 % (0-6); HEMATOCRIT 34.2 % (36.0-47.0); HEMOGLOBIN 11.6 g/dL (12.0-15.5); LYMPHOCYTES % (AUTO) 8.8 % (13-45); MEAN CORPUSCULAR HEMOGLOBIN 29.8 pg (27.0-33.4); MEAN CORPUSCULAR HGB CONC 33.9 g/dL (32.0-36.0); MEAN CORPUSCULAR VOLUME 88 fl (80-97); MONOCYTES % (AUTO) 8.6 % (3-13); PLATELET COUNT 207 10^3/uL (150-450); RED BLOOD COUNT 3.89 10^6/uL (3.72-5.28); RED CELL DISTRIBUTION WIDTH 15.6 % (11.5-14.0); SEGMENTED NEUTROPHILS % (AUTO) 82.2 % (42-78); TOTAL CELLS COUNTED % (AUTO) 100 %; WHITE BLOOD COUNT 8.6 10^3/uL (4.0-10.5)
[2020-08-21 09:15] LABS: ERYTHROCYTE SEDIMENTATION RATE 25 mm/hr (0-30)
[2020-08-21] MEDS ORDERED: POTASSI CL 40 MEQ/NS 1L 1,000 ML IV PRN (09:21)
[2020-08-21] MEDS ORDERED: NORMAL SALINE 1000 ML 1,000 ML IV ONE (09:21)
[2020-08-21 09:57] LABS: ALBUMIN 2.7 g/dL (3.5-5.0); ALKALINE PHOSPHATASE 601 U/L (38-126); ANION GAP 12 (5-19); ASPARTATE AMINO TRANSFERASE 303 U/L (14-36); BILIRUBIN,DIRECT 4.2 mg/dL (0.0-0.4); BILIRUBIN,TOTAL 5.1 mg/dL (0.2-1.3); BLOOD UREA NITROGEN 8 mg/dL (7-20); C-REACTIVE PROTEIN 49.9 mg/L (<10.0); CALCIUM 7.8 mg/dL (8.4-10.2); CARBON DIOXIDE 18 mmol/L (22-30); CHLORIDE 107 mmol/L (98-107); GLUCOSE 180 mg/dL (75-110); POTASSIUM 4.4 mmol/L (3.6-5.0); TOTAL PROTEIN 5.5 g/dL (6.3-8.2)
[2020-08-21] MEDS: BACLOFEN 10 MG TABLET PO SCH ×2 (10:00→22:31)
[2020-08-21] MEDS: ASPIRIN 81 MG TABLET, ENT COATED PO SCH (10:00)
[2020-08-21] MEDS: CHOLECALCIFEROL (D3) 1,000 UNIT (25 MCG) TABLET PO SCH (10:00)
[2020-08-21] MEDS: FAMOTIDINE 20 MG TABLET PO SCH ×2 (10:00→22:33)
[2020-08-21] MEDS: LIDOCAINE 5% (700 MG) TRANSDERMAL ADH..PATCH TP SCH ×2 (10:00)
[2020-08-21] MEDS: FLUTICASONE NASAL SPRAY 50 MCG/SPRY 120 SPRAY/16 GM NASL SCH (10:00)
[2020-08-21] MEDS: LISINOPRIL 10 MG TABLET PO SCH (10:00)
[2020-08-21] MEDS: METOPROLOL TARTRATE 50 MG TABLET PO SCH ×2 (10:41→18:12)
--- NOTE | 2020-08-21 13:16 | PDOC TRANSFER SUMMARY ---
General Admission Date/PCP: 08/14/20 20:15 SLOANE CERDA MD Resuscitation Status: Full Code - Transfer Diagnosis (1) Direct hyperbilirubinemia Is this a current diagnosis for this admission?: Yes (2) Nausea and vomiting in adult Is this a current diagnosis for this admission?: Yes (3) Diarrhea Is this a current diagnosis for this admission?: Yes (4) Compression fracture of L1 lumbar vertebra Is this a current diagnosis for this admission?: Yes (5) Anxiety Is this a current diagnosis for this admission?: Yes (6) Intractable low back pain Is this a current diagnosis for this admission?: Yes - Transfer Medications Home Medications: Atorvastatin Calcium [Lipitor 40 mg Tablet] 40 mg PO QHS 08/14/20 Hydromorphone HCl [Dilaudid 2 mg Tablet] 0.5 mg PO Q8HP PRN 08/14/20 Lidocaine [Lidoderm 5% (700 mg) Transdermal Patch] 1 patch TP DAILY 08/14/20 Metoprolol Tartrate [Lopressor] 50 mg PO BID 08/14/20 Aspirin [Ecotrin 81 mg EC Tablet] 81 mg PO DAILY 08/15/20 Baclofen [Baclofen 10 mg Tablet] 10 mg PO BID 08/15/20 Cholecalciferol (Vitamin D3) [Vitamin D3] 1,000 unit PO DAILY 08/15/20 Duloxetine HCl 20 mg PO DAILY 08/15/20 Fluticasone Propionate [Flonase Nasal [place] 50 Mcg/[place] 16 gm] 1 spray NASL DAILY 08/15/20 Naproxen 375 mg PO BIDBS 08/15/20 [place]-3/Dha/Epa/Fish Oil [Fish Oil 1,000 mg Softgel] 1 each PO DAILY 08/15/20 Sitagliptin Phos/Metformin HCl [Janumet Xr 50-1,000 mg Tablet] 1 each PO DAILY 08/15/20 Transfer Medications: Current Medications Acetaminophen (Tylenol 325 Mg Tablet) 650 mg PO Q4HP PRN PRN Reason: For headache, pain or fever Stop: 09/13/20 22:04 Last Admin: 08/18/20 22:27 Dose: 650 mg Documented by: Al Hydrox/Mg Hydrox/Simethicone (Maalox Plus Susp 30 Udcup) 30 ml PO Q6HP PRN PRN Reason: HEARTBURN Stop: 09/13/20 21:57 Aspirin (Ecotrin 81 Mg Ec Tablet) 81 mg PO DAILY [facility] Stop: 09/17/20 09:59 Last Admin: 08/20/20 10:00 Dose: Not Given Documented by: Baclofen (Baclofen 10 Mg Tablet) 10 mg PO Q12 SONIA Stop: 09/14/20 21:59 Last Admin: 08/20/20 22:58 Dose: Not Given Documented by: Cholecalciferol (Vitamin D3 1000 Unit Tablet) 1,000 unit PO DAILY SONIA Stop: 09/15/20 09:59 Last Admin: 08/20/20 10:00 Dose: Not Given Documented by: Famotidine (Pepcid 20 Mg Tablet) 20 mg PO Q12 SONIA Stop: 09/13/20 21:59 Last Admin: 08/20/20 22:01 Dose: Not Given Documented by: Fluticasone Propionate (Flonase Nasal [place] 50 Mcg/[place] 16 Gm) 1 spray NASL DAILY SONIA Stop: 09/15/20 09:59 Last Admin: 08/20/20 13:52 Dose: 1 spr Documented by: Gabapentin (Neurontin 100 Mg Capsule) 100 mg PO Q8H [facility] Stop: 09/14/20 08:59 Last Admin: 08/21/20 01:33 Dose: Not Given Documented by: Guaifenesin (Robitussin Syrup 200 Mg/10 Ml Ud Cup) 200 mg PO Q4HP PRN PRN Reason: COUGH Stop: 09/13/20 22:04 Heparin Sodium (Porcine) (Heparin Inj 5,000 Units/Ml 1 Ml Vial) 5,000 unit SUBCUT Q8 SONIA Stop: 09/13/20 21:59 Last Admin: 08/21/20 05:21 Dose: Not Given Documented by: Potassium Chloride/Sodium Chloride (Nacl 0.9% 1000 Ml/Kcl 40 Meq Premix Bag) 1,000 mls @ 200 mls/hr IV CONTINUOUS PRN PRN Reason: THIS MED IS NOT "PRN" Stop: 09/19/20 09:08 Last Admin: 08/21/20 08:29 Dose: 200 mls/hr Documented by: Potassium Chloride/Sodium Chloride (Nacl 0.9% 1000 Ml/Kcl 40 Meq Premix Bag) 1,000 mls @ 150 mls/hr IV CONTINUOUS PRN PRN Reason: THIS MED IS NOT "PRN" Stop: 09/20/20 09:20 Ketorolac Tromethamine (Toradol Inj/Pf 30 Mg/1 Ml Sdv) 30 mg IV Q4HP PRN PRN Reason: FOR PAIN Stop: 08/24/20 13:30 Lidocaine (Lidoderm 5% (700 Mg) Transdermal Patch) 1 patch TP DAILY [facility] Stop: 09/20/20 09:59 Lidocaine (Lidoderm 5% (700 Mg) Transdermal Patch) 2 patch TP DAILY [facility] Stop: 09/20/20 09:59 Lisinopril (Prinivil 10 Mg Tablet) 10 mg PO DAILY [facility] Stop: 09/18/20 09:59 Last Admin: 08/20/20 10:00 Dose: Not Given Documented by: Magnesium Hydroxide (Milk Of Magnesia 30 Ml Udcup) 30 ml PO HSP PRN PRN Reason: FOR CONSTIPATION Stop: 09/13/20 21:57 Melatonin (Melatonin 5 Mg Tablet) 5 mg PO HSP PRN PRN Reason: SLEEP OR INSOMNIA Stop: 09/13/20 22:04 Last Admin: 08/18/20 22:29 Dose: 5 mg Documented by: Metoprolol Tartrate (Lopressor Inj/Pf 5 Mg/5 Ml Sdv) 5 mg IV Q6HP PRN PRN Reason: HR >110 Stop: 09/18/20 10:54 Last Admin: 08/19/20 12:18 Dose: 5 mg Documented by: Metoprolol Tartrate (Lopressor 50 Mg Tablet) 50 mg PO BID [facility] Stop: 09/18/20 17:59 Last Admin: 08/21/20 10:41 Dose: 50 mg Documented by: Ondansetron HCl (Zofran Inj/Pf 4 Mg/2 Ml Sdv) 4 mg IV Q6HP PRN PRN Reason: FOR NAUSEA/VOMITING Stop: 09/18/20 15:42 Last Admin: 08/21/20 02:48 Dose: 4 mg Documented by: Ondansetron HCl (Zofran Odt 4 Mg Tablet) 4 mg PO Q4HP PRN PRN Reason: FOR NAUSEA/VOMITING Stop: 09/19/20 09:39 Pharmacy Profile Note (Medication Communication Order) 1 each QHS [facility] Stop: 09/14/20 21:59 Last Admin: 08/20/20 23:01 Dose: Not Given Documented by: Phenol (Chloraseptic Sore Throat [place] 177 Ml) 2 spray PO PRN PRN PRN Reason: FOR SORE THROAT Stop: 09/19/20 09:39 Last Admin: 08/20/20 13:53 Dose: 2 spray Documented by: Sodium Chloride (Saline Flush 2.5 Ml Monoject Prefil Syrin) 2.5 ml IV Q8 SONIA Stop: 09/13/20 21:59 Last Admin: 08/21/20 05:22 Dose: Not Given Documented by: Throat Lozenges (Chloraseptic Sore Throat Lozenge) 1 each BUCCAL Q1HP PRN PRN Reason: FOR SORE THROAT Stop: 09/19/20 09:39 - Allergies Allergies/Adverse Reactions: No Known Drug Allergies Allergy (Verified 07/08/20 12:01) - Diet/Activity Discharge Diet: As Tolerated Discharge Activity: Activity As Tolerated Hospital Course Hospital Course: Ms. Kennedi Saldaña is an 85 year old woman with past medical history significant for HTN, HLD, T2DM, OA, anxiety and recent L1 compression fracture who presented to the ED on 08/14/2020 with acutely altered mental status. On admission, she was found to be delirious and dehydrated. She had apparently not been able to tolerate oral intake at home. Of note, the patient struggles with uncontrolled back pain due to a L1 compression fracture that she suffered in 06/2020. She has had frequent ED visits due to back pain since 06/2020. She has previously been told that she is not a c andidate for vertebroplasty or kyphoplasty, and has received conservative treatment with oral pain medications. In late 06/2020, she was admitted at [facility] for inability to ambulate due to uncontrolled back pain and was discharged briefly to a SNF, with subsequent improvement in both her back pain and her mobility. Of note, she was incidentally noted to be Covid+ during her last admission in 06/2020, although she was completely asymptomatic from a respiratory standpoint; she has since tested negative for Covid. Nausea/Vomiting: She has had difficult to control nausea and vomiting during this hospitalization, and has been maintained on IVF therapy and IV medications. She is still not able to tolerate oral medications. Acute metabolic encephalopathy: The exact etiology is unclear. Concern for hepatobiliary obstruction given direct hyperbilirubinemia, potentially making in-hospital delirium worse. She has no history of alcohol or BZD usage at home to indicate withdrawal. Delirium has improved somewhat throughout the hospital stay, but she is at time still very forgetful. Prior to this hospitalization, she was independent and living alone. Direct hyperbilirubinemia: trending up for over 7 days now without a clear etiology. Associated with nausea and vomiting. She has had unremarkable MRCP, RUQ US with doppler and HIDA scan this admission. She has been afebrile, hemodynamically stable and with multiple negative blood cultures. Tylenol level <10 on admission. Acute hepatitis panel negative. Ammonia normal. INR has been slowly trending up from 0.99 on admission to 1.6 on the day of discharge. AST/ALT have been in the 300s. Alk phos is in the 600s. Total bilirubin 5.7 and direct is 4.7. Lipase minimally elevated to 300s. Her home statin/lovaza have both been held throughout admission. Unfortunately, we do not have gastroenterology available at [facility], and she would benefit from GI consultation and possible EUS vs ERCP for further work up. Low back pain due to compression fracture of first lumbar vertebra: MRI L-spine shows L1 vertebral body compression deformity with increased retropulsion resulting near complete effacement of CSF signal and T12/L1 and L1/2 neural fo raminal stenosis. Orthopedic surgery and IR consulted but she is not a candidate for surgical or IR intervention. Pain is currently well controlled with Toradol and lidoderm patches. We have been avoiding opioids and BZD given delirium/advanced age. She has been ambulating with PT and a walker. FULL CODE Physical Exam Vital Signs: Temp Pulse Resp BP Pulse Ox 97.9 F 101 H 17 149/78 H 94 08/21/20 11:29 08/21/20 11:29 08/21/20 11:29 08/21/20 11:29 08/21/20 11:29 Intake & Output 08/20/20 08/21/20 08/22/20 06:59 06:59 06:59 Intake Total 2117 50 1000 Balance 211 50 1000 Weight 53 kg 54.3 kg General appearance: PRESENT: no acute distress Eye exam: PRESENT: scleral icterus Mouth exam: PRESENT: dry mucosa Neck exam: ABSENT: JVD Respiratory exam: PRESENT: clear to auscultation damien, unlabored. ABSENT: accessory muscle use, crackles, tachypnea Cardiovascular exam: PRESENT: RRR GI/Abdominal exam: PRESENT: normal bowel sounds, soft, tenderness - throughout, to deep palpation. ABSENT: ascites, distended, firm, guarding, Combs's sign, rebound, rigid Rectal exam: PRESENT: deferred Extremities exam: ABSENT: pedal edema Musculoskeletal exam: PRESENT: ambulatory, tenderness - R hip Neurological exam: PRESENT: alert, awake, oriented to person, oriented to place, oriented to situation. ABSENT: oriented to time Psychiatric exam: PRESENT: anxious Skin exam: PRESENT: jaundice Results Laboratory Results: 08/21/20 08:19 08/21/20 09:15 08/21/20 08/21/20 08/21/20 08:19 08:19 09:15 WBC 8.6 RBC 3.89 Hgb 11.6 L Hct 34.2 L MCV 88 MCH 29.8 MCHC 33.9 RDW 15.6 H Plt Count 207 Seg Neutrophils % 82.2 H Sodium 136.5 L Potassium 4.4 Chloride 107 Carbon Dioxide 18 L Anion Gap 12 BUN 8 Creatinine 0.37 L Est GFR ( Amer) > 60 Glucose 180 H Lactic Acid 0.8 Calcium 7.8 L Magnesium 1.7 Total Bilirubin 5.1 H AST 303 H Alkaline Phosphatase 601 H C-Reactive Protein 49.9 H Total Protein 5.5 L Albumin 2.7 L 08/14/20 12:13 Troponin I 0.030 Impressions: Chest X-Ray 08/14/20 11:27 IMPRESSION: No evidence of acute cardiopulmonary abnormality. Abdomen/Pelvis CT 08/14/20 11:28 IMPRESSION: 1. No evidence of urolithiasis or obstructive uropathy. 2. L1 vertebral body compression deformity with retropulsed component is progressed relative to 07/12/2020 MR imaging. Abdomen MRI 08/14/20 15:36 IMPRESSION: NORMAL HEPATOBILIARY SYSTEM. NO STONES OR COMMON DUCT A BNORMALITIES. CHRONIC AND INCIDENTAL FINDINGS INCLUDE A 3.7 CM LEFT OVARIAN CYST. GIVEN POSTMENOPAUSAL STATE, RECOMMEND FOLLOW-UP SONOGRAPHIC EVALUATION IN 12 MONTHS. Lumbar Spine MRI 08/14/20 15:36 IMPRESSION: Progression in a previously demonstrated L1 vertebral body compression deformity with increased retropulsion resulting in near complete effacement of the CSF signal at this level. This also effects significant neural foraminal stenosis at the T12/L1 and L1/2 levels as detailed above. Abdomen Ultrasound 08/17/20 00:00 IMPRESSION: NORMAL RIGHT UPPER QUADRANT ULTRASOUND. Head CT 08/17/20 00:00 IMPRESSION: No acute intracranial abnormality. Hepatobiliary Scan Nuclear Medicine 08/19/20 00:00 IMPRESSION: Limited examination. No evidence of biliary obstruction. Lower Extremity CT 08/20/20 00:00 IMPRESSION: Osteopenia. No evidence of acute osseous injury. Plan Discharge Plan: Transfer to [facility] for GI consultation and further work up. Time Spent: Greater than 30 Minutes
--- NOTE | 2020-08-21 16:48 | PDOC PROGRESS REPORT ---
Subjective Progress Note for:: 08/21/20 Subjective:: She is feeling poorly. Continues to have N/V. Reason For Visit: INTRACTABLE BACK PAIN, L1 COMPRESSION FRACTURE Physical Exam Vital Signs: Temp Pulse Resp BP Pulse Ox 97.9 F 101 H 17 149/78 H 94 08/21/20 11:29 08/21/20 11:29 08/21/20 11:29 08/21/20 11:29 08/21/20 11:29 Intake & Output 08/20/20 08/21/20 08/22/20 06:59 06:59 06:59 Intake Total 2118 50 1000 Balance 2118 50 1000 Weight 53 kg 54.3 kg Results Laboratory Results: 08/21/20 08:19 08/21/20 09:15 08/21/20 08/21/20 08/21/20 08:19 08:19 09:15 WBC 8.6 RBC 3.89 Hgb 11.6 L Hct 34.2 L MCV 88 MCH 29.8 MCHC 33.9 RDW 15.6 H Plt Count 207 Seg Neutrophils % 82.2 H Sodium 136.5 L Potassium 4.4 Chloride 107 Carbon Dioxide 18 L Anion Gap 12 BUN 8 Creatinine 0.37 L Est GFR ( Amer) > 60 Glucose 180 H Lactic Acid 0.8 Calcium 7.8 L Magnesium 1.7 Total Bilirubin 5.1 H AST 303 H Alkaline Phosphatase 601 H C-Reactive Protein 49.9 H Total Protein 5.5 L Albumin 2.7 L 08/14/20 12:13 Troponin I 0.030 Impressions: Chest X-Ray 08/14/20 11:27 IMPRESSION: No evidence of acute cardiopulmonary abnormality. Abdomen/Pelvis CT 08/14/20 11:28 IMPRESSION: 1. No evidence of urolithiasis or obstructive uropathy. 2. L1 vertebral body compression deformity with retropulsed component is progressed relative to 07/12/2020 MR imaging. Abdomen MRI 08/14/20 15:36 IMPRESSION: NORMAL HEPATOBILIARY SYSTEM. NO STONES OR COMMON DUCT ABNORMALITIES. CHRONIC AND INCIDENTAL FINDINGS INCLUDE A 3.7 CM LEFT OVARIAN CYST. GIVEN POSTMENOPAUSAL STATE, RECOMMEND FOLLOW-UP SONOGRAPHIC EVALUATION IN 12 MONTHS. Lumbar Spine MRI 08/14/20 15:36 IMPRESSION: Progression in a previously demonstrated L1 vertebral body compression deformity with increased retropulsion resulting in near complete effacement of the CSF signal at this level. This also effects significant neural foraminal stenosis at the T12/L1 and L1/2 levels as detailed above. Abdomen Ultrasound 08/17/20 00:00 IMPRESSION: NORMAL RIGHT UPPER QUADRANT ULTRASOUND. Head CT 08/17/20 00:00 IMPRESSION: No acute intracranial abnormality. Hepatobiliary Scan Nuclear Medicine 08/19/20 00:00 IMPRESSION: Limited examination. No evidence of biliary obstruction. Lower Extremity CT 08/20/20 00:00 IMPRESSION: Osteopenia. No evidence of acute osseous injury. Assessment and Plan - Diagnosis (1) Direct hyperbilirubinemia Is this a current diagnosis for this admission?: Yes (2) Nausea and vomiting in adult Is this a current diagnosis for this admission?: Yes (3) Diarrhea Qualifiers: Diarrhea type: unspecified type Qualified Code(s): R19.7 - Diarrhea, unspecified Is this a current diagnosis for this admission?: Yes (4) Compression fracture of L1 lumbar vertebra Qualifiers: Encounter type: subsequent encounter Fracture healing: with nonunion Qualified Code(s): S32.010K - Wedge compression fracture of first lumbar vertebra, subsequent encounter for fracture with nonunion Is this a current diagnosis for this admission?: Yes (5) Anxiety Is this a current diagnosis for this admission?: Yes (6) Intractable low back pain Is this a current diagnosis for this admission?: Yes - Plan Summary Summary: Ms. Kennedi Saldaña is an 85 year old woman with past medical history significant for HTN, HLD, T2DM, OA, anxiety and recent L1 compression fracture who presented to the ED on 08/14/2020 with acutely altered mental status. On admission, she was found to be delirious and dehydrated. She had apparently not been able to tolerate oral intake at home. Of note, the patient struggles with uncontrolled back pain due to a L1 compression fracture that she suffered in 06/2020. She has had frequent ED visits due to back pain since 06/2020. She has previously been told that she is not a candidate for vertebroplasty or kyphoplasty, and has received conservative treatment with oral pain medications. In late 06/2020, she was admitted at [facility] for inability to ambulate due to uncontrolled back pain and was discharged briefly to a SNF, with subsequent improvement in both her back pain and her mobility. Of note, she was incidentally noted to be Covid+ during her last admission in 06/2020, although she was completely asymptomatic from a respiratory standpoint; she has since tested negative for Covid. Nausea/Vomiting: She has had difficult to control nausea and vomiting during this hospitalization, and has been maintained on IVF therapy and IV medications. She is still not able to tolerate oral medications. Acute metabolic encephalopathy: The exact etiology is unclear. Concern for hepatobiliary obstruction given direct hyperbilirubinemia, potentially making in-hospital delirium worse. She has no history of alcohol or BZD usage at home to indicate withdrawal. Delirium has improved somewhat throughout the hospital stay, but she is at time still very forgetful. Prior to this hospitalization, she was independent and living alone. Direct hyperbilirubinemia: trending up for over 7 days now without a clear etiology. Associated with nausea and vomiting. She has had unremarkable MRCP, RUQ US with doppler and HIDA scan this admission. She has been afebrile, hemodynamically stable and with multiple negative blood cultures. Tylenol level <10 on admission. Acute hepatitis panel negative. Ammonia normal. INR has been s lowly trending up from 0.99 on admission to 1.6 on the day of discharge. AST/ALT have been in the 300s. Alk phos is in the 600s. Total bilirubin 5.7 and direct is 4.7. Lipase minimally elevated to 300s. Her home statin/lovaza have both been held throughout admission. Unfortunately, we do not have gastroenterology available at [facility], and she would benefit from GI consultation and possible EUS vs ERCP for further work up. Low back pain due to compression fracture of first lumbar vertebra: MRI L-spine shows L1 vertebral body compression deformity with increased retropulsion resulting near complete effacement of CSF signal and T12/L1 and L1/2 neural foraminal stenosis. Orthopedic surgery and IR consulted but she is not a candidate for surgical or IR intervention. Pain is currently well controlled with Toradol and lidoderm patches. We have been avoiding opioids and BZD given delirium/advanced age. She has been ambulating with PT and a walker. Right Hip Pain: no evidence of fracture on CT R extremity. Pain control with Toradol and lidocaine patch. Dispo: transfer to [facility] (accepted 08/21) - Time Time Spent with patient: 35 or more minutes Anticipated Discharge Disposition: Tertiary Anticipated Discharge Timeframe: within 24 hours
[2020-08-21] MEDS: PHARMACY COMMUNICATION ORDER MC SCH (22:32)
[2020-08-22] MEDS: METOPROLOL TARTRATE PF/INJ 5 MG/5 ML SDV IV PRN (00:50)
[2020-08-22] MEDS: MELATONIN 5 MG TABLET PO PRN (00:57)
[2020-08-22] MEDS: GABAPENTIN 100 MG CAPSULE PO SCH ×3 (01:00→17:25)
[2020-08-22] MEDS: HEPARIN SOD (PORCINE) 5,000 UNIT/ML 1 ML VIAL SUBCUT SCH (05:18)
[2020-08-22 07:19] LABS: ALBUMIN 2.6 g/dL (3.5-5.0); ALKALINE PHOSPHATASE 676 U/L (38-126); ANION GAP 12 (5-19); ASPARTATE AMINO TRANSFERASE 233 U/L (14-36); BILIRUBIN,DIRECT 3.4 mg/dL (0.0-0.4); BILIRUBIN,TOTAL 4.1 mg/dL (0.2-1.3); BLOOD UREA NITROGEN 8 mg/dL (7-20); CALCIUM 8.5 mg/dL (8.4-10.2); CARBON DIOXIDE 15 mmol/L (22-30); CHLORIDE 112 mmol/L (98-107); GLUCOSE 184 mg/dL (75-110); POTASSIUM 4.6 mmol/L (3.6-5.0); TOTAL PROTEIN 5.3 g/dL (6.3-8.2)
[2020-08-22] MEDS ORDERED: HYDRALAZINE HCL INJ/PF 20 MG/1 ML SDV IV PRN (07:40)
[2020-08-22] MEDS ORDERED: DEXTROSE 5%-WATER 1000 ML 1,000 ML with SODIUM BICARBONATE 100 MEQ IV PRN ×2 (09:00)
[2020-08-22] MEDS: PANTOPRAZOLE SODIUM 40 MG VIAL IV SCH ×2 (09:03→21:33)
[2020-08-22] MEDS: ENOXAPARIN SODIUM INJ 30 MG/0.3 ML DISP.SYRIN SUBCUT SCH (09:04)
[2020-08-22] MEDS: METOPROLOL TARTRATE 50 MG TABLET PO SCH ×2 (09:07→17:25)
[2020-08-22] MEDS: ASPIRIN 81 MG TABLET, ENT COATED PO SCH (09:07)
[2020-08-22] MEDS: BACLOFEN 10 MG TABLET PO SCH ×2 (09:12→21:33)
[2020-08-22] MEDS: FLUTICASONE NASAL SPRAY 50 MCG/SPRY 120 SPRAY/16 GM NASL SCH (09:17)
--- NOTE | 2020-08-22 10:53 | PDOC CONSULTATION ---
Consultation-Blank Consultation: Psychiatric Consultation: DOS: 08.19.2020 Time: 1800 Met with Patient at request of her provider. Patient was observed to be laying in bed, very restless, rolling back and forth, lifting the covers of her bed and off her body. Upon entering her room, I introduced myself and she appropriately acknowledged my presence. A discussion was initiated regarding her reason for admission which she was able to accurately (per records) recite, in an organized, rational, and linear fashion. She discussed her back fracture with subsequent back pain and how she remained significantly uncomfortable which was causing her to be restless in her bed. I asked if she would like her sheets straightened out and her covered with the sheets and upon acknowledgement and doing such, she became less restless and slightly more comfortable, though still in obvious discomfort. Patient relayed her social, psychiatric, and medical history which was congruent with records reviewed in the chart, though her recall of her age was inaccurate by 10 years, stating she was about to turn "89." All other mental status questions were answered correctly. She reported she was ighly confused the day prior and unsure as to the reason, and was able to recall what she thought was going on the day prior [place] She reported she felt much better today and not confused just in pain. She maintained a good sense of humor, often making jokes that were appropriate to conversational topics, and her affect and mood was appropriate to her humor. She denied experiencing any auditory or visual hallucinations today and she did not appear to be responding to internal stimuli during the evaluation. Eye contact was well maintained, thought processes linear, and conversational speech within normal limits for rate, tone, and prosody. Attention and concentration was within normal limits while insight, judgment, and impulse control was age appropriate. At this time, it is unclear the cause of her psychosis on the previous day. It is possible she experienced a period of temporary delirium secondary to pain medication, high levels of pain, medication interactions, etc. At time of evaluation, her mentation was clear save for her knowing her age. She appropriately engaged in the evaluation and was pleasant, though appeared to continue in pain. She denied suicidal/homicidal ideation, intent or plan. She reported strengths of coping as her spirituality and family, as one of her sons currently lives with her. Impression/Plan: Patient is clear from acute psychiatric services. She reported experiencing "confusion" the previous day but not knowing the cause. She indicated feeling better at time of evaluation and was able to appropriately engage and her mentation was clear save for knowing her age. At this time, there is no psychiatric recommendation for medications or otherwise. Attending physician was notified of the completion of the evaluation and recommendation and disposition. Please don't hesitate to contact behavioral health at [phone] for further consultation should it be needed.
[2020-08-22] MEDS: ONDANSETRON HCL INJ/PF 4 MG/2 ML SDV IV PRN (11:44)
[2020-08-22] MEDS: KETOROLAC TROMETHAMINE INJ/PF 30 MG/1 ML SDV IV PRN ×2 (12:12→17:25)
[2020-08-22] MEDS: LIDOCAINE 5% (700 MG) TRANSDERMAL ADH..PATCH TP SCH ×2 (14:30→14:31)
[2020-08-22] MEDS ORDERED: LORAZEPAM INJ 2 MG/1 ML VIAL IM ONE (18:31)
[2020-08-22] MEDS ORDERED: LORAZEPAM INJ 2 MG/1 ML VIAL IV ONE (18:32)
[2020-08-22] MEDS: KETOROLAC TROMETHAMINE INJ/PF 30 MG/1 ML SDV IV SCH (18:36)
--- NOTE | 2020-08-22 18:38 | PDOC PROGRESS REPORT ---
Subjective Progress Note for:: 08/22/20 Subjective:: She is doing better today. She was able to tolerate drinking water and eating broth for lunch. CC of R Hip pain. Reason For Visit: INTRACTABLE BACK PAIN, L1 COMPRESSION FRACTURE Physical Exam Vital Signs: Temp Pulse Resp BP Pulse Ox 98.3 F 105 H 20 139/68 H 91 L 08/22/20 15:23 08/22/20 15:23 08/22/20 15:23 08/22/20 15:23 08/22/20 15:23 Intake & Output 08/21/20 08/22/20 08/23/20 06:59 06:59 06:59 Intake Total 50 1999 224 Balance 50 1999 224 Weight 54.3 kg 53.4 kg General appearance: PRESENT: no acute distress, cooperative Eye exam: PRESENT: scleral icterus Mouth exam: PRESENT: dry mucosa Throat exam: ABSENT: post pharyngeal erythema, tonsillar exudate Neck exam: ABSENT: JVD Respiratory exam: PRESENT: crackles - at bases, tachypnea. ABSENT: accessory muscle use, rales, rhonchi, wheezes Cardiovascular exam: PRESENT: tachycardia. ABSENT: gallop GI/Abdominal exam: PRESENT: normal bowel sounds, soft. ABSENT: distended, gua rding, rebound, tenderness Extremities exam: ABSENT: calf tenderness, pedal edema Musculoskeletal exam: PRESENT: ambulatory Neurological exam: PRESENT: alert, awake, oriented to person, oriented to place, oriented to situation Psychiatric exam: PRESENT: anxious Skin exam: PRESENT: jaundice Results Laboratory Results: 08/21/20 08:19 08/22/20 06:07 08/22/20 06:07 Sodium 139.4 Potassium 4.6 Chloride 112 H Carbon Dioxide 15 L Anion Gap 12 BUN 8 Creatinine 0.44 L Est GFR ( Amer) > 60 Glucose 184 H Calcium 8.5 Magnesium 1.7 Total Bilirubin 4.1 H AST 233 H Alkaline Phosphatase 676 H Total Protein 5.3 L Albumin 2.6 L 08/14/20 12:13 Troponin I 0.030 Impressions: Chest X-Ray 08/14/20 11:27 IMPRESSION: No evidence of acute cardiopulmonary abnormality. Abdomen/Pelvis CT 08/14/20 11:28 IMPRESSION: 1. No evidence of urolithiasis or obstructive uropathy. 2. L1 vertebral body compression deformity with retropulsed component is progressed relative to 07/12/2020 MR imaging. Abdomen MRI 08/14/20 15:36 IMPRESSION: NORMAL HEPATOBILIARY SYSTEM. NO STONES OR COMMON DUCT ABNORMALITIES. CHRONIC AND INCIDENTAL FINDINGS INCLUDE A 3.7 CM LEFT OVARIAN CYST. GIVEN POSTMENOPAUSAL STATE, RECOMMEND FOLLOW-UP SONOGRAPHIC EVALUATION IN 12 MONTHS. Lumbar Spine MRI 08/14/20 15:36 IMPRESSION: Progression in a previously demonstrated L1 vertebral body compression deformity with increased retropulsion resulting in near complete effacement of the CSF signal at this level. This also effects significant neural foraminal stenosis at the T12/L1 and L1/2 levels as detailed above. Abdomen Ultrasound 08/17/20 00:00 IMPRESSION: NORMAL RIGHT UPPER QUADRANT ULTRASOUND. Head CT 08/17/20 00:00 IMPRESSION: No acute intracranial abnormality. Hepatobiliary Scan Nuclear Medicine 08/19/20 00:00 IMPRESSION: Limited examination. No evidence of biliary obstruction. Lower Extremity CT 08/20/20 00:00 IMPRESSION: Osteopenia. No evidence of acute osseous injury. Assessment and Plan - Diagnosis (1) Direct hyperbilirubinemia Is this a current diagnosis for this admission?: Yes (2) Nausea and vomiting in adult Is this a current diagnosis for this admission?: Yes (3) Diarrhea Qualifiers: Diarrhea type: unspecified type Qualified Code(s): R19.7 - Diarrhea, unspecified Is this a current diagnosis for this admission?: Yes (4) Compression fracture of L1 lumbar vertebra Qualifiers: Encounter type: subsequent encounter Fracture healing: with nonunion Qualified Code(s): S32.010K - Wedge compression fracture of first lumbar vertebra, subsequent encounter for fracture with nonunion Is this a current diagnosis for this admission?: Yes (5) Anxiety Is this a current diagnosis for this admission?: Yes (6) Intractable low back pain Is this a current diagnosis for this admission?: Yes - Plan Summary Summary: Ms. Kennedi Saldaña is an 85 year old woman with past medical history significant for HTN, HLD, T2DM, OA, anxiety and recent L1 compression fracture who presented to the ED on 08/14/2020 with acutely altered mental status. On admission, she was found to be delirious and dehydrated. She had apparently not been able to tolerate oral intake at home. Of note, the patient struggles with uncontrolled back pain due to a L1 compre ssion fracture that she suffered in 06/2020. She has had frequent ED visits due to back pain since 06/2020. She has previously been told that she is not a candidate for vertebroplasty or kyphoplasty, and has received conservative treatment with oral pain medications. In late 06/2020, she was admitted at [facility] for inability to ambulate due to uncontrolled back pain and was discharged briefly to a SNF, with subsequent improvement in both her back pain and her mobility. Of note, she was incidentally noted to be Covid+ during her last admission in 06/2020, although she was completely asymptomatic from a respiratory standpoint; she has since tested negative for Covid. Nausea/Vomiting: She has had difficult to control nausea and vomiting during this hospitalization, and has been maintained on IVF therapy and IV medications. She is still not able to reliably tolerate oral medications. Acute metabolic encephalopathy: The exact etiology is unclear. Concern for hepatobiliary obstruction given direct hyperbilirubinemia, potentially making in-hospital delirium worse. She has no history of alcohol or BZD usage at home to indicate withdrawal. Delirium has improved somewhat throughout the hospital stay, but she is at time still very forgetful. Prior to this hospitalization, she was independent and living alone. Direct hyperbilirubinemia: trending up for over 7 days now without a clear etiology. Associated with nausea and vomiting. She has had unremarkable MRCP, RUQ US with doppler and HIDA scan this admission. She has been afebrile, hemodynamically stable and with multiple negative blood cultures. Tylenol level <10 on admission. Acute hepatitis panel negative. Ammonia normal. INR has been slowly trending up from 0.99 on admission to 1.6. AST/ALT have been in the 300s. Alk phos is in the 600s. Total bilirubin 5.7 and direct is 4.7. Lipase minimally elevated to 300s. Her home statin/lovaza have both been held throughout admission. Unfortunately, we do not have gastroenterology available at [facility], and she would benefit from GI consultation and possible EUS vs ERCP for further work up. Low back pain due to compression fracture of first lumbar vertebra: MRI L-spine shows L1 vertebral body compression deformity with increased retropulsion resulting near complete effacement of CSF signal and T12/L1 and L1/2 neural foraminal stenosis. Orthopedic surgery and IR consulted but she is not a candidate for surgical or IR intervention. Pain is currently well controlled with Toradol and lidoderm patches. We have been avoiding opioids and BZD given delirium/advanced age. She has been ambulating with PT and a walker. Right Hip Pain: no evidence of fracture on CT R extremity. Pain control with Toradol and lidocaine patch. Consider surgical consultation for R trochanteric bursa injection tomorrow if patient is still here. Dispo: transfer to [facility] (accepted 08/21). I spoke with [facility] twice on 08/21 and twice on 08/22. Still awaiting bed. - Time Time Spent with patient: 35 or more minutes Anticipated Discharge Disposition: Tertiary Anticipated Discharge Timeframe: within 24 hours
[2020-08-22] MEDS: PHARMACY COMMUNICATION ORDER MC SCH (21:30)
[2020-08-23] MEDS: KETOROLAC TROMETHAMINE INJ/PF 30 MG/1 ML SDV IV SCH ×4 (00:40→17:33)
[2020-08-23] MEDS: GABAPENTIN 100 MG CAPSULE PO SCH ×3 (00:42→17:33)
[2020-08-23 07:24] LABS: ALBUMIN 2.2 g/dL (3.5-5.0); ALKALINE PHOSPHATASE 566 U/L (38-126); ANION GAP 5 (5-19); ASPARTATE AMINO TRANSFERASE 147 U/L (14-36); BILIRUBIN,DIRECT 2.4 mg/dL (0.0-0.4); BILIRUBIN,TOTAL 3.1 mg/dL (0.2-1.3); BLOOD UREA NITROGEN 14 mg/dL (7-20); CALCIUM 8.5 mg/dL (8.4-10.2); CARBON DIOXIDE 20 mmol/L (22-30); CHLORIDE 111 mmol/L (98-107); GLUCOSE 136 mg/dL (75-110); POTASSIUM 4.1 mmol/L (3.6-5.0); TOTAL PROTEIN 4.8 g/dL (6.3-8.2)
[2020-08-23] MEDS: ASPIRIN 81 MG TABLET, ENT COATED PO SCH (09:06)
[2020-08-23] MEDS: BACLOFEN 10 MG TABLET PO SCH ×2 (09:06→21:31)
[2020-08-23] MEDS: ENOXAPARIN SODIUM INJ 30 MG/0.3 ML DISP.SYRIN SUBCUT SCH (09:07)
[2020-08-23] MEDS: PANTOPRAZOLE SODIUM 40 MG VIAL IV SCH ×2 (09:07→21:31)
[2020-08-23] MEDS: METOPROLOL TARTRATE 50 MG TABLET PO SCH ×2 (09:07→17:33)
[2020-08-23] MEDS: FLUTICASONE NASAL SPRAY 50 MCG/SPRY 120 SPRAY/16 GM NASL SCH (09:13)
[2020-08-23] MEDS: LIDOCAINE 5% (700 MG) TRANSDERMAL ADH..PATCH TP SCH ×2 (09:13)
[2020-08-23] MEDS ORDERED: LORAZEPAM INJ 2 MG/1 ML VIAL IV PRN (10:36)
--- NOTE | 2020-08-23 10:37 | Progress Note ---
Provider Note Provider Note: The patient is an 85 year old woman with an L1 burst fracture with greater than 50% canal compromise on MRI 08/14/2020. The patient had been admitted to [facility] 07/16/2020 for treatment of this fracture. ER notes indicate that she was complaining of back pain and pain in the right hip at this presentation. Notes also indicate that she had been sent to the ER by her orthopedist, Dr. Espino, for a kyphoplasty. She was found not to be a candidate for kyphoplasty. This is presumably because there is complete loss of the L1 vertebral body. The patient was awaiting a transfer to be evaluated by a neurosurgeon. She unfortunately tested positive for Covid-19 and this transfer was placed on hold. She was fitted for a TLSO and sent to a SNF. She has not been compliant with wearing the TLSO per report. She was admitted back to [facility] 08/14/2020 with a complaint of left flank pain. She was evaluated by Dr. Nieto on 08/15/2020 who recommended outpatient evaluation by a spine surgeon upon discharge. Review of the MRI 08/14/2020 reveals an unstable burst fracture with greater than 50% of canal compromise. Clinically the patient is demonstrating a changing pattern of neurologic compromise. Initial complaints referred to referred discomfort to the right hip. These symptoms have now changed to complaints referred to the left side. Given the severe canal compromise and changing neurologic picture, I would recommend transfer to a facility with the ability to definitively evaluate and treat spinal instability and compression. I do not feel that she is safe for discharge home until she is evaluated by a diagnostic sales specialist.
--- NOTE | 2020-08-23 12:33 | RADIOLOGY REPORT (SQ) ---
EXAM DESCRIPTION: MRI LUMBAR SPINE WITHOUT IMAGES COMPLETED DATE/TIME: 08/23/2020 12:08 pm REASON FOR STUDY: concern for cord compression at L1 fracture COMPARISON: 08/14/2020 TECHNIQUE: Sagittal and Axial imaging includes T1, T2, STIR and gradient echo sequences. Coronal T2/ HASTE imaging. LIMITATIONS: Considerable motion artifact. FINDINGS: Degree of retropulsion of the recently described L1 compression fracture is not significan tly changed. Approximately 50% canal stenosis. There is more conspicuous high T2 signal within the vertebral body compared to the recent prior. The appearance is otherwise unchanged. Cord signal is normal. IMPRESSION: Increasing edema within L1 compression fracture but no significant change in the degree of retropulsion. TECHNICAL DOCUMENTATION: JOB ID: [id number] 2010 [employer]- All Rights Reserved Reading location - IP/workstation name: [email or web address]
--- NOTE | 2020-08-23 17:49 | PDOC PROGRESS REPORT ---
Subjective Progress Note for:: 08/23/20 Subjective:: She feels quite well today. She has been getting up, walking around, eating without N/V. Denies abdominal pain. Denies back pain. Reason For Visit: INTRACTABLE BACK PAIN, L1 COMPRESSION FRACTURE Physical Exam Vital Signs: Temp Pulse Resp BP Pulse Ox 97.6 F 103 H 24 H 142/70 H 95 08/23/20 10:00 08/23/20 08:00 08/23/20 08:00 08/23/20 08:00 08/23/20 08:00 Intake & Output 08/22/20 08/23/20 08/24/20 06:59 06:59 06:59 Intake Total 1999 3759 Balance 1999 3759 Weight 53.4 kg 57.1 kg General appearance: PRESENT: no acute distress, cooperative Eye exam: PRESENT: scleral icterus Mouth exam: PRESENT: dry mucosa Teeth exam: PRESENT: poor dentation Throat exam: PRESENT: post pharyngeal erythema Neck exam: ABSENT: JVD Respiratory exam: PRESENT: clear to auscultation damien, unlabored. ABSENT: crackles, tachypnea, wheezes Cardiovascular exam: PRESENT: RRR GI/Abdominal exam: PRESENT: normal bowel sounds, soft. ABSENT: distended, firm, guarding, rebound, rigid, tenderness Extremities exam: ABSENT: pedal edema Neurological exam: PRESENT: alert, awake Psychiatric exam: PRESENT: anxious Results Laboratory Results: 08/21/20 08:19 08/23/20 05:43 08/23/20 05:43 Sodium 136.4 L Potassium 4.1 Chloride 111 H Carbon Dioxide 20 L Anion Gap 5 BUN 14 Creatinine 0.52 Est GFR ( Amer) > 60 Glucose 136 H Calcium 8.5 Total Bilirubin 3.1 H AST 147 H Alkaline Phosphatase 566 H Total Protein 4.8 L Albumin 2.2 L 08/14/20 12:13 Troponin I 0.030 Impressions: Chest X-Ray 08/14/20 11:27 IMPRESSION: No evidence of acute cardiopulmonary abnormality. Abdomen/Pelvis CT 08/14/20 11:28 IMPRESSION: 1. No evidence of urolithiasis or obstructive uropathy. 2. L1 vertebral body compression deformity with retropulsed component is progressed relative to 07/12/2020 MR imaging. Abdomen MRI 08/14/20 15:36 IMPRESSION: NORMAL HEPATOBILIARY SYSTEM. NO STONES OR COMMON DUCT ABNORMALITIES. CHRONIC AND INCIDENTAL FINDINGS INCLUDE A 3.7 CM LEFT OVARIAN CYST. GIVEN POSTMENOPAUSAL STATE, RECOMMEND FOLLOW-UP SONOGRAPHIC EVALUATION IN 12 MONTHS. Abdomen Ultrasound 08/17/20 00:00 IMPRESSION: NORMAL RIGHT UPPER QUADRANT ULTRASOUND. Head CT 08/17/20 00:00 IMPRESSION: No acute intracranial abnormality. Hepatobiliary Scan Nuclear Medicine 08/19/20 00:00 IMPRESSION: Limited examination. No evidence of biliary obstruction. Lower Extremity CT 08/20/20 00:00 IMPRESSION: Osteopenia. No evidence of acute osseous injury. Lumbar Spine MRI 08/23/20 00:00 IMPRESSION: Increasing edema within L1 compression fracture but no significant change in the degree of retropulsion. Assessment and Plan - Diagnosis (1) Direct hyperbilirubinemia Is this a current diagnosis for this admission?: Yes (2) Nausea and vomiting in adult Is this a current diagnosis for this admission?: Yes (3) Diarrhea Qualifiers: Diarrhea type: unspecified type Qualified Code(s): R19.7 - Diarrhea, unspecified Is this a current diagnosis for this admission?: Yes (4) Compression fracture of L1 lumbar vertebra Qualifiers: Encounter type: subsequent encounter Fracture healing: with nonunion Qualified Code(s): S32.010K - Wedge compression fracture of first lumbar vertebra, subsequent encounter for fracture with nonunion Is this a current diagnosis for this admission?: Yes (5) Anxiety Is this a current diagnosis for this admission?: Yes (6) Intractable low back pain Is this a current diagnosis for this admission?: Yes - Plan Summary Summary: Ms. Kennedi Saldaña is an 85 year old woman with past medical history significant for HTN, HLD, T2DM, OA, anxiety and recent L1 compression fracture who presented to the ED on 08/14/2020 with acutely altered mental status. On admission, she was found to be delirious and dehydrated. She had apparently not been able to tolerate oral intake at home. Of note, the patient struggles with uncontrolled back pain due to a L1 compression fracture that she suffered in 06/2020. She has had frequent ED visits due to back pain since 06/2020. She has previously been told that she is not a candidate for vertebroplasty or kyphoplasty, and has received conservative treatment with TLSO brace and oral pain medications, and advised to follow up as outpatient with NSG. In late 06/2020, she was admitted at [facility] for inability to ambulate due to uncontrolled back pain and was discharged briefly to a SNF, with subsequent improvement in both her back pain and her mobility. Of note, she was incidentally noted to be Covid+ during her last admission in 06/2020, although she was completely asymptomatic from a respiratory standpoint; she has since tested negative for Covid. Acute metabolic encephalopathy: Resolved. The exact etiology remains unclear but was likely related to transient hepatobiliary obstruction given direct hyperbilirubinemia. She has no history of alcohol or BZD usage at home to indicate withdrawal. Delirium has improved throughout the hospital stay as her LFT abnormalities have normalized. Direct hyperbilirubinemia: trended up for over 7 days without a clear etiology. Associated with nausea and vomiting. She had unremarkable MRCP, RUQ US with doppler and HIDA scan this admission. She has been afebrile, hemodynamically stable and with multiple negative blood cultures. Tylenol level <10 on admission. Acute hepatitis panel negative. Ammonia normal. INR trended up from 0.99 on admission to 1.6. AST/ALT have been in the 300s. Alk phos is in the 600s. Total bilirubin 5.7 and direct 4.7. Lipase minimally elevated to 300s. Her home statin/lovaza have both been held throughout admission. Unfortunately, we do not have gastroenterology available at [facility], and she thus could not get an endoscopic work up. Regardless, she began to have improvement in her laboratory abnormalities on 08/21 and they have subsequently continued to trend in the right direction, coinciding with an improved mental status, appetite and oral intake. Low back pain due to compression fracture of first lumbar vertebra: MRI L-spine shows L1 vertebral body compression deformity with increased retropulsion and T12/L1-L1/L2 neural foraminal stenosis. IR consulted but she is not a candidate for IR intervention due to severity of the compression deformity. Orthopedic surgery consulted and felt that she might warrant transfer to a tertiary care facility for NSG evaluation/intervention; however, neurosurgeons at both [facility] and [place] felt that this was a chronic issue, that a compression fracture is not normally a mechanically unstable fracture, and agreed that, given lack of neurological deficits, this did not warrant urgent inpatient transfer, and both recommended outpatient NSG follow up. Her pain has been well controlled with Toradol and lidoderm patches. We have been avoiding opioids and BZD given delirium/advanced age. She has been ambulating with a walker. She has been repeatedly advised to always wear a TLSO brace when she is out of bed (she was fitted for one during her last hospitalization but has not been wearing it). Dispo: discharge home with daughter, Marian, and Home Health services for ongoing PT/OT. Her family is working on setting up [facility] near her children (in [place]). - Time Time Spent with patient: 35 or more minutes Anticipated Discharge Disposition: Home with Home Health Anticipated Discharge Timeframe: within 24 hours
[2020-08-23] MEDS: ACETAMINOPHEN 325 MG TABLET PO SCH (18:00)
[2020-08-23] MEDS: PHARMACY COMMUNICATION ORDER MC SCH (21:32)
[2020-08-24] MEDS: GABAPENTIN 100 MG CAPSULE PO SCH ×3 (00:53→16:08)
[2020-08-24] MEDS: KETOROLAC TROMETHAMINE INJ/PF 30 MG/1 ML SDV IV SCH ×3 (06:03→11:55)
[2020-08-24 06:14] LABS: ALBUMIN 2.1 g/dL (3.5-5.0); ALKALINE PHOSPHATASE 621 U/L (38-126); ASPARTATE AMINO TRANSFERASE 255 U/L (14-36); BILIRUBIN,DIRECT 2.3 mg/dL (0.0-0.4); TOTAL PROTEIN 4.5 g/dL (6.3-8.2)
[2020-08-24] MEDS: ASPIRIN 81 MG TABLET, ENT COATED PO SCH (09:04)
[2020-08-24] MEDS: BACLOFEN 10 MG TABLET PO SCH (09:04)
[2020-08-24] MEDS: ACETAMINOPHEN 325 MG TABLET PO SCH ×2 (09:05→14:59)
[2020-08-24] MEDS: METOPROLOL TARTRATE 50 MG TABLET PO SCH (09:05)
[2020-08-24] MEDS: PANTOPRAZOLE SODIUM 40 MG VIAL IV SCH (09:06)
[2020-08-24] MEDS: ENOXAPARIN SODIUM INJ 30 MG/0.3 ML DISP.SYRIN SUBCUT SCH (09:06)
[2020-08-24] MEDS: LIDOCAINE 5% (700 MG) TRANSDERMAL ADH..PATCH TP SCH ×3 (09:07→09:09)
[2020-08-24] MEDS: FLUTICASONE NASAL SPRAY 50 MCG/SPRY 120 SPRAY/16 GM NASL SCH (09:08)
--- NOTE | 2020-08-24 15:43 | PDOC DISCHARGE SUMMARY ---
Impression - Admit/DC Date/PCP Admission Date/Primary Care Provider: 08/14/20 20:15 SLOANE CERDA MD Discharge Date: 08/24/20 - Discharge Diagnosis (1) Direct hyperbilirubinemia Is this a current diagnosis for this admission?: Yes (2) Nausea and vomiting in adult Is this a current diagnosis for this admission?: Yes (3) Diarrhea Is this a current diagnosis for this admission?: Yes (4) Compression fracture of L1 lumbar vertebra Is this a current diagnosis for this admission?: Yes (5) Anxiety Is this a current diagnosis for this admission?: Yes (6) Intractable low back pain Is this a current diagnosis for this admission?: Yes - Assessment Summary: Ms. Kennedi Saldaña is an 85 year old woman with past medical history significant for HTN, HLD, T2DM, OA, anxiety and recent L1 compression fracture who presented to the ED on 08/14/2020 with acutely altered mental status. On admission, she was found to be delirious and dehydrated. She had apparently not been able to tolerate oral intake at home. Of note, the patient struggles with uncontrolled back pain due to a L1 compression fracture that she suffered in 06/2020. She has had frequent ED visits due to back pain since 06/2020. She has previously been told that she is not a candidate for vertebroplasty or kyphoplasty, and has received conservative treatment with TLSO brace and oral pain medications, and advised to follow up as outpatient with NSG. In late 06/2020, she was admitted at [facility] for inability to ambulate due to uncontrolled back pain and was discharged briefly to a SNF, with subsequent improvement in both her back pain and her mobility. Of note, she was incidentally noted to be Covid+ during her last admission in 06/2020, although she was completely asymptomatic from a respiratory standpoint; she has since tested negative for Covid. Acute metabolic encephalopathy: Resolved. The exact etiology remains unclear but was likely related to transient hepatobiliary obstruction given direct hyperbilirubinemia. She has no history of alcohol or BZD usage at home to indicate withdrawal. Delirium has improved throughout the hospital stay as her LFT abnormalities have normalized. Direct hyperbilirubinemia: trended up for over 7 days without a clear etiology. Associated with nausea and vomiting. She had unremarkable MRCP, RUQ US with doppler and HIDA scan this admission. She has been afebrile, hemodynamically stable and with multiple negative blood cultures. Tylenol level <10 on admission. Acute hepatitis panel negative. Ammonia normal. INR trended up from 0.99 on admission to 1.6. AST/ALT have been in the 300s. Alk phos is in the 600s. Total bilirubin 5.7 and direct 4.7. Lipase minimally elevated to 300s. Her home statin/lovaza have both been held throughout admission. Unfortunately, we do not have gastroenterology available at [facility], and she thus could not get an endoscopic work up. Regardless, she began to have improvement in her laboratory abnormalities on 08/21 and they have subsequently continued to trend in the right direction, coinciding with an improved mental status, appetite and oral intake. Low back pain due to compression fracture of first lumbar vertebra: MRI L-spine shows L1 vertebral body compression deformity with increased retropulsion and T12/L1-L1/L2 neural foraminal stenosis. IR consulted but she is not a candidate for IR intervention due to severity of the compression deformity. Orthopedic surgery consulted and felt that she might warrant transfer to a tertiary care [facility] for NSG evaluation/intervention; however, neurosurgeons at both [facility] and [place] felt that this was a chronic issue, that a compression fracture is not normally a mechanically unstable fracture, and agreed that, given lack of neurological deficits, this did not warrant urgent inpatient transfer, and both recommended outpatient NSG follow up. Her pain has been well controlled with Toradol and lidoderm patches. We have been avoiding opioids and BZD given delirium/advanced age. She has been ambulating with a walker. She has been repeatedly advised to always wear a TLSO brace when she is out of bed (she was fitted for one during her last hospitalization but has not been wearing it). Dispo: discharge home with daughter, Marian, and Home Health services for ongoing PT/OT. Her family is working on setting up [facility] near her children (in [place]). She has outpatient NSG follow up in 3 days. - Additional Information Resuscitation Status: Full Code Discharge Diet: Cardiac Discharge Activity: Activity As Tolerated Referrals: SLOANE CERDA MD [Primary Care Provider] - Prescriptions: Baclofen [Baclofen 10 mg Tablet] 10 mg PO BID #60 tablet Duloxetine HCl [Cymbalta 20 mg Capsule.] 20 mg PO DAILY #30 capsule. Fluticasone Propionate [Flonase Nasal [place] 50 Mcg/[place] 16 gm] 1 spray NASL DAILY #1 ea Acetaminophen [Mapap] 1,000 mg PO BID #120 tablet Naproxen [Naprosyn 375 mg Tablet] 375 mg PO BID #60 tablet Gabapentin [Neurontin 100 mg Capsule] 200 mg PO TID #180 capsule Pantoprazole Sodium [Protonix [address] Tablet] 40 mg PO QAM #30 tablet. Metoprolol Succinate [Toprol Xl 25 mg Tab.sr] 25 mg PO DAILY #30 tab.sr.24h Cholecalciferol (Vitamin D3) [Vitamin D3] 1,000 unit PO DAILY #30 Ondansetron [Zofran Odt 4 mg Tablet] 4 mg PO Q6HP PRN #30 tab.rapdis PRN Reason: For Nausea/Vomiting Home Medications: Aspirin [Ecotrin 81 mg EC Tablet] 81 mg PO DAILY 08/15/20 Acetaminophen [Mapap] 1,000 mg PO BID #120 tablet 08/24/20 Baclofen [Baclofen 10 mg Tablet] 10 mg PO BID #60 tablet 08/24/20 Cholecalciferol (Vitamin D3) [Vitamin D3] 1,000 unit PO DAILY #30 08/24/20 Duloxetine HCl [Cymbalta 20 mg Capsule.] 20 mg PO DAILY #30 capsule. 08/24/20 Fluticasone Propionate [Flonase Nasal [place] 50 Mcg/[place] 16 gm] 1 spray NASL DAILY #1 ea 08/24/20 Gabapentin [Neurontin 100 mg Capsule] 200 mg PO TID #180 capsule 08/24/20 Metoprolol Succinate [Toprol Xl 25 mg Tab.sr] 25 mg PO DAILY #30 tab.sr.24h 08/24/20 Naproxen [Naprosyn 375 mg Tablet] 375 mg PO BID #60 tablet 08/24/20 Ondansetron [Zofran Odt 4 mg Tablet] 4 mg PO Q6HP PRN #30 tab.rapdis 08/24/20 Pantoprazole Sodium [Protonix [address] Tablet] 40 mg PO QAM #30 tablet. 08/24/20 History of Present Illiness History of Present Illness: KENNEDI SALDAÑA is a 85 year old female Physical Exam Vital Signs: Temp Pulse Resp BP Pulse Ox 97.7 F 79 16 143/67 H 96 08/24/20 11:47 08/24/20 11:47 08/24/20 11:47 08/24/20 11:47 08/24/20 11:47 Intake & Output 08/23/20 08/24/20 08/25/20 06:59 06:59 06:59 Intake Total 3760 522 640 Balance 3760 522 640 Weight 57.1 kg 57.6 kg Results Laboratory Results: WBC 8.6 10^3/uL (4.0-10.5) 08/21/20 08:19 RBC 3.89 10^6/uL (3.72-5.28) 08/21/20 08:19 Hgb 11.6 g/dL (12.0-15.5) L 08/21/20 08:19 Hct 34.2 % (36.0-47.0) L 08/21/20 08:19 MCV 88 fl (80-97) 08/21/20 08:19 MCH 29.8 pg (27.0-33.4) 08/21/20 08:19 MCHC 33.9 g/dL (32.0-36.0) 08/21/20 08:19 RDW 15.6 % (11.5-14.0) H 08/21/20 08:19 Plt Count 207 10^3/uL (150-450) 08/21/20 08:19 Lymph % (Auto) 8.8 % (13-45) L 08/21/20 08:19 Stevens % (Auto) 8.6 % (3-13) 08/21/20 08:19 Eos % (Auto) 0.2 % (0-6) 08/21/20 08:19 Baso % (Auto) 0.2 % (0-2) 08/21/20 08:19 Absolute Neuts (auto) 7.1 10^3/uL (1.7-8.2) 08/21/20 08:19 Absolute Lymphs (auto) 0.8 10^3/uL (0.5-4.7) 08/21/20 08:19 Absolute Monos (auto) 0.7 10^3/uL (0.1-1.4) 08/21/20 08:19 Absolute Eos (auto) 0.0 10^3/uL (0.0-0.6) 08/21/20 08:19 Absolute Basos (auto) 0.0 10^3/uL (0.0-0.2) 08/21/20 08:19 Seg Neutrophils % 82.2 % (42-78) H 08/21/20 08:19 ESR 25 mm/hr (0-30) 08/21/20 08:19 PT 19.3 SEC (11.4-15.4) H 08/21/20 08:19 INR 1.62 08/21/20 08:19 APTT 30.6 SEC (23.5-35.8) 08/21/20 08:19 D-Dimer 2.82 ug/mL (0.00-0.50) H 08/19/20 05:30 VBG pH 7.39 (7.30-7.42) 08/14/20 12:13 VBG pCO2 45.1 mmHg (35-63) 08/14/20 12:13 VBG HCO3 26.6 mmol/L (20-32) 08/14/20 12:13 VBG Base Excess 1.2 mmol/L 08/14/20 12:13 Sodium 136.4 mmol/L (137-145) L 08/23/20 05:43 Potassium 4.1 mmol/L (3.6-5.0) 08/23/20 05:43 Chloride 111 mmol/L (98-107) H 08/23/20 05:43 Carbon Dioxide 20 mmol/L (22-30) L 08/23/20 05:43 Anion Gap 5 (5-19) 08/23/20 05:43 BUN 14 mg/dL (7-20) 08/23/20 05:43 Creatinine 0.52 mg/dL (0.52-1.25) 08/23/20 05:43 Est GFR ( Amer) > 60 (>60) 08/23/20 05:43 Est GFR (MDRD) Non-Af > 60 (>60) 08/23/20 05:43 Glucose 136 mg/dL (75-110) H 08/23/20 05:43 POC Glucose 161 mg/dL (70-110) H 08/22/20 05:46 Hemoglobin A1c % 7.6 % (4.7-6.0) H 08/15/20 06:00 Lactic Acid 0.8 mmol/L (0.7-2.1) 08/21/20 08:19 Calcium 8.5 mg/dL (8.4-10.2) 08/23/20 05:43 Magnesium 1.7 mg/dL (1.6-2.3) 08/22/20 06:07 Total Bilirubin 3.0 mg/dL (0.2-1.3) H 08/24/20 05:11 Direct Bilirubin 2.3 mg/dL (0.0-0.4) H 08/24/20 05:11 Neonat Total Bilirubin Not Reportable 08/24/20 05:11 Neonat Direct Bilirubin Not Reportable 08/24/20 05:11 Neonat Indirect Bili Not Reportable 08/24/20 05:11 AST 255 U/L (14-36) H 08/24/20 05:11 ALT 233 U/L (<35) H 08/24/20 05:11 Alkaline Phosphatase 621 U/L (38-126) H 08/24/20 05:11 Ammonia < 8.7 umol/L (9-33) L 08/17/20 12:25 Troponin I 0.030 ng/mL 08/14/20 12:13 C-Reactive Protein 49.9 mg/L (<10.0) H 08/21/20 09:15 Total Protein 4.5 g/dL (6.3-8.2) L 08/24/20 05:11 Albumin 2.1 g/dL (3.5-5.0) L 08/24/20 05:11 Triglycerides 142 mg/dL (<150) 08/15/20 06:00 Cholesterol 118.93 mg/dL (0-200) 08/15/20 06:00 LDL Cholesterol Direct 44 mg/dL (<100) 08/15/20 06:00 VLDL Cholesterol 28.0 mg/dL (10-31) 08/15/20 06:00 HDL Cholesterol 48 mg/dL (>40) 08/15/20 06:00 Amylase 71 U/L (30-110) 08/15/20 06:00 Lipase 336.5 U/L (23-300) H 08/16/20 04:28 TSH 2.40 uIU/mL (0.47-4.68) 08/15/20 06:00 Urine Color YELLOW 08/16/20 03:34 Urine Appearance CLEAR 08/16/20 03:34 Urine pH 5.0 (5.0-9.0) 08/16/20 03:34 Ur Specific [place] 1.009 08/16/20 03:34 Urine Protein NEGATIVE mg/dL (NEGATIVE) 08/16/20 03:34 Urine Glucose (UA) NEGATIVE mg/dL (NEGATIVE) 08/16/20 03:34 Urine Ketones 20 mg/dL (NEGATIVE) H 08/16/20 03:34 Urine Blood NEGATIVE (NEGATIVE) 08/16/20 03:34 Urine Nitrite (Reflex) NEGATIVE (NEGATIVE) 08/16/20 03:34 Urine Bilirubin NEGATIVE (NEGATIVE) 08/16/20 03:34 Urine Urobilinogen NEGATIVE mg/dL (<2.0) 08/16/20 03:34 Leukocyte Esterase Rfl TRACE (NEGATIVE) H 08/16/20 03:34 Urine RBC (Auto) 1 /HPF 08/16/20 03:34 Urine Bacteria (Auto) TRACE /HPF 08/14/20 15:34 Urine WBC (Reflex) 3 /HPF 08/16/20 03:34 Squamous Epi Cells Auto 1 /HPF 08/16/20 03:34 Urine Mucus (Auto) RARE /LPF 08/16/20 03:34 Urine Ascorbic Acid NEGATIVE (NEGATIVE) 08/16/20 03:34 Acetaminophen < 10 ug/mL (10-30) L 08/14/20 12:13 COVID-19 Source See comment 08/15/20 15:00 COVID-19 ([facility]) Not Detected (Not Detect) 08/15/20 15:00 Hepatitis A IgM Ab Negative (Negative) 08/15/20 06:00 Hep Bs Antigen Negative (Negative) 08/15/20 06:00 Hep B Core IgM Ab Negative (Negative) 08/15/20 06:00 Hepatitis C Antibody <0.1 s/co ratio (0.0-0.9) 08/15/20 06:00 08/14/20 12:13 Troponin I 0.030 Impressions: Chest X-Ray 08/14/20 11:27 IMPRESSION: No evidence of acute cardiopulmonary abnormality. Abdomen/Pelvis CT 08/14/20 11:28 IMPRESSION: 1. No evidence of urolithiasis or obstructive uropathy. 2. L1 vertebral body compression deformity with retropulsed component is progressed relative to 07/12/2020 MR imaging. Abdomen Ultrasound 08/14/20 13:30 IMPRESSION: No acute findings. Simple right renal cyst. Abdomen MRI 08/14/20 15:36 IMPRESSION: NORMAL HEPATOBILIARY SYSTEM. NO STONES OR COMMON DUCT ABNORMALITIES. CHRONIC AND INCIDENTAL FINDINGS INCLUDE A 3.7 CM LEFT OVARIAN CYST. GIVEN POSTMENOPAUSAL STATE, RECOMMEND FOLLOW-UP SONOGRAPHIC EVALUATION IN 12 MONTHS. Lumbar Spine MRI 08/14/20 15:36 IMPRESSION: Progression in a previously demonstrated L1 vertebral body compression deformity with increased retropulsion resulting in near complete effacement of the CSF signal at this level. This also effects significant neural foraminal stenosis at the T12/L1 and L1/2 levels as detailed above. Abdomen Ultrasound 08/17/20 00:00 IMPRESSION: NORMAL RIGHT UPPER QUADRANT ULTRASOUND. Head CT 08/17/20 00:00 IMPRESSION: No acute intracranial abnormality. Hepatobiliary Scan Nuclear Medicine 08/19/20 00:00 IMPRESSION: Limited examination. No evidence of biliary obstruction. Lower Extremity CT 08/20/20 00:00 IMPRESSION: Osteopenia. No evidence of acute osseous injury. Lumbar Spine MRI 08/23/20 00:00 IMPRESSION: Increasing edema within L1 compression fracture but no significant change in the degree of retropulsion. Stroke Is this a Stroke Patient?: No Acute Heart Failure Is this a Heart Failure Patient?: No
[2020-08-24 15:49] VITALS: BP 158/79
[2020-08-24] MEDS ORDERED: HYDROMORPHONE HCL 2 MG TABLET PO ONE (16:03)
[2020-08-24] MEDS ORDERED: HYDROMORPHONE HCL 2 MG TABLET ONE (16:06)
== END 2020-08-24 16:59 | disposition home health service (06) | DRG 444 ==
LOC: ER 11:03 → EH 20:15 → 5 23:30 → 3N 08-15 11:02 → 4S 08-18 12:40
PROVIDERS: ADMIT Emergency Medicine; ATTEND Hospitalist
DX: K83.1 Obstruction of bile duct (principal); G93.41 Metabolic encephalopathy; S32.010K Wedge compression fracture of first lumbar vertebra, subsequent encounter for fracture with nonunion; E86.0 Dehydration; E80.6 Other disorders of bilirubin metabolism; R41.0 Disorientation, unspecified; E11.65 Type 2 diabetes mellitus with hyperglycemia; E78.5 Hyperlipidemia, unspecified; I10 Essential (primary) hypertension; K21.9 Gastro-esophageal reflux disease without esophagitis; M19.90 Unspecified osteoarthritis, unspecified site; F41.1 Generalized anxiety disorder; M25.551 Pain in right hip; R94.5 Abnormal results of liver function studies; Z20.828 Contact with and (suspected) exposure to other viral communicable diseases; Z86.19 Personal history of other infectious and parasitic diseases; Z87.891 Personal history of nicotine dependence; Z79.899 Other long term (current) drug therapy; Z79.84 Long term (current) use of oral hypoglycemic drugs; Z82.3 Family history of stroke; Z83.3 Family history of diabetes mellitus; Z82.49 Family history of ischemic heart disease and other diseases of the circulatory system; Z78.1 Physical restraint status; Z79.82 Long term (current) use of aspirin; X58.XXXD Exposure to other specified factors, subsequent encounter; R19.7 Diarrhea, unspecified
CPT/HCPCS: 36415; 70450; 71045; 72148; 74176; 74181; 76705; 78226; 80053; 80061; 80074; 80076; 80307; 81001; 82140; 82150; 82803; 82962; 83036; 83605; 83690; 83735; 84443; 84484; 85025; 85027; 85379; 85610; 85652; 85730; 86140; 87040; 87635; 93005; 93010; 96361; 96374; 96376; 99285; A9537; C9113; C9803; J1170; J1630; J1644; J1650; J1885; J2270; J2405; J3475; J3480; J3486; J3490; J7030; J7060; J7120; Q9969; S0119

== ENCOUNTER → 2020-11-14 | Outpatient (CLI) | payer MEDICARE, OTHER ==
[2020-11-14 16:14] LABS: ABSOLUTE BASOPHILS # (AUTO) 0.1 10^3/uL (0.0-0.2); ABSOLUTE EOSINOPHILS # (AUTO) 0.2 10^3/uL (0.0-0.6); ABSOLUTE LYMPHOCYTES (AUTO) 1.7 10^3/uL (0.5-4.7); ABSOLUTE MONOCYTES (AUTO) 0.5 10^3/uL (0.1-1.4); ABSOLUTE NEUT (AUTO) 4.4 10^3/uL (1.7-8.2); BASOPHILS % (AUTO) 1.1 % (0-2); EOSINOPHILS % (AUTO) 2.8 % (0-6); HEMATOCRIT 37.1 % (36.0-47.0); HEMOGLOBIN 12.1 g/dL (12.0-15.5); LYMPHOCYTES % (AUTO) 25.1 % (13-45); MEAN CORPUSCULAR HEMOGLOBIN 29.4 pg (27.0-33.4); MEAN CORPUSCULAR HGB CONC 32.6 g/dL (32.0-36.0); MEAN CORPUSCULAR VOLUME 90 fl (80-97); MONOCYTES % (AUTO) 7.1 % (3-13); PLATELET COUNT 218 10^3/uL (150-450); RED BLOOD COUNT 4.11 10^6/uL (3.72-5.28); RED CELL DISTRIBUTION WIDTH 14.1 % (11.5-14.0); SEGMENTED NEUTROPHILS % (AUTO) 63.9 % (42-78); TOTAL CELLS COUNTED % (AUTO) 100 %; WHITE BLOOD COUNT 6.9 10^3/uL (4.0-10.5)
[2020-11-14 16:28] LABS: ALBUMIN 3.8 g/dL (3.5-5.0); ALKALINE PHOSPHATASE 620 U/L (38-126); ANION GAP 5 (5-19); ASPARTATE AMINO TRANSFERASE 149 U/L (14-36); BILIRUBIN,DIRECT 0.2 mg/dL (0.0-0.4); BILIRUBIN,TOTAL 0.5 mg/dL (0.2-1.3); BLOOD UREA NITROGEN 18 mg/dL (7-20); CALCIUM 9.9 mg/dL (8.4-10.2); CARBON DIOXIDE 28 mmol/L (22-30); CHLORIDE 103 mmol/L (98-107); CHOLESTEROL 234.82 mg/dL (0-200); GLUCOSE 184 mg/dL (75-110); IRON(TIBC) 70.5 ug/dL (37-170); POTASSIUM 5.2 mmol/L (3.6-5.0); TOTAL PROTEIN 7.2 g/dL (6.3-8.2)
== END ==
LOC: OD 14:36
PROVIDERS: ATTEND Family Medicine
DX: E11.9 Type 2 diabetes mellitus without complications (principal); K26.0 Acute duodenal ulcer with hemorrhage; K75.4 Autoimmune hepatitis; E78.5 Hyperlipidemia, unspecified; E55.9 Vitamin D deficiency, unspecified; R53.1 Weakness
CPT/HCPCS: 36415; 80053; 82306; 82465; 82728; 83036; 83540; 83550; 83718; 84443; 85025